=== PATIENT | female | born 1975 | race Caucasian/White ===

== ENCOUNTER → 2020-03-13 08:14 | Outpatient (CLI) | payer BC, SELFPAY ==
--- NOTE | ~2020-03-13 | MR_ITS ---
EXAMINATION: MR foot RT wo con DATE: 03/13/2020 09:02 INDICATION: Right foot pain TECHNIQUE: Magnetic resonance imaging (MRI) of the right fore/mid foot was performed without intraven ous contrast. Sequences included sagittal T1-weighted FSE, sagittal fluid sensitive FSE STIR, coronal PD-weighted FS FSE, coronal T1-weighted FSE, axial PD-weighted FS FSE, and axial PD-weighted FSE. COMPARISON: None FINDINGS: Bone alignment is normal. Low signal intensity bone island at the proximal diaphysis of the first met atarsal. Otherwise normal marrow signal throughout with no fracture, stress reaction or pathologic ma rrow replacing process. Mild osteoarthritis at the first metatarsophalangeal joint. No cortical erosi ons to suggest inflammatory arthritis. No joint effusions, bursitis, tenosynovitis or other abnormal fluid collections. Flexor and extensor tendons are normal. The Lisfranc ligament complex as well as t he collateral ligament complex at the metatarsophalangeal and interphalangeal joints. No abnormal mas ses identified. Specifically no Cespedes's neuroma. IMPRESSION: 1. Mild osteoarthritis at the first metatarsophalangeal joint. Reviewed, dictated and finalized at location A. STANT PRODUCER
== END ==
PROVIDERS: PCP Physician Assistant
DX: M19.071 Primary osteoarthritis, right ankle and foot (principal)
CPT/HCPCS: 73718

== ENCOUNTER 2020-03-22 11:05 | Outpatient (CLI) | payer BC, SELFPAY ==
--- NOTE | ~2020-03-22 | MM_ITS ---
EXAMINATION: MM screening jailene BI w jose HISTORY: Screening mammogram TECHNIQUE: Craniocaudal and mediolateral oblique 3-D tomosynthesis images were obtained and synthetic 2-D images were generated. CAD analysis was submitted and interpreted. COMPARISON: 03/20/2019, 03/14/2018, 02/24/2017 bilateral digital screening mammogram examinations BREAST PARENCHYMAL COMPOSITION: There are scattered areas of fibroglandular density. FINDINGS: There is no evidence of suspicious mass, calcification, or architectural distortion to sugg est malignancy in either breast. There has been no suspicious interval change. IMPRESSION: 1. No mammographic evidence of malignancy. 2. Recommend routine screening mammography in one year. BI-RADS Category 1: Negative Reviewed, dictated and finalized at location B. 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
== END 2020-03-22 11:06 | disposition home or self-care (01) ==
LOC: ANHIMG 11:08
PROVIDERS: PCP Physician Assistant; Visit Provider Obstetrics & Gynecology
DX: Z12.31 Encounter for screening mammogram for malignant neoplasm of breast (principal)
CPT/HCPCS: 77063; 77067

== ENCOUNTER 2020-04-22 13:19 | Emergency (ER) | payer BC, SELFPAY ==
--- NOTE | ~2020-04-22 | XR_ITS ---
EXAMINATION: XR chest 1V portable 04/22/2020 14:00 INDICATION: Chest pressure. Hypertension. PROCEDURE: AP portable chest COMPARISON: 12/15/2017 FINDINGS: The lungs are clear. The cardiomediastinal silhouette is within normal limits. There are no pleural effusions. There is no pneumothorax suspected. IMPRESSION: 1: NO ACUTE CARDIOPULMONARY DISEASE. Reviewed, dictated and finalized at location A. HANDLER
[2020-04-22 13:27] VITALS: BP 146/103; PULSE 85; RESP 18; TEMP 36.8; O2SAT 100
--- NOTE | 2020-04-22 14:15 | ED.URI ---
HPI - URI/Sore Throat General Chief Complaint: Upper Respiratory Infection Stated Complaint: sob, exp to covid Time Seen by Provider: 04/22/20 13:23 Source: patient Mode of arrival: ambulatory Limitations: no limitations History of Present Illness HPI Narrative: Patient is 45 years old white female complaining of general body aches, dry cough and chest tightness for the last 3 to 4 days. Patient's had similar symptoms started 5 days ago, tested positive for Covid today. Patient denies any fever, headache, nausea, vomiting. Complaining also of intermittent diarrhea. MD elicited complaint: cough Related Data Allergies Allergy/AdvReac Type Severity Reaction Status Date / Time No Known Allergies Allergy Uncoded 02/19/19 09:50 Review of Systems Review of Systems: Narrative: CONSTITUTIONAL: Denies fever, chills, or sweats. EYES: Denies visual changes, redness, or discharge. ENT: Denies rhinorrhea, congestion, sore throat, or otalgia. CARDIOVASCULAR: Denies chest pain, palpitations, or edema. RESPIRATORY: Cough GASTROINTESTINAL: Denies abdominal pain, nausea, vomiting, or diarrhea. GENITOURINARY: Denies dysuria or hematuria. SKIN: Denies rash or itching. MUSCULOSKELETAL: Denies back pain, joint pain, or myalgia. NEUROLOGIC: Denies headache, numbness, or weakness. PSYCHIATRIC: Denies anxiety or depression. PMFSH Family History Family History Father Hypertension Family history of emphysema Patient's father is Mother Family history of diabetes mellitus in first degree relative Family history of malignant neoplasm of breast in first degree relative Diabetes mellitus Social History Social History Smoking status: Never smoker Alcohol intake: current Exam Narrative: Exam Narrative: General appearance: Well-developed, well-nourished Skin: Normal color Head: Normocephalic, nontraumatic ENT: Oropharynx normal, ears normal, nose normal Neck: Supple, nontender Chest and respiratory: Airway patent, no respiratory distress, no accessory muscle use Heart: Regular rate/rhythm Neurologic: Alert and oriented ?3, ENTRY LEVEL ASSISTANT MANAGER is normal as tested, no gross motor deficit Course Course Emergency Course: Stable Vital Signs Vital signs: Vital Signs Temperature 36.8 C 04/22/20 13:27 Pulse Rate 85 04/22/20 13:27 Respiratory Rate 18 04/22/20 13:27 Blood Pressure 146/103 H 04/22/20 13:27 Pulse Oximetry 100 04/22/20 13:27 Temperature 36.8 C 04/22/20 13:27 Pulse Rate 85 04/22/20 13:27 Respiratory Rate 18 04/22/20 13:27 Blood Pressure 146/103 H 04/22/20 13:27 Pulse Oximetry 100 04/22/20 13:27 MDM - URI/Sore Throat MDM Narrative Medical decision making narrative: Covid infection is my concern. Patient looks okay, does not have fever or trouble breathing, oxygen saturation at 99 to 100% on room air, patient denying any chest pain Covid test plus chest x-ray ordered. Further plan to follow Differential Diagnosis Differential diagnosis: Likely upper respiratory infection and viral infection Lab Data Labs: Lab Results 04/22/20 Range/Units 13:39 SARS-CoV-2 RNA (RT-PCR) Pending Critical Care Time Critical Care Time Critical Care Time: No Discharge Plan Discharge Clinical Impression: Viral infection, Close exposure to COVID-19 virus Patient Disposition: Home, Self-Care Condition: Stable Instructions: How To Wash Your Hands (ED), Viral Syndrome (ED), Droplet Precautions (ED), COVID-19 (Coronavirus Disease 2019) (ED), Face Coverings (Masks) and COVID-19 (ED) Add
[2020-04-22 14:38] VITALS: BP 128/72; PULSE 80; RESP 18; O2SAT 100
[2020-04-23 01:42] LABS: SARS-CoV-2 RNA PCR Positive
== END 2020-04-22 14:41 | disposition home or self-care (01) ==
PROVIDERS: Emergency Provider Emergency Medicine; PCP Physician Assistant
DX: U07.1 COVID-19 (principal)
CPT/HCPCS: 71045; 87635; 99283; C9803; U0003

== ENCOUNTER 2020-05-14 06:49 | Outpatient (CLI) | payer BC, SELFPAY ==
[2020-05-14 07:39] LABS: Basophils Percent Auto 0.3 % (0.2-1.2); Eosinophils Absolute Auto 0.1 K/mm3 (0-0.3); Eosinophils Percent Auto 1.1 % (0-4.4); Hemoglobin 13.5 g/dL (12.0-15.0); Immature Granulocyte Absolute 0.02 K/mm3 (0.00-0.031); Immature Granulocyte Percent A 0.3 % (0-0.5); Lymphocytes Percent Auto 19.9 % (18.3-44.2); Mean Corpuscular HGB Conc 33.8 g/dl (32-36); Mean Corpuscular Hemoglobin 31.1 pg (26-34); Mean Corpuscular Volume 92.2 fl (80-100); Mean Platelet Volume 8.7 fl (7.4-10.4); Monocytes Absolute Auto 0.7 K/mm3 (0.1-0.6); Monocytes Percent Auto 10.1 % (2.6-8.5); Neutrophils Absolute Auto 4.5 K/mm3 (1.3-6.7); Neutrophils Percent Auto 68.3 % (45.5-73.1); Platelet Count Result 280 k/mm3 (150-375); Red Blood Count 4.34 M/mm3 (4.2-5.4); Red Cell Distribution Width 12.7 % (11.5-14.5); White Blood Count 6.5 K/mm3 (4.5-10.0)
[2020-05-14 07:54] LABS: Add Urine Microscopic? YES; Appearance Urine Clear (Clear); Bacteria Urine Trace /hpf; Bilirubin Urine Negative (Negative); Blood Urine Negative (Negative); Color Urine Yellow (Yellow); Glucose Urine UA Negative (Negative); Ketones Urine Trace mg/dL (Negative); Leukocyte Esterase Ur 1+ LEU/UL (Negative); Mucus Urine Rare /lpf; Nitrate Urine Negative (Negative); Protein Urine 1+ mg/dL (Negative); Specific Grav Ur 1.027 (1.001-1.035); Squamous Epithelial Cell Urine Many /hpf (Few); Urobilinogen Urine Negative mg/dL (<2.0); WBC Urine 16-20 /hpf
[2020-05-14 07:55] LABS: Alanine Aminotransferase 44 U/L (4-35); Albumin Level 3.9 g/dL (3.5-5.1); Alkaline Phosphatase 61 U/L (38-126); Anion Gap 7 mmol/L (8-16); Aspartate Amino Transferase 83 U/L (14-36); Bilirubin,Total 1.3 mg/dL (0.2-1.3); Blood Urea Nitrogen 18 mg/dL (7-17); Calcium 8.8 mg/dL (8.4-10.2); Carbon Dioxide 24 mmol/L (22-30); Chloride 105 mmol/L (98-107); Cholesterol 162 mg/dL (0-200); Estimated Glomerular Filt Rate 54; Glucose 92 mg/dL (65-105); HDL Direct 52 mg/dL; Potassium 4.2 mmol/L (3.4-5.0); Sodium 136 mmol/L (137-145); Triglycerides 131 mg/dL (<150)
[2020-05-14 08:05] LABS: LDL Cholesterol Direct 78 mg/dL
[2020-05-14 08:12] LABS: D Dimer 0.59 ug/mL (<0.48)
[2020-05-14 08:17] LABS: Hemoglobin A1C 4.7 % (<5.7)
[2020-05-14 09:14] LABS: Free T4 Free Thyroxine 1.08 ng/mL (0.78-2.19)
== END 2020-05-14 06:50 | disposition home or self-care (01) ==
LOC: ANHLAB 06:51
PROVIDERS: PCP Physician Assistant; Visit Provider Physician Assistant
DX: Z00.01 Encounter for general adult medical examination with abnormal findings (principal); Z13.1 Encounter for screening for diabetes mellitus
CPT/HCPCS: 36415; 80053; 80061; 81001; 83036; 84439; 84443; 85025; 85380; 87086

== ENCOUNTER 2020-05-19 11:15 | Outpatient (CLI) | payer BC, SELFPAY ==
--- NOTE | ~2020-05-19 | CT_ITS ---
EXAMINATION: CTA chest PE protocol EXAM DATE: 05/19/2020 11:34 INDICATION: COVID pneumonia. Elevated d-dimer. Chest pain and cough and shortness of breath. TECHNIQUE: Spiral CTA of the chest (pulmonary arteries) was performed with 100 cc Omnipaque 350 intr avenous contrast injection. Images were acquired during the pulmonary arterial phase. Coronal maxi mum intensity projection 3D-reconstructions were created by the technologist on dedicated workstation . Axial, coronal and sagittal reformatted images were reviewed. The dose-length product (DLP) for t his examination was 433.47 mGy-cm. The exposure was tailored according to patient size (auto mA exp osure control), and iterative reconstruction (ASIR) was used as additional dose reduction technique. There is no prior study for comparison. FINDINGS: Pulmonary arteries are well opacified and without intraluminal filling defects. No thora cic aortic dissection. Dependent groundglass opacity most likely atelectasis given distribution. Th ere are no pleural or pericardial effusions. Tracheobronchial tree is patent. There is no mediast inal, hilar or axillary lymphadenopathy. There is no pneumothorax. Heart normal in size. No kimberlyn dence of coronary arterial calcification. Upper abdomen is unremarkable. The bones are unremarkabl e. IMPRESSION: 1. Dependent groundglass opacity, likely atelectasis. 2. No pulmonary emboli. Reviewed, dictated and finalized at location B. AR WORKER
== END 2020-05-19 11:16 | disposition home or self-care (01) ==
PROVIDERS: PCP Physician Assistant; Visit Provider Physician Assistant
DX: R79.1 Abnormal coagulation profile (principal); R91.8 Other nonspecific abnormal finding of lung field
CPT/HCPCS: 71275; Q9967

== ENCOUNTER → 2021-03-24 07:37 | Outpatient (CLI) | payer BC, SELFPAY ==
--- NOTE | ~2021-03-24 | MM_ITS ---
EXAMINATION: MM screening jailene BI w jose HISTORY: Screening mammogram TECHNIQUE: Craniocaudal and mediolateral oblique 3-D tomosynthesis images were obtained and synthetic 2-D images were generated. CAD analysis was submitted and interpreted. COMPARISON: 03/22/2020, 03/20/2019, 03/14/2018 bilateral screening mammogram examinations BREAST PARENCHYMAL COMPOSITION: There are scattered areas of fibroglandular density. FINDINGS: There is no evidence of suspicious mass, calcification, or architectural distortion to sugg est malignancy in either breast. There has been no suspicious interval change. IMPRESSION: 1. No mammographic evidence of malignancy. 2. Recommend routine screening mammography in one year. BI-RADS Category 1: Negative Reviewed, dictated and finalized at location A. ECTOR BICYCLE
== END ==
PROVIDERS: PCP Physician Assistant; Visit Provider Obstetrics & Gynecology
DX: Z12.31 Encounter for screening mammogram for malignant neoplasm of breast (principal)
CPT/HCPCS: 77063; 77067

== ENCOUNTER → 2022-03-26 07:24 | Outpatient (CLI) | payer BC, SELFPAY ==
--- NOTE | ~2022-03-26 | MM_ITS ---
EXAMINATION: MM screening jailene BI w jose HISTORY: Screening TECHNIQUE: Craniocaudal and mediolateral oblique 3-D tomosynthesis images were obtained and synthetic 2-D images were generated. CAD analysis was submitted and interpreted. COMPARISON: Comparison to multiple prior studies sequentially, with oldest reviewed study dated 09/2015. BREAST PARENCHYMAL COMPOSITION: There are scattered areas of fibroglandular density. FINDINGS: There is no evidence of suspicious mass, calcification, or architectural distortion to sugg est malignancy in either breast. There has been no suspicious interval change. IMPRESSION: 1. No mammographic evidence of malignancy. 2. Recommend routine screening mammography in one year. BI-RADS Category 1: Negative Reviewed, dictated and finalized at location A. OPAEDIC TECHNOLOGIST
== END ==
PROVIDERS: PCP Physician Assistant; Visit Provider Obstetrics & Gynecology
DX: Z12.31 Encounter for screening mammogram for malignant neoplasm of breast (principal)
CPT/HCPCS: 77063; 77067

== ENCOUNTER 2022-07-13 09:44 | Outpatient (CLI) | payer BC, SELFPAY ==
--- NOTE | ~2022-07-13 | US_ITS ---
US venous doppler LE RT DATE: 07/13/2022 10:18 INDICATION: Right calf pain TECHNIQUE: Real-time and color flow imaging and Doppler analysis of the veins of the right lower extr emity COMPARISON: 05/24/2018 Right lower extremity venous duplex examination FINDINGS: The right greater saphenous vein is patent. There is spontaneous and phasic flow and normal augmentation and color flow signal and normal compression of the deep veins of the right lower extre mity. IMPRESSION: No evidence of deep venous thrombosis of right lower extremity Reviewed, dictated and finalized at Location A. Reviewed, dictated and finalized at location L. HEADER
== END 2022-07-13 09:45 | disposition home or self-care (01) ==
LOC: ANHIMG 09:49
PROVIDERS: PCP Physician Assistant; Visit Provider Physician Assistant
DX: M79.661 Pain in right lower leg (principal)
CPT/HCPCS: 93971

== ENCOUNTER → 2023-04-27 11:46 | Outpatient (CLI) | payer BC, SELFPAY ==
--- NOTE | ~2023-04-27 | MM_ITS ---
EXAMINATION: MM screening jailene BI w jose HISTORY: Screening mammogram TECHNIQUE: Craniocaudal and mediolateral oblique 3-D tomosynthesis images were obtained and synthetic 2-D images were generated. CAD analysis was submitted and interpreted. COMPARISON: 03/26/2022, 03/24/2021, 03/22/2020 bilateral screening mammogram examinations BREAST PARENCHYMAL COMPOSITION: There are scattered areas of fibroglandular density. FINDINGS: There is no evidence of suspicious mass, calcification, or architectural distortion to sugg est malignancy in either breast. There has been no suspicious interval change. IMPRESSION: 1. No mammographic evidence of malignancy. 2. Recommend routine screening mammography in one year. BI-RADS Category 1: Negative Reviewed, dictated and finalized at location A. CLEANER
== END ==
PROVIDERS: PCP Obstetrics & Gynecology; Visit Provider Obstetrics & Gynecology
DX: Z12.31 Encounter for screening mammogram for malignant neoplasm of breast (principal)
CPT/HCPCS: 77063; 77067

== ENCOUNTER 2024-02-08 13:23 | Outpatient (CLI) | payer BC, SELFPAY ==
--- NOTE | ~2024-02-08 | US_ITS ---
EXAMINATION: US renal BI DATE: 02/08/2024 13:42 INDICATION: Serum creatinine outside of reference range TECHNIQUE: Multiple ultrasound grayscale images of the kidneys were obtained. COMPARISON: None. FINDINGS: The right kidney measures 13.0 x 4.3 x 5.3 cm. The left kidney measures 10.5 x 4.7 x 5.5 cm. The kidn eys demonstrate normal echogenicity. Possible mild left hydronephrosis. There is no right hydronephro sis. No stones identified. The bladder is normal. IMPRESSION: 1. Possible mild left hydronephrosis. Otherwise normal kidneys. Reviewed, dictated and finalized at location A.
== END 2024-02-08 13:24 | disposition home or self-care (01) ==
LOC: MICIMG 13:24
PROVIDERS: PCP Physician Assistant; Visit Provider Physician Assistant
DX: R79.89 Other specified abnormal findings of blood chemistry (principal)
CPT/HCPCS: 76775

== ENCOUNTER 2024-03-20 12:49 | Outpatient (CLI) | payer BC, SELFPAY ==
--- NOTE | ~2024-03-20 | CT_ITS ---
CLINICAL INDICATION: Elevated creatinine COMPARISON: None. TECHNIQUE: Multiple contiguous axial images of the abdomen and pelvis were performed both prior to an d following the administration of with 100 mL Omnipaque-350 intravenous contrast The dose-length product (DLP) was 1922.62 mGy-cm. Automated exposure control and iterative reconstruction technique were employed. FINDINGS/OBSERVATIONS: Visualized lower thorax: The bilateral lung bases are clear. The heart is of normal size, without pericardial effusion. No Liver: The liver enhances homogeneously and is increased in size measuring 19 cm in longitudinal dimension. Gallbladder and biliary system: The gallbladder is only minimally distended, and otherwise unremarkable. Pancreas: The pancreas enhances homogeneously without ductal dilatation. Spleen: The spleen enhances homogeneously and is not enlarged measuring 8 cm in longitudinal dimension. Kidneys: The bilateral kidneys enhance and excrete contrast symmetrically without hydronephrosis or renal calc moon. Adrenal glands: Unremarkable. Gastrointestinal tract: Trace fecal stasis, and otherwise unremarkable. Appendix: Surgically absent Vasculature: Unremarkable. No aneurysmal dilatation or significant stenosis. Lymph nodes: No pathologically enlarged or morphologically suspicious lymph nodes within the retroperitoneum or at the root of the mesentery. Pelvic structures: The bladder is distended, and otherwise unremarkable. The uterus is anteverted and anteflexed. Intrauterine device in good position Body wall and musculoskeletal: No significant anterior abdominal wall hernia. No significant degenerative disease within the lower thoracic or lumbosacral spine. IMPRESSION: No hydronephrosis or obstructing renal calculi. The bilateral kidneys enhance and excrete contrast symmetrically. Hepatomegaly. Reviewed, dictated and finalized at location A. [employer]
[2024-03-20 13:11] LABS: Estimated Glomerular Filt Rate 48
== END 2024-03-20 12:50 | disposition home or self-care (01) ==
LOC: MICIMG 12:50
PROVIDERS: PCP Physician Assistant; Visit Provider Physician Assistant
DX: N13.30 Unspecified hydronephrosis (principal); R16.1 Splenomegaly, not elsewhere classified
CPT/HCPCS: 74178; Q9967

== ENCOUNTER 2024-11-06 08:14 | Outpatient (CLI) | payer BC, SELFPAY ==
--- OUTSIDE RECORDS SUMMARY | 2024-11-06 08:34 | XMS_ITS | Data Portability ---
Author Organization [facility] [employer], Main Office Address [address] [place] [address] Assessment No assessment recorded. Plan of Treatment Reminders Order Date Submit Date Provider Last Modified By Organization Details Last Modified Time Details Appointments None recorded. Lab TSH + free T4, serum 2022 023 [facility], [address], [address], [place], [address], 3 19:58:35 CMP, serum or plasma 2022 023 [facility], [address], [address], [place], [address], 3 19:58:38 CBC w/ auto diff 2022 023 [facility], [address], [place], [address], 3 19:58:39 lipid panel, serum 2022 023 [facility], [address], [place], [address], 3 19:58:37 HbA1c (hemoglobin A1c), blood 2022 023 [facility], [address], [place], [address], 3 19:58:39 insulin, serum 2022 023 [facility], [address], [place], [address], 3 19:58:40 Referral None recorded. Procedures None recorded. Surgeries septoplasty (SURG) 2022 022 M[facility] [id number] Not available 3 09:19:35 Imaging US, duplex, venous, lower extremity, unilateral 2022 023 [facility] (Imaging), [address], [place], [address], 3 17:50:33 Medication Orders Nurtec ODT 75 mg disintegrat ing tablet 2022 023 [facility]/Pharmacy #[id number], [address] [place], [address], 3 13:13:43 Mounjaro 2.5 mg/0.5 mL subcutaneou s pen injector 2022 023 [email or web address] [facility], [address], [place], [address], 3 12:31:55 Soma 350 mg tablet 2022 023 [email or web address] 4 [facility]/Pharmacy #[id number], [address] [place], [address], 3 12:29:41 Patient TargetsNo targets recorded. Patient InstructionsNo instructions recorded. Reason for Referral None Reported. Results Created Date Observation Date Name Description Value Unit Range Abnormal Flag Note LastModifiedBy Organization Detail LastModifiedTime 10/27/19 22 10/27/2021 VITAM IN B12/F OLATE , SERUM PANEL vitamin B12 941 pg/mL 200-11 00 normal Not Available [email or web address] [facility] [address] , [place], [address], 10/27/2021 03:14:01 10/27/19 22 10/27/2021 VITAM IN B12/F OLATE , SERUM PANEL folate, serum 15.7 NG/mL normal Refer ence Range Low: <3.4 Borde rline : 3.4-5 .4 Hilda l: >5.4 Not Available [address], [address], 10/27/2021 03:14:01 10/27/19 22 10/27/2021 TSH+F REE T4 TSH 1.49 mIU/L normal Refer ence Range > or = 20 Years 0.40- 4.50 Pregn brina Range s First trime ster 0.26- 2.66 Secon d trime ster 0.55- 2.73 Third trime ster 0.43- 2.91 Not Available [address], [address], 10/27/2021 03:14:00 10/27/19 22 10/27/2021 TSH+F REE T4 T4, free 1.1 NG/dL 0.8-1. 8 normal Not Available [address], [address], 10/27/2021 03:14:00 10/27/19 22 10/27/2021 IRON, TIBC AND JAMAL TIN PANEL iron, total 118 mcg/d L 40-190 normal Not Available [address], [address], 10/27/2021 03:13:59 10/27/19 22 10/27/2021 IRON, TIBC AND JAMAL TIN PANEL iron binding capacity 320 mcg/d L_(ca lc) 250-45 0 normal Not Available [address], [address], 10/27/2021 03:13:59 10/27/19 22 10/27/2021 IRON, TIBC AND JAMAL TIN PANEL % saturation 37 %_(ca lc) 16-45 normal Not Available [address], [address], 10/27/2021 03:13:59 10/27/19 22 10/27/2021 IRON, TIBC AND JAMAL TIN PANEL ferritin 24 NG/mL 16-232 normal Not Available [address], [address], 10/27/2021 03:13:59 09/25/19 23 09/25/2022 TSH+F REE T4 TSH 3.27 mIU/L normal Refer ence Range > or = 20 Years 0.40- 4.50 Pregn brina Range s First trime ster 0.26- 2.66 Secon d trime ster 0.55- 2.73 Third trime ster 0.43- 2.91 Not Available [address], [address], 09/25/2022 19:58:35 09/25/19 23 09/25/2022 TSH+F REE T4 T4, free 1.2 NG/dL 0.8-1. 8 normal Not Available [address], [address], 09/25/2022 19:58:35 09/25/19 23 09/25/2022 LIPID PANEL WITH RATIO S cholesterol, total 172 mg/dL <200 normal Not Available [address], [address], 09/25/2022 19:58:37 09/25/19 23 09/25/2022 LIPID PANEL WITH RATIO S HDL cholesterol 50 mg/dL > or = 50 normal Not Available [address], [address], 09/25/2022 19:58:37 09/25/19 23 09/25/2022 LIPID PANEL WITH RATIO S triglyceride s 165 mg/dL <150 high Not Available [address], [address], 09/25/2022 19:58:37 09/25/19 23 09/25/2022 LIPID PANEL WITH RATIO S LDL-choleste rol 96 mg/dL _(mira c) normal Refer ence range : <100 Eros able range <100 mg/dL for prima ry preve ntion ; <70 mg/dL for patie nts with CHD or diabe tic patie nts with > or = 2 CHD risk facto rs. LDL-C is now calcu lated using the Ana n-Hop kins chiu eleuterio n, which is a valid ated novel pamo yamileth nguyente r accur acy than the Fried shelbie equat ion in the estim ation of LDL-C . Ana gusman SS et al. KENJI. 2013; 310(1 9): 2061- 2068 (http ://ed ucati on.Hello Agent homerLatinCoin. com/f aq/FA Q164) Not Available [employer] [facility] [address] [place], [address], 09/25/2022 19:58:37 09/25/1909/25/2022 LIPID PANEL WITH RATIO S chol/HDLC ratio 3.4 (calc ) <5.0 normal Not Available [facility] [address] [place], [address], 09/25/2022 19:58:37 09/25/1909/25/2022 LIPID PANEL WITH RATIO S LDL/HDL ratio 1.9 (calc ) Below avera ge Risk: <2.34 [place] ge Risk: 2.35- 4.12 Moder ate Risk: 4.13- 5.56 High Risk: >5.57 Not Available [facility] [address] [place], [address], 09/25/2022 19:58:37 09/25/1909/25/2022 LIPID PANEL WITH RATIO S non HDL cholesterol 122 mg/dL _(mira c) <130 normal For patie nts with diabe stewart plus 1 major ASCVD risk facto r, treat ing to a non-H DL-C goal of <100 mg/dL (LDL- C of <70 mg/dL ) is consi маринаd a mai avalos optio n. Not Available [facility] [address] [place], [address], 09/25/2022 19:58:37 09/25/19 23 09/25/2022 COMPR EHENS EDILBERTO METAB OLIC PANEL glucose 94 mg/dL 65-99 normal Fasti ng refer ence inter itzel Not Available [facility] [address] [place], [address], 09/25/2022 19:58:38 09/25/19 23 09/25/2022 COMPR EHENS EDILBERTO METAB OLIC PANEL urea nitrogen (BUN) 14 mg/dL 7-25 normal Not Available [address] [address] [place], [address], 09/25/2022 19:58:38 09/25/19 23 09/25/2022 COMPR EHENS EDILBERTO METAB OLIC PANEL creatinine 1.28 mg/dL 0.50-0 .99 high Not Available [address] [address] [place], [address], 09/25/2022 19:58:38 09/25/19 23 09/25/2022 COMPR EHENS EDILBERTO METAB OLIC PANEL eGFR 53 mL/mi n/1.7 3m2 > or = 60 low The eGFR is based on the CKD-E PI 2020 equat ion. To calcu late the new eGFR from a previ ous Creat inine or Cysta tin C resul t, go to https ://calixto w.jane peterson.o star/xiang alvarez s/ kdoqi /gfr% 5Fcal culat or Not Available [facility] [address] [address] [place], [address], 09/25/2022 19:58:38 09/25/19 23 09/25/2022 COMPR EHENS EDILBERTO METAB OLIC PANEL BUN/creatini ne ratio 11 (calc ) 6-22 normal Not Available [address] [address] [place], [address], 09/25/2022 19:58:38 09/25/19 23 09/25/2022 COMPR EHENS EDILBERTO METAB OLIC PANEL sodium 139 mmol/ L 135-14 6 normal Not Available [address], [address], 09/25/2022 19:58:38 09/25/19 23 09/25/2022 COMPR EHENS EDILBERTO METAB OLIC PANEL potassium 4.1 mmol/ L 3.5-5. 3 normal Not Available [address], [address], 09/25/2022 19:58:38 09/25/19 23 09/25/2022 COMPR EHENS EDILBERTO METAB OLIC PANEL chloride 106 mmol/ L 98-110 normal Not Available [address], [address], 09/25/2022 19:58:38 09/25/19 23 09/25/2022 COMPR EHENS EDILBERTO METAB OLIC PANEL carbon dioxide 26 mmol/ L 20-32 normal Not Available [address], [address], 09/25/2022 19:58:38 09/25/19 23 09/25/2022 COMPR EHENS EDILBERTO METAB OLIC PANEL calcium 8.9 mg/dL 8.6-10 .2 normal Not Available [address], [address], 09/25/2022 19:58:38 09/25/19 23 09/25/2022 COMPR EHENS EDILBERTO METAB OLIC PANEL protein, total 6.3 g/dL 6.1-8. 1 normal Not Available [address], [address], 09/25/2022 19:58:38 09/25/19 23 09/25/2022 COMPR EHENS EDILBERTO METAB OLIC PANEL albumin 4.0 g/dL 3.6-5. 1 normal Not Available [address] [address] [place], [address], 09/25/2022 19:58:38 09/25/19 23 09/25/2022 COMPR EHENS EDILBERTO METAB OLIC PANEL globulin 2.3 g/dL_ (calc ) 1.9-3. 7 normal Not Available [address], [address], 09/25/2022 19:58:38 09/25/19 23 09/25/2022 COMPR EHENS EDILBERTO METAB OLIC PANEL albumin/glob ulin ratio 1.7 (calc ) 1.0-2. 5 normal Not Available [address], [address], 09/25/2022 19:58:38 09/25/19 23 09/25/2022 COMPR EHENS EDILBERTO METAB OLIC PANEL bilirubin, total 1.2 mg/dL 0.2-1. 2 normal Not Available [address] [address] [place], [address], 09/25/2022 19:58:38 09/25/19 23 09/25/2022 COMPR EHENS EDILBERTO METAB OLIC PANEL alkaline phosphatase 58 U/L 31-125 normal Not Available [address] [address] [place], [address], 09/25/2022 19:58:38 09/25/19 23 09/25/2022 COMPR EHENS EDILBERTO METAB OLIC PANEL AST 14 U/L 10-35 normal Not Available [address], [address], 09/25/2022 19:58:38 09/25/19 23 09/25/2022 COMPR EHENS EDILBERTO METAB OLIC PANEL ALT 14 U/L 6-29 normal Not Available [address], [address], 09/25/2022 19:58:38 09/25/19 23 09/25/2022 HEMOG LOBIN A1C hemoglobin A1C 5.0 %_of_ total _HGB <5.7 normal For the purpo se of catrachito cardenas for the prese nce of diabe stewart: <5.7% Consi stent with the absen ce of diabe stewart 5.7-6 .4% Consi stent with incre ased risk for diabe stewart (pred iabet es) > or =6.5% Consi stent with diabe stewart This assay resul t is consi stent with a decre ased risk of diabe stewart. Curre ntly, no conse nsus exist s brain granda use of hemog lobin A1c for diagn osis of diabe stewart in child mono. Accor ding to Ameri can Diabe stewart Assoc iatio n (ADA) guide lines , hemog lobin A1c <7.0% repre sents optim al contr ol in non-p regna nt diabe tic patie nts. Diffe rent metri cs may apply to speci fic patie nt popul ation s. Stand ards of Medic al Care in Diabe stewart(A DA). Not Available [facility] [address] [address] [place], [address], 09/25/2022 19:58:39 09/25/19 23 09/25/2022 CBC (INCL UDES DIFF/ PLT) white blood cell count 6.4 thous and/u L 3.8-10 .8 normal Not Available [facility] [address] [address] [place], [address], 09/25/2022 19:58:39 09/25/19 23 09/25/2022 CBC (INCL UDES DIFF/ PLT) red blood cell count 4.67 shan on/uL 3.80-5 .10 normal Not Available [facility] [address] [address] [place], [address], 09/25/2022 19:58:39 09/25/19 23 09/25/2022 CBC (INCL UDES DIFF/ PLT) hemoglobin 14.6 g/dL 11.7-1 5.5 normal Not Available [address], [address], 09/25/2022 19:58:39 09/25/19 23 09/25/2022 CBC (INCL UDES DIFF/ PLT) hematocrit 43.4 % 35.0-4 5.0 normal Not Available [address], [address], 09/25/2022 19:58:39 09/25/19 23 09/25/2022 CBC (INCL UDES DIFF/ PLT) MCV 92.9 fL 80.0-1 00.0 normal Not Available [address], [address], 09/25/2022 19:58:39 09/25/19 23 09/25/2022 CBC (INCL UDES DIFF/ PLT) MCH 31.3 pg 27.0-3 3.0 normal Not Available [address], [address], 09/25/2022 19:58:39 09/25/19 23 09/25/2022 CBC (INCL UDES DIFF/ PLT) MCHC 33.6 g/dL 32.0-3 6.0 normal Not Available [address], [address], 09/25/2022 19:58:39 09/25/19 23 09/25/2022 CBC (INCL UDES DIFF/ PLT) RDW 13.0 % 11.0-1 5.0 normal Not Available [address], [address], 09/25/2022 19:58:39 09/25/19 23 09/25/2022 CBC (INCL UDES DIFF/ PLT) platelet count 295 thous and/u L 140-40 0 normal Not Available [address], [address], 09/25/2022 19:58:39 09/25/19 23 09/25/2022 CBC (INCL UDES DIFF/ PLT) MPV 9.4 fL 7.5-12 .5 normal Not Available [address], [address], 09/25/2022 19:58:39 09/25/19 23 09/25/2022 CBC (INCL UDES DIFF/ PLT) absolute neutrophils 3584 cells /uL 1500-7 800 normal Not Available [address], [address], 09/25/2022 19:58:39 09/25/19 23 09/25/2022 CBC (INCL UDES DIFF/ PLT) absolute lymphocytes 2150 cells /uL 850-39 00 normal Not Available [address], [address], 09/25/2022 19:58:39 09/25/19 23 09/25/2022 CBC (INCL UDES DIFF/ PLT) absolute monocytes 512 cells /uL 200-95 0 normal Not Available [address], [address], 09/25/2022 19:58:39 09/25/19 23 09/25/2022 CBC (INCL UDES DIFF/ PLT) absolute eosinophils 122 cells /uL 15-500 normal Not Available [address], [address], 09/25/2022 19:58:39 09/25/19 23 09/25/2022 CBC (INCL UDES DIFF/ PLT) absolute basophils 32 cells /uL 0-200 normal Not Available [address], [address], 09/25/2022 19:58:39 09/25/19 23 09/25/2022 CBC (INCL UDES DIFF/ PLT) neutrophils 56 % normal Not Available [address], [place], [address], 09/25/2022 19:58:39 09/25/19 23 09/25/2022 CBC (INCL UDES DIFF/ PLT) lymphocytes 33.6 % normal Not Available [facility] [address], [address], 09/25/2022 19:58:39 09/25/19 23 09/25/2022 CBC (INCL UDES DIFF/ PLT) monocytes 8.0 % normal Not Available [facility] [address], [address], 09/25/2022 19:58:39 09/25/19 23 09/25/2022 CBC (INCL UDES DIFF/ PLT) eosinophils 1.9 % normal Not Available [facility] [address], [address], 09/25/2022 19:58:39 09/25/19 23 09/25/2022 CBC (INCL UDES DIFF/ PLT) basophils 0.5 % normal Not Available [facility] [address], [address], 09/25/2022 19:58:39 09/25/19 23 09/25/2022 INSUL IN insulin 14.1 uIU/m L normal Refer ence Range < or = 18.4 Risk: Optim al < or = 18.4 Moder ate NA High >18.4 Adult cardi ovasc ular event risk categ ory cut point s (opti mal, moder ate, high) are based on Insul in Refer ence Inter itzel studi es perfo [facility]med at [facility] in 2021. Not Available [facility] [address], [address], 09/25/2022 19:58:40 03/31/20 22 03/26/2022 MAMMO , scree theresa, digit al, bilat eral No observ ation record ed. [id number] [facility] [address], [place], [address], 07/07/2022 09:19:37 07/14/1907/13/2022 US, itz x, reilly s, lower extre mity, unila teral No observ ation record ed. [facility] (Imaging) [address], [place], [address], 07/13/2022 17:50:33 Result Notes None recorded. 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 Active 2022 Not Available [facility] 3 09:16:54 Hypertroph y of nasal turbinates 33191329 Active 2021 Not Available [facility] 3 09:16:54 Dysmenorrh ea 293912559 Active Not Available [facility] 3 09:16:54 Mechanical complicati on of intrauteri ne contracept edilberto device 585011253 Active Not Available [facility] 3 09:16:55 Breasts asymmetric al 234125020 Active Not Available [facility] 3 09:16:55 Pain in pelvis 31139614 Active Not Available [facility] 3 09:16:55 Vaginitis 53859191 Active Not Available [facility] 3 09:16:55 Hypertensi ve disorder 38522292 Active Not Available [facility] 3 09:16:55 Anxiety 03043554 Active 2021 Not Available [facility] 3 09:16:55 Subclinica l hypothyroi dism 64151923 Active 2021 Not Available [facility] 3 09:16:55 Essential hypertensi on 37308320 Active Not Available [facility] 3 09:16:55 Snoring 10988337 Active 2021 Not Available [facility] 3 09:16:55 Cyst of ovary 56637736 Active Not Available [facility] 3 09:16:55 Irregular periods 81326742 Active Not Available [facility] 3 09:16:55 Weight gain 2794066 Active 2021 Not Available [facility] 3 09:16:55 Pain of right calf 1028607804589 103 Active 2022 [facility] [address], [place], [address] , [employer] 3 09:46:01 Muscle tension pain 998170460 Active 2022 [facility] [address], [place], [address] , [employer] 3 10:37:33 Migraine 08562782 Active 2022 [facility] [address], [address], [place], [address] , [employer] [facility] 3 13:13:13 Insulin resistance 383386962 Active 2022 [facility] [address], [place], [address] , [employer] [facility] 3 10:32:12 Congestion of nasal sinus 14612478 Active 2022 [facility] [address], [place], [address] , [employer] [facility] 3 16:00:02 Notes:04/2020-POS COVID Problem Notes None recorded. Procedures Surgical History Date Name Laterality Status Provider Name and Address Organization Details Recorded Time 11/24/19 SEPTOPLASTY (SURG) completed Not Available [facility] 07/07/2022 09:19:35 03/24/20 21 Most Recent Mammogram completed Not Available [facility] 07/07/2022 09:14:20 10/28/19 21 Date of Last Pap Smear completed Not Available [facility] 07/07/2022 09:14:19 10/08/19 20 Orthopedic Surgery completed Not Available [facility] 07/07/2022 09:14:20 02/20/20 19 Date of Last Colonoscopy completed Not Available [facility] 07/07/2022 09:14:19 02/20/20 19 Colonoscopy completed Not Available [facility] 07/08/19 23 09:14:20 04/05/20 18 nasal septoplasty completed Not Available [facility] 07/07/2022 09:14:20 04/20/20 17 PRESCHOOL PROGRAM DIRECTOR Procedure completed Not Available [facility] 2022 09:14:20 04/24/20 12 PRESCHOOL PROGRAM DIRECTOR Procedure completed Not Available [facility] 2022 09:14:20 03/31/20 10 PRESCHOOL PROGRAM DIRECTOR Surgery completed Not Available [facility] 07/08/19 09:14:20 other completed Not Available [facility] 05/2022 09:14:20 Appendectomy completed Not Available [facility] 07/07/2022 09:14:20 PRESCHOOL PROGRAM DIRECTOR Surgery completed Not Available [facility] 07/07/2022 09:14:20 Imaging Results None recorded. Procedure Notes None recorded. Medical Equipment None Reported. Allergies No known drug allergies Medications Name Sig Start Date Stop Date Status Note LastModified by Organization Details LastModified Time losartan 50 mg tablet TAKE 1 TABLET DAILY 11/29 completed Not Available Not Available Not Available amoxicillin 500 mg capsule active Not Available Not Available Not Available Mirena 21 mcg/24 hr (up to 8 years) 52 mg intrauterin e device Take 1 device by intrauter ine route. active Not Available Not Available No t Available methocarbam ol 500 mg tablet TAKE 2 TABLETS BY MOUTH TWICE A DAY active Not Available Not Available No t Available buspirone 5 mg tablet TAKE 1 TABLET BY MOUTH TWICE A DAY active Not Available Not Available No t Available azithromyci n 250 mg tablet 10/22 completed Not Available Not Available Not Available fluconazole 150 mg tablet TAKE 1 TABLET EVERY DAY BY ORAL ROUTE FOR 1 DAY. active Not Available Not Available No t Available valacyclovi r 1 gram tablet TAKE 2 TABLETS EVERY 12 HOURS BY ORAL ROUTE NEEDED FOR 1 DAY. active Not Available Not Available No t Available sumatriptan 100 mg tablet take 1 tab po at onset of migraine. max 1 tablet in 24 hours. active Not Available Not Available No t Available hydrocodone 5 mg-acetamin ophen 325 mg tablet 10/27 completed Not Available Not Available Not Available meloxicam 15 mg tablet TAKE 1 TABLET BY MOUTH EVERY DAY 10/17 completed Not Available Not Available Not Available ondansetron HCl 4 mg tablet 10/17 completed Not Available Not Available Not Available Medrol (Abdiaziz) 4 mg tablets in a dose pack take as directed active Not Available Not Available No t Available prednisone 20 mg tablet TAKE 2 TABLETS BY MOUTH EVERY DAY FOR 5 DAYS active Not Available Not Available No t Available propranolol ER 60 mg capsule,24 hr,extended release Take 1 capsule every day by oral route for 30 days. 10/22 completed Not Available Not Available Not Available sumatriptan 50 mg tablet 10/17 completed Not Available Not Available Not Available penicillin V potassium 500 mg tablet TAKE 1 TABLET BY MOUTH 4 TIMES A DAY UNTIL FINISHED 09/15 completed Not Available Not Available Not Available topiramate 25 mg tablet TAKE 1 TABLET BY MOUTH EVERY DAY IN THE MORNING AND EVENING 10/17 completed Not Available Not Available Not Available phentermine 37.5 mg tablet TAKE 1 TABLET BY MOUTH EVERY DAY active Not Available Not Available No t Available acetaminoph en 300 mg-codeine 30 mg tablet active Not Available Not Available Not Available acyclovir 400 mg tablet active Not Available Not Available Not Available tramadol 50 mg tablet Take 1 tablet every 6 hours by oral route as needed. active Not Available Not Available No t Available triamcinolo ne acetonide 0.1 % topical cream 10/17 completed Not Available Not Available Not Available zolmitripta n 5 mg tablet 10/17 completed Not Available Not Available Not Available ketorolac 10 mg tablet 10/27 completed Not Available Not Available Not Available nortriptyli ne 25 mg capsule TAKE 2 CAPSULES BY MOUTH NIGHTLY. active Not Available Not Available No t Available cefadroxil 500 mg capsule TAKE 1 CAPSULE BY MOUTH TWICE A DAY 10/17 completed Not Available Not Available Not Available oxycodone-a cetaminophe n 5 mg-325 mg tablet TAKE 1 TABLET BY MOUTH EVERY 4 TO 6 HOURS NEEDED FOR PAIN 09/15 completed Not Available Not Available Not Available amoxicillin 875 mg tablet Take 1 tablet every 12 hours by oral route. active Not Available Not Available No t Available aspirin 325 mg tablet,duy yed release TAKE 1 TABLET BY MOUTH TWICE A DAY. STARTING ON 10/26/1910/27 completed Not Available Not Available Not Available gabapentin 800 mg tablet TAKE 1 TABLET BY MOUTH 3 TIMES A DAY 09/15 completed Not Available Not Available Not Available sulfacetami de sodium 10 % eye drops active Not Available Not Available Not Available baclofen 10 mg tablet PLEASE SEE ATTACHED FOR DETAILED DIRECTION S active Not Available Not Available No t Available Soma 350 mg tablet Take 1 tablet twice a day by oral route as needed. 09/16 completed Not Available Not Available Not Available benzonatate 100 mg capsule 10/22 completed Not Available Not Available Not Available levothyroxi ne 50 mcg tablet TAKE 1 TABLET EVERY DAY BY ORAL ROUTE IN THE MORNING. 07/13 completed Not Available Not Available Not Available hydrocodone 7.5 mg-acetamin ophen 325 mg tablet TAKE 1 TABLET BY MOUTH EVERY 4 HOURS NEEDED 07/13 completed Not Available Not Available Not Available cephalexin 500 mg capsule TAKE 1 CAPSULE BY ORAL ROUTE EVERY 6 HOURS FOR 7 DAYS 10/17 completed Not Available Not Available Not Available oseltamivir 75 mg capsule Take 1 capsule every day by oral route for 10 days. 07/12 completed Not Available Not Available Not Available lisinopril 10 mg tablet 09/13 completed Not Available Not Available Not Available docusate sodium 100 mg capsule TAKE ONE CAPSULE BY MOUTH EVERY 12 HOURS NEEDED 10/17 completed Not Available Not Available Not Available gabapentin 300 mg capsule PLEASE SEE ATTACHED FOR DETAILED DIRECTION S 09/15 completed Not Available Not Available Not Available montelukast 10 mg tablet TAKE 1 TABLET BY MOUTH EVERY DAY IN THE EVENING active Not Available Not Available No t Available [place] Thyroid 30 mg tablet TAKE 1 TABLET BY MOUTH EVERY MORNING active Not Available Not Available No t Available gabapentin 100 mg capsule TAKE 1 CAPSULE BY MOUTH THREE TIMES A DAY active Not Available Not Available No t Available ergocalcife rol (vitamin D2) 1,250 mcg (50,000 unit) capsule TAKE 1 CAPSULE PO MONTHLY NOW active Not Available Not Available No t Available budesonide DR - ER 3 mg capsule,del ayed,extend ed release 10/22 completed Not Available Not Available Not Available albuterol sulfate HFA 90 mcg/actuati on aerosol inhaler TAKE 2 PUFFS BY MOUTH EVERY 4 TO 6 HOURS NEEDED active Not Available Not Available No t Available ketoconazol e 2 % topical cream APPLY TO FOOT/HAND TWICE A DAY active Not Available Not Available No t Available cefdinir 300 mg capsule Take 1 capsule every 12 hours by oral route. active Not Available Not Available No t Available losartan 100 mg tablet TAKE 1 TABLET BY MOUTH EVERY DAY active Not Available Not Available No t Available amoxicillin 875 mg-potassiu m clavulanate 125 mg tablet 09/23 completed Not Available Not Available Not Available Relpax 40 mg tablet Take by oral route. 01/19 completed Not Available Not Available Not Available Senna Plus 8.6 mg-50 mg tablet 10/27 completed Not Available Not Available Not Available topiramate 50 mg tablet 10/17 completed Not Available Not Available Not Available duloxetine 20 mg capsule,del ayed release TAKE 1 CAPSULE BY MOUTH TWICE A DAY active Not Available Not Available No t Available duloxetine 30 mg capsule,del ayed release TAKE 1 CAPSULE BY MOUTH TWICE A DAY active Not Available Not Available No t Available pregabalin 50 mg capsule TAKE 1 CAPSULE BY MOUTH TWICE A DAY 09/15 completed Not Available Not Available Not Available chlorhexidi ne gluconate 0.12 % mouthwash active Not Available Not Available No t Available Symbicort 80 mcg-4.5 mcg/actuati on HFA aerosol inhaler Inhale 2 puffs twice a day by inhalatio n route. active Not Available Not Available No t Available nebivolol 5 mg tablet Take 1 tablet every day by oral route. active Not Available Not Available No t Available Novofine 32 32 gauge x 1/4 needle use daily as directed active Not Available Not Available No t Available Zyrtec 10 mg capsule Take 1 capsule every day by oral route. 2017 active Not Available Not Available Not Avai lable butalbital- acetaminoph en-caffeine 50 mg-300 mg-40 mg capsule 09/23 completed Not Available Not Available Not Available Suprep Bowel Prep Kit 17.5 gram-3.13 gram-1.6 gram oral solution 10/22 completed Not Available Not Available Not Available Xarelto 15 mg tablet TAKE 1 TABLET BY MOUTH TWICE A DAY 10/17 completed Not Available Not Available Not Available Xarelto 20 mg tablet TAKE 1 TABLET BY MOUTH EVERY DAY 10/17 completed Not Available Not Available Not Available adapalene 0.1 %-benzoyl peroxide 2.5 % topical gel with pump APPLY A THIN LAYER TO AFFECTED AREA ON FACE AND/OR UPPER TRUNK AFTER WASHING ONCE DAILY NEEDED active Not Available Not Available No t Available Saxenda 3 mg/0.5 mL (18 mg/3 mL) subcutaneou s pen injector active Not Available Not Available Not Available Odactra 12 SQ-HDM sublingual tablet PLACE ONE TABLET UNDER THE TONGUE DAILY YEAR ROUND 07/13 completed Not Available Not Available Not Available [facility] ODT 75 mg disintegrat ing tablet TAKE 1 TABLET EVERY DAY BY ORAL ROUTE NEEDED. active Not Available Not Available No t Available Ozempic 1 mg/dose (4 mg/3 mL) subcutaneou s pen injector INJECT 1 MG SUBCUTANE OUSLY WEEKLY DIRECTED 01/27 completed Not Available Not Available Not Available Wegovy 0.5 mg/0.5 mL subcutaneou s pen injector Inject 0.5 mg every week by subcutane ous route as directed. 12/04 completed Not Available Not Available Not Available Ozempic 2 mg/dose (8 mg/3 mL) subcutaneou s pen injector INJECT 2 MG EVERY WEEK BY SUBCUTANE OUS ROUTE DIRECTED. active Not Available Not Available No t Available Mounjaro 2.5 mg/0.5 mL subcutaneou s pen injector Inject 2.5 mg every week by subcutane ous route as directed. 01/27 completed Not Available Not Available Not Available Ozempic 0.25 mg or 0.5 mg (2 mg/3 mL) subcutaneou s pen injector PLEASE SEE ATTACHED FOR DETAILED DIRECTION S 01/27 completed Not Available Not Available Not Available Zepbound 2.5 mg/0.5 mL subcutaneou s pen injector Inject 2.5 mg every week by subcutane ous route as directed. 12/20/ 2023 active Not Available Not Available Not Avai lable Vitals Date Recorded Body height Body temperature Body mass index (BMI) Body weight Respiratory rate Oxygen saturation Oxygen saturation in Arterial blood by Pulse oximetry Heart rate Systolic blood pressure Diastolic blood pressure Provider Name and Address Organization Details Last Updated DateTime 3 177.8 cm 97.3 [degF] 34.5 kg/m2 704814. 96 g 16 /min 97 % 97 % 96 /min 122 mm[Hg] 82 mm[Hg] DARIA Mari [facility] 3 09:17:15 Date Recorded Systolic blood pressure Diastolic blood pressure Provider Name and Address Organization Details Last Updated DateTime 09/16/2022 140 mm[Hg] 80 mm[Hg] HIWOT Lucas [address] [employer], [address], [address], [place] 09/16/2022 13:15:11 Date Recorded Body height Body temperature Body mass index (BMI) Body weight Respiratory rate Oxygen saturation Oxygen saturation in Arterial blood by Pulse oximetry Heart rate Systolic blood pressure Diastolic blood pressure Provider Name and Address Organization Details Last Updated DateTime 3 177.8 cm 97.8 [degF] 34.9 kg/m2 499949. 95 g 16 /min 99 % 99 % 68 /min 138 mm[Hg] 80 mm[Hg] DARIA Mari [facility] 3 12:30:41 Date Recorded Body height Body temperature Provider N mj and Address Organization Details Last Updated DateTime 10/29/2021 177.8 cm 98.1 [degF] Not Available [employer] 07/07/2022 09:16:18 Date Recorded Body height Systolic blood pressure Diastolic blood pressure Provider Name and Address Organization Details Last Updated DateTime 12/21/2022 177.8 cm 148 mm[Hg] 102 mm[Hg] Nickie Briggs RN [employer] 12/21/2022 10:45:02 Date Recorded Body mass index (BMI) Provider Name and Address Organization Details Last Updated DateTime 03/22/2023 33 kg/m2 HIWOT Lucas [address], [facility] [address], [place], [address], [facility] [employer] 04/03/2023 14:39:00 Date Recorded Body height Body weight Body temperature Heart rate Oxygen saturation Oxygen saturation in Arterial blood by Pulse oximetry Systolic blood pressure Diastolic blood pressure Provider Name and Address Organization Details Last Updated DateTime 3 177.8 cm 718752. 25 g 97.3 [degF] 94 /min 97 % 97 % 126 mm[Hg] 86 mm[Hg] Nickie Briggs RN [facility] [employer] 3 12:04:52 Social History Question Answer Notes LastModified by Organizat ion Details LastModified Time Tobacco Smoking Status Never Smoker YOSELIN Massey, [place] [employer] [facility] [employer] 12/21/2022 10:25:48 What Is Your Level Of Caffeine Consumption? Moderate [id number] Information not available 07/07/2022 How Much Tobacco Do You Chew? None [id number] Information not available 07/07/2022 In The 14 Days Before Symptom Onset, Have You Had Close Contact With A Laboratory-confirm ed COVID-19 While That Case Was Ill? No Information n ot available 12/21/2022 In The 14 Days Before Symptom Onset, Have You Had Close Contact With A Person Who Is Under Investigation For COVID-19 While That Person Was Ill? No Information not available 12/21/2022 What Type Of Diet Are You Following? REGULAR [id number] Information not available 07/07/2022 Which Illicit Or Recreational Drugs Have You Used? None Information not available 12/21/2022 Have There Been Any Changes To Your Family Or Social Situation? No Information no t available 12/21/2022 Do You Use Insect Repellent Routinely? No Information not available 12/21/2022 What Is Your Relationship Status? [id number] Information not available 07/07/2022 Do You Use Your Seat Belt Or Car Seat Routinely? Yes Information not available 12/21/2022 Do You Have Smoke And Carbon Monoxide Detectors In Your Home? Yes Information not available 12/21/2022 How Much Tobacco Do You Smoke? No [id number] Information not available 07/07/2022 Do You Use Sunscreen Routinely? Yes Information not available 12/21/2022 Have You Recently Traveled Abroad? No Information not available 12/21/2022 Do You Have Any Dietary Restrictions? No Information not available 12/21/2022 Sex: Unknown Functional Status Question Answer Note LastModified by Organizat ion Details LastModified Time Do you use any illicit or recreational drugs? No Information not available 12/21/2022 Do you or have you ever used any other forms of tobacco or nicotine? No Information not available 12/21/2022 What is your level of alcohol consumption? Occasional [id number] Information not available 07/07/2022 Do you or have you ever used smokeless tobacco? Never used smokeless tobacco [id number] Information not available 07/07/2022 Are you currently employed? 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 Never used electronic cigarettes Information not available 12/21/2022 What is your exercise level? Moderate [id number] Information not available 07/07/2022 Mental Status None recorded. Family History Relationship Description Onset Age of this Age Resolved Age Notes LastModified by Organization Details LastModified Time Mother Diabetes mellitus [id number] Not available 07/07/2022 09:14:22 Mother Malignant tumor of breast x 2 [id number] Not available 07/07/2022 09:14:22 Mother Hypertensive disorder [id number] Not available 07/07/2022 09:14:22 Paternal Uncle Malignant neoplasm of lung [id number] Not available 07/07/2022 09:14:22 Father Hypertensive disorder [id number] Not available 07/07/2022 09:14:22 Father Problem drinker MIGRATION.006 [id number] Not available 07/07/2022 09:14:22 Father Pulmonary emphysema [id number].161 [id number] Not available 07/07/2022 09:14:22 Medical History Condition Response ANXIETY DISORDER Y BLOOD CLOTS Y DIZZINESS Y HISTORY WITH COMPLICATIONS WITH ANESTHES IA ? Y HYPOTHYROIDISM Y OTHER # 1 Y BOWEL PROBLEMS Y DEPRESSION (INCLUDING POST ) Y HYPERTENSION Y Gynecological History Statement/Question Response Abnormal Pap Y Date of Last Colonoscopy 02/19/2019 Date of LMP 10/22/2020 Sexually Active? Y Date of Last Pap 09/12/2016 Date of Last Pap Smear 10/27/2020 Current Control Method IUD Age at Menarche 16 Most Recent Mammogram 03/24/2021 Obstetrics History GPAL:G 6 P 2 0 4 2 Type Value Full Term 2 Spontaneous 4 Living 2 Total 6 Immunizations Vaccine Type Date Status Note Provider Nam e and Address Organization Details Recorded Time COVID-19, mRNA, LNP-S, PF, 30 mcg/0.3 mL dose 09/03/2020 completed Not Available [facility] 3 09:19:30 COVID-19, mRNA, LNP-S, PF, 30 mcg/0.3 mL dose 08/12/2020 completed Not Available [facility] 3 09:19:30 Past Encounters Encounter ID Performer Location Encounter Start Date Encounter Closed Date Diagnosis/Indication Diagnosis SNOMED-CT Code Diagnosis ICD10 Code Diagnosis Note [id number] [facility] ic_[facility] _ATHENA_M IGRATION_ DEFAULT_1 _1 , 10/27/2020 00:00:00 10/27/2020 17:24:33 [id number] HIWOT Lucas [facility] Internal Med [place] [address] [place] [address] 11/20/2020 00:00:00 12/05/2020 17:47:23 [id number] Markell Pratt MD [facility] Internal Med [place] [address] [place] [address] 09/15/2021 00:00:00 10/06/2021 18:25:32 [id number] Markell Pratt MD [facility] Internal Med [place] [address] [place] [address] 10/27/2021 00:00:00 11/04/2021 13:51:55 [id number] Khoa Ly MD [facility] ENT [place] [address] [place] [address] 10/29/2021 00:00:00 10/29/2021 14:24:04 [id number] HIWOT Lucas [facility] Internal Med [place] [address] [place] [address] 07/13/2022 09:08:37 07/13/2022 09:55:31 Pain of right calf 4732668134 301585 M79.661 onset over 2 years ago after right ankle surgery that she had nerve block in her calf area:STAT RLE venous doppler check;Upda te negative for DVT. Muscle tension pain 2790 60623 M79.10 Trial of soma muscle relaxer or the Right lower calf muscular pain. [id number] HIWOT Lucas [facility] Internal Med [place] [address] [place] [address] 09/16/2022 12:25:19 09/16/2022 13:24:31 Subclinical hypothyroidism 26987052 E02 on supplement . due for TFTs Anxiety 32026917 F41.9 stable on buspar 5mg bid Body mass index 30+ - obesity 146226217 Z68.34 pt would like to get raji for weight loss . aware this may not be approved Benign ess ential hypertension 1225318 I10 stable on losartan 50mg daily Cholesterol screening 27 0219549 Z13.220 fasting lipids due Diabetes m ellitus screening 341685844 Z13.1 diabetes screening due Long-term drug therapy 465776138 Z79.899 all labs due Migraine 82053987 G43.90 9 [facility] one tab PRN 24 hours Adult heal th examination 749630097 Z00.01 well exam completed [id number] HIWOT Lucas [facility] Internal Med [place] [address] [facility] [place] [address] 12/21/2022 10:24:57 12/21/2022 10:47:32 [id number] HIWOT Lucas [facility] Internal Med [place] [address] [facility] [place] [address] 03/22/2023 12:00:19 03/22/2023 12:53:16 Benign essential hypertension 9159245 I10 stable on losartan 50mg daily [facility] hypothyroidism 35833476 E02 pt has been on armour thyroid from specialist provider. Anxiety 81836626 F41.9 stable on buspar 5mg bid Body mass index 30+ - obesity 947053426 Z68.34 pt is losing weight Long-term drug therapy 741058638 Z79.899 labs are UTD Health Concerns Section Related Observation LastModified by Organization Detai ls LastModified Time None Recorded Concern Status LastModified by Organization Details LastModified Time None Recorded Advance Directives Directive None Recorded Payers Insurance Date Sequence Insurance Name Policy Number Policy [place] Covered Member ID [place] Member ID Guarantor Name 04/04/2023 1 [place] [id number] Yanira Langston [id number] Yanira Langston Notes Date Note Type Note Provider Name and Address Organization Details Recorded Time 07/14/19 23 text/htm l Generic HPI TemplateReported bypatient.Location:R lower leg Quality:tightness Severity:pain rated 10/10 at worse and constant 3/10 Duration:constant Onset/Timing:since 2019 but has gotten worse in the past 3 months Context:old injury from surgery Aggravating factors:walking Alleviating factors:nothing she has done yet. Associated Symptoms:feeling of a ball in bottom of footNotes:When she had surgery on her R ankle in 2019 she got a nerve block that she never really healed from In old system there is an order for repeat thyroid labs. She did not get them done. HIWOT Lucas [address] [facility], [facility] [address], [place], [address], [facility] [employer] 08/01/2022 17:53:20 09/17/19 23 text/htm l Anxiety/DepressionReported bypatient.Quality:symptoms worse in the evening;symptoms worse during the day Severity:denies suicidal ideations; able to maintain relationships;interference with sleep;interference with work Duration:symptoms lasting over 2 weeks Onset/Timing:still present Context:major life stressors;trouble at work(stressful job) Modifying Factors:rx Associated Symptoms:denies homicidal ideations; no significant weight gain; no significant weight loss; no visual/auditory hallucinations; no delusions; no shortness of breathHypertensionReported bypatient.Duration:has noted for years Onset/Timing:better Alleviating Factors:medication Associated Symptoms:no shortness of breath; no fatigue; no palpitations; no decline in exercise capacity; no snoring Wellness HIWOT Lucas [address] [address], [place], [address], [employer] [facility] [employer] [facility] 10/06/2022 22:30:19 03/22/20 23 text/htm l Anxiety/DepressionReported bypatient.Quality:doesnt matter time of day Severity:denies suicidal ideations; able to maintain relationships;interference with sleep;interference with work Duration:symptoms lasting over 2 weeks Onset/Timing:still present Context:major life stressors;trouble at work(stressful job) Modifying Factors:rx Associated Symptoms:denies homicidal ideations; no significant weight gain; no significant weight loss; no visual/auditory hallucinations; no delusions; no shortness of breathHypertensionReported bypatient.Duration:has noted for years Onset/Timing:better Alleviating Factors:medication Associated Symptoms:no shortness of breath; no fatigue; no palpitations; no decline in exercise capacity; no snoring HIWOT Lucas [address] [address], [place], [address], [employer] 04/03/2023 14:41:02 OBGyn Episode No OBEpisode recorded.
--- OUTSIDE RECORDS SUMMARY | 2024-11-06 08:34 | XMS_ITS | Data Portability ---
Author Organization [facility] NOHEMIMonica Jeffers Address [address] [place] [address] Care Team Providers Care Staffing Mgr Name Role Phone JED BETTS Primary Care Provider Unavailab le Assessment No assessment recorded. Plan of Treatment Reminders Order Date Submit Date Provider Last Modified By Organization Details Last Modified Time Details Appointments ANY 15 2024 08:00A M HIWOT Lucas Not available Not available Not available Lab vitami n D, 25-hyd cass, total, serum 2024 025 [facility], [address], [place], [address], 08/02/2024 14:57:45 CMP, serum or plasma 2024 025 AMANDA [facility], [address], [place], [address], 07/30/2024 12:41:02 CBC w/ auto diff 2024 025 [facility], [address], [place], [address], 08/02/2024 14:58:03 vitami n B12 + folate , serum or blood 2024 025 [facility], [address], [place], [address], 08/02/2024 14:57:54 TSH + free T4, serum 2024 025 oseas [facility], [address], [place], [address], 08/02/2024 14:56:46 influe nza virus A + B + SARS-C oV-2 (COVID 19) Ag panel, rapid IA, upper respir atory specim en 2024 025 [email or web address] In-Office Order, Internal Use Only DO Not Attach Compendium DO Not Attach Compendium, Do Not Delete/merge, [id number] 06/12/2024 17:42:13 lipid panel, serum 2023 024 AMANDA [facility], [address], [place], [address], 02/01/2024 08:30:35 CMP, serum or plasma 2023 024 AMANDA [facility], [address], [place], [address], 02/01/2024 08:30:36 CBC w/ auto diff 2023 024 AMANDA [facility], [address], [place], [address], 02/01/2024 08:30:38 vitami n B12 + folate , serum or blood 2023 024 AMANDA [facility], [address], [place], [address], 02/01/2024 08:30:36 TSH + free T4, serum 2023 024 AMANDA [facility], [address], [place], [address], 02/01/2024 08:30:35 vitami n D, 25-hyd cass, total, serum 2023 024 AMANDA [facility], [address], [place], [address], 02/01/2024 08:30:39 HbA1c (hemog lobin A1c), blood 2023 024 CHUGIAK [facility], [address], [place], [address], 02/01/2024 08:30:37 insuli n, serum 2023 024 CHUGIAK [facility], [address], [place], [address], 02/01/2024 08:30:38 Referral None record ed. Procedures None record ed. Surgeries None record ed. Imaging None record ed. Medication Orders Zepbou nd 15 mg/0.5 mL subcut aneous pen inject or 2024 025 [facility]-[id number] [address] [place] [address] [facility], [address] [facility] , [place], [place], [id number], 10/25/2024 12:49:33 amoxic illin 875 mg-pot assium clavul anate 125 mg tablet 2024 025 [id number], [address] [place], [address], 07/25/2024 09:07:31 bimal ukast 10 mg tablet 2023 024 [facility], [address] [place], [address], 01/25/2024 10:36:24 Nurtec ODT 75 mg disint egrati ng tablet 2023 024 [facility], [address] [place], [address], 01/25/2024 10:36:23 Patient TargetsNo targets recorded. Patient Instructions Encounter Date Encounter Id Patient Instructions Last Modified By Organization Details Last Modified Time 07/25/2024 [id number] A healthy lifestyle: care instructions [email or web address] Not available 07/25/2024 09:30:54 Reason for Referral None Reported. Results Created Date Observation Date Name Description Value Unit Range Abnormal Flag Note LastModifiedBy Organization Detail LastModifiedTime 01/31/2002/01/2024 LIPID PANEL W/ CHOL/ HDL RATIO cholesterol, total 167 mg/dL 100-19 9 Not Available [facility] ([facility]) [address] [facility], [place], [address], 02/01/2024 08:30:35 01/31/20 24 02/01/2024 LIPID PANEL W/ CHOL/ HDL RATIO triglyceride s 111 mg/dL 0-149 Not Available [facility] ([facility]) [address] [place], [address], 02/01/2024 08:30:35 01/31/2002/01/2024 LIPID PANEL W/ CHOL/ HDL RATIO HDL cholesterol 50 mg/dL >39 Not Available [facility]) [address] [place], [address], 02/01/2024 08:30:35 01/31/20 24 02/01/2024 LIPID PANEL W/ CHOL/ HDL RATIO VLDL cholesterol mira 20 mg/dL 5-40 Not Available [facility] ([facility]) [address] [place], [address], 02/01/2024 08:30:35 01/31/20 24 02/01/2024 LIPID PANEL W/ CHOL/ HDL RATIO LDL chol calc ([facility]) 97 mg/dL 0-99 Not Available [facility] ([facility]) [address] [place], [address], 02/01/2024 08:30:35 01/31/20 24 02/01/2024 LIPID PANEL W/ CHOL/ HDL RATIO T. chol/HDL ratio 3.3 ratio 0.0-4. 4 T. Chol/ HDL Ratio Men Women 1/2 Avg.R isk 3.4 3.3 Avg.R isk 5.0 4.4 2X Avg.R isk 9.6 7.1 3X Avg.R isk 23.4 11.0 Not Available [facility] ([facility]) [address] [place], [address], 02/01/2024 08:30:35 01/31/20 24 02/01/2024 TSH+F REE T4 TSH 2.400 uIU/m L 0.450- 4.500 Not Available [facility] ([facility]) [address] [place], [address], 02/01/2024 08:30:35 01/31/20 24 02/01/2024 TSH+F REE T4 T4,free(dire ct) 1.49 NG/dL 0.82-1 .77 Not Available [facility] ([facility]) [address] [place], [address], 02/01/2024 08:30:35 01/31/20 24 02/01/2024 COMP. METAB OLIC PANEL (14) glucose 93 mg/dL 70-99 Not Available [facility] ([facility]) [address] [place], [address], 02/01/2024 08:30:36 01/31/20 24 02/01/2024 COMP. METAB OLIC PANEL (14) BUN 16 mg/dL 6-24 Not Available [facility] ([facility]) [address] [place], [address], 02/01/2024 08:30:36 01/31/20 24 02/01/2024 COMP. METAB OLIC PANEL (14) creatinine 1.27 mg/dL 0.57-1 .00 above high normal Not Available [facility] ([facility]) [address] [place], [address], 02/01/2024 08:30:36 01/31/20 24 02/01/2024 COMP. METAB OLIC PANEL (14) eGFR 53 mL/mi n/1.7 3 >59 below low normal Not Available [facility] ([facility]) [address] [facility], [place], [address], 02/01/2024 08:30:36 01/31/20 24 02/01/2024 COMP. METAB OLIC PANEL (14) BUN/creatini ne ratio 13 9-23 Not Available [facility] ([facility]) [address] [facility] [place], [address], 02/01/2024 08:30:36 01/31/20 24 02/01/2024 COMP. METAB OLIC PANEL (14) sodium 139 mmol/ L 134-14 4 Not Available [facility] ([facility]) [address] [facility], [place], [address], 02/01/2024 08:30:36 01/31/20 24 02/01/2024 COMP. METAB OLIC PANEL (14) potassium 4.6 mmol/ L 3.5-5. 2 Not Available [facility] ([facility]) [address] [facility] [place], [address], 02/01/2024 08:30:36 01/31/20 24 02/01/2024 COMP. METAB OLIC PANEL (14) chloride 104 mmol/ L 96-106 Not Available [facility] ([facility]) [address] [facility] [place], [address], 02/01/2024 08:30:36 01/31/20 24 02/01/2024 COMP. METAB OLIC PANEL (14) carbon dioxide, total 21 mmol/ L 20-29 Not Available [facility] ([facility]) [address] [facility] [place], [address], 02/01/2024 08:30:36 01/31/20 24 02/01/2024 COMP. METAB OLIC PANEL (14) calcium 9.4 mg/dL 8.7-10 .2 Not Available [facility] ([facility]) [address] [place], [address], 02/01/2024 08:30:36 01/31/20 24 02/01/2024 COMP. METAB OLIC PANEL (14) protein, total 6.6 g/dL 6.0-8. 5 Not Available [facility] ([facility]) [address] [place], [address], 02/01/2024 08:30:36 01/31/20 24 02/01/2024 COMP. METAB OLIC PANEL (14) albumin 4.4 g/dL 3.9-4. 9 Not Available [facility] ([facility]) [address] [place], [address], 02/01/2024 08:30:36 01/31/20 24 02/01/2024 COMP. METAB OLIC PANEL (14) globulin, total 2.2 g/dL 1.5-4. 5 Not Available [facility] ([facility]) [address] [place], [address], 02/01/2024 08:30:36 01/31/20 24 02/01/2024 COMP. METAB OLIC PANEL (14) bilirubin, total 1.0 mg/dL 0.0-1. 2 Not Available [facility] ([facility]) [address] [place], [address], 02/01/2024 08:30:36 01/31/20 24 02/01/2024 COMP. METAB OLIC PANEL (14) alkaline phosphatase 69 IU/L 44-121 Not Available [facility]) [address] [place], [address], 02/01/2024 08:30:36 01/31/20 24 02/01/2024 COMP. METAB OLIC PANEL (14) AST (SGOT) 18 IU/L 0-40 Not Available [facility] ([facility]) [address] [place], [address], 02/01/2024 08:30:36 01/31/20 24 02/01/2024 COMP. METAB OLIC PANEL (14) ALT (SGPT) 20 IU/L 0-32 Not Available [facility] ([facility]) [address] [facility], [place], [address], 02/01/2024 08:30:36 01/31/2002/01/2024 VITAM IN B12 AND FOLAT E vitamin B12 865 pg/mL 232-12 45 Not Available [facility] ([facility]) [address] [facility], [place], [address], 02/01/2024 08:30:36 01/31/2002/01/2024 VITAM IN B12 AND FOLAT E folate (folic acid), serum 19.2 NG/mL >3.0 A serum folat e gutierrez ntrat ion of less than 3.1 ng/mL is consi dered to repre sent clini mira defic iency . Not Available [facility] ([facility]) [address] [facility], [place], [address], 02/01/2024 08:30:36 01/31/2001/31/2024 HEMOG LOBIN A1C hemoglobin A1C 5.2 % 4.8-5. 6 Predi abete s: 5.7 - 6.4 Diabe stewart: >6.4 Glyce basia contr ol for adult s with diabe stewart: <7.0 Not Available [facility] ([facility]) [address] [facility], [place], [address], 02/01/2024 08:30:37 01/31/2002/01/2024 INSUL IN insulin 10.2 uIU/m L 2.6-24 .9 Not Available [facility] ([facility]) [address] [facility], [place], [address], 02/01/2024 08:30:38 01/31/2001/31/2024 CBC WITH DIFFE RENTI AL/PL ATELE T WBC 5.9 x10e3 /uL 3.4-10 .8 Not Available [facility] ([facility]) [address] [facility], [place], [address], 02/01/2024 08:30:38 01/31/20 24 01/31/2024 CBC WITH DIFFE RENTI AL/PL ATELE T RBC 4.68 x10e6 /uL 3.77-5 .28 Not Available [facility] ([facility]) [address] [facility], [place], [address], 02/01/2024 08:30:38 01/31/2001/31/2024 CBC WITH DIFFE RENTI AL/PL ATELE T hemoglobin 14.7 g/dL 11.1-1 5.9 Not Available [facility] ([facility]) [address] [facility], [place], [address], 02/01/2024 08:30:38 01/31/2001/31/2024 CBC WITH DIFFE RENTI AL/PL ATELE T hematocrit 44.5 % 34.0-4 6.6 Not Available [facility] ([facility]) [address] [facility], [place], [address], 02/01/2024 08:30:38 01/31/2001/31/2024 CBC WITH DIFFE RENTI AL/PL ATELE T MCV 95 fL 79-97 Not Available [facility] ([facility]) [address] [place], [address], 02/01/2024 08:30:38 01/31/2001/31/2024 CBC WITH DIFFE RENTI AL/PL ATELE T MCH 31.4 pg 26.6-3 3.0 Not Available [facility] ([facility]) [address] [place], [address], 02/01/2024 08:30:38 01/31/2001/31/2024 CBC WITH DIFFE RENTI AL/PL ATELE T MCHC 33.0 g/dL 31.5-3 5.7 Not Available [facility] ([facility]) [address] [facility], [place], [address], 02/01/2024 08:30:38 01/31/20 24 01/31/2024 CBC WITH DIFFE RENTI AL/PL ATELE T RDW 12.6 % 11.7-1 5.4 Not Available [facility] ([facility]) [address] [facility], [place], [address], 02/01/2024 08:30:38 01/31/2001/31/2024 CBC WITH DIFFE RENTI AL/PL ATELE T platelets 347 x10e3 /uL 150-45 0 Not Available [facility] ([facility]) [address] [facility], [place], [address], 02/01/2024 08:30:38 01/31/20 24 01/31/2024 CBC WITH DIFFE RENTI AL/PL ATELE T neutrophils 60 % notest ab. Not Available [facility] ([facility]) [address] [facility], [place], [address], 02/01/2024 08:30:38 01/31/20 24 01/31/2024 CBC WITH DIFFE RENTI AL/PL ATELE T lymphs 28 % notest ab. Not Available [facility] ([facility]) [address] [place], [address], 02/01/2024 08:30:38 01/31/20 24 01/31/2024 CBC WITH DIFFE RENTI AL/PL ATELE T monocytes 9 % notest ab. Not Available [facility] ([facility]) [address] [facility], [place], [address], 02/01/2024 08:30:38 01/31/20 24 01/31/2024 CBC WITH DIFFE RENTI AL/PL ATELE T eos 2 % notest ab. Not Available [facility] ([facility]) [address] [facility], [place], [address], 02/01/2024 08:30:38 01/31/20 24 01/31/2024 CBC WITH DIFFE RENTI AL/PL ATELE T basos 1 % notest ab. Not Available [facility] ([facility]) [address] [facility], [place], [address], 02/01/2024 08:30:38 01/31/20 24 01/31/2024 CBC WITH DIFFE RENTI AL/PL ATELE T neutrophils (absolute) 3.5 x10e3 /uL 1.4-7. 0 Not Available [facility] ([facility]) [address] [facility], [place], [address], 02/01/2024 08:30:38 01/31/20 24 01/31/2024 CBC WITH DIFFE RENTI AL/PL ATELE T lymphs (absolute) 1.7 x10e3 /uL 0.7-3. 1 Not Available [facility] ([facility]) [address] [facility], [place], [address], 02/01/2024 08:30:38 01/31/20 24 01/31/2024 CBC WITH DIFFE RENTI AL/PL ATELE T monocytes(ab solute) 0.5 x10e3 /uL 0.1-0. 9 Not Available [facility] ([facility]) [address] [place], [address], 02/01/2024 08:30:38 01/31/20 24 01/31/2024 CBC WITH DIFFE RENTI AL/PL ATELE T eos (absolute) 0.1 x10e3 /uL 0.0-0. 4 Not Available [facility] ([facility]) [address] [facility], [place], [address], 02/01/2024 08:30:38 01/31/20 24 01/31/2024 CBC WITH DIFFE RENTI AL/PL ATELE T baso (absolute) 0.1 x10e3 /uL 0.0-0. 2 Not Available [facility] ([facility]) [address] [facility], [place], [address], 02/01/2024 08:30:38 01/31/20 24 01/31/2024 CBC WITH DIFFE RENTI AL/PL ATELE T immature granulocytes 0 % notest ab. Not Available [facility] ([facility]) [address] [facility], [place], [address], 02/01/2024 08:30:38 01/31/20 24 01/31/2024 CBC WITH DIFFE RENTI AL/PL ATELE T immature grans (abs) 0.0 x10e3 /uL 0.0-0. 1 Not Available [facility] ([facility]) [address] [facility], [place], [address], 02/01/2024 08:30:38 01/31/20 24 02/01/2024 VITAM IN D, 25-HY DROXY vitamin D, 25-hydroxy 65.4 NG/mL 30.0-1 00.0 Vitam in D defic iency has been defin ed by the Insti tute of Medic ine and an Endoc rine Socie ty pract ice guide line as a level of serum 25-OH vitam in D less than 20 ng/mL (1,2) . The Endoc rine Socie ty went on to furth er defin e vitam in D insuf ficie ncy as a level betwe en 21 and 29 ng/mL (2). 1. IOM (Inst itute of Medic ine). 2010. Dieta ry refer ence yazmin es for calci um and D. Svitlana velasquez [place]: The [facility]io nal [facility] Press . 2. Victor M olson MF, Jolynn alvarado [place], Scot off-F errar i [place], et al. Evalu ation , treat ment, and preve ntion of vitam in D defic iency : an Endoc rine Socie ty clini mira pract ice guide line. JCEM. 2010; 96(7) :1911 -30. Not Available [facility] ([facility]) [address] [facility], [place], [address], 02/01/2024 08:30:39 05/30/19 25 05/30/2024 pap, IG + HR HPV HPV negati ve Not Available Not Available 17:17:53 06/12/19 25 06/12/2024 influ eyal virus A + B + SARS- CoV-2 (COVI D19) Ag panel , rapid IA, upper respi rator y speci men Flu A negati ve Not Available In-Office Order Internal Use Only DO Not Attach Compendium DO Not Attach Compendium, Do Not Delete/merge, [id number] 06/12/2024 17:42:02 06/12/19 25 06/12/2024 influ eyal virus A + B + SARS- CoV-2 (COVI D19) Ag panel , rapid IA, upper respi rator y speci men Flu B negati ve Not Available In-Office Order Internal Use Only DO Not Attach Compendium DO Not Attach Compendium, Do Not Delete/merge, [id number] 06/12/2024 17:42:02 06/12/19 25 06/12/2024 influ eyal virus A + B + SARS- CoV-2 (COVI D19) Ag panel , rapid IA, upper respi rator y speci men Rapid SARS CoV 2 Ag, QL IA, respiratory specimen negati ve Not Available In-Office Order Internal Use Only DO Not Attach Compendium DO Not Attach Compendium, Do Not Delete/merge, [id number] 06/12/2024 17:42:02 03/05/20 24 02/08/2024 US, kidne y No observ ation record ed. AMANDA [facility] [address], [place], [address], 03/08/2024 10:08:16 03/20/20 24 03/20/2024 CT, urogr am No observ ation record ed. AMANDA [facility] [address], [place], [address], 03/23/2024 10:10:54 05/21/19 25 05/21/2024 MAMMO , scree theresa, digit al, bilat eral No observ ation record ed. [email or web address] [facility] [address] [place], [address], 05/21/2024 18:03:18 07/04/19 25 05/21/2024 MAMMO , scree theresa, digit al, bilat eral No observ ation record ed. AMANDA [facility] [address] [place], [address], 07/05/2024 09:54:33 Result Notes None recorded. Problems Name Problem SNOMED Code Status Onset Date Resolution Date Notes Provider Name and Address Organization Details Recorded Time Long-term drug therapy Active 2023 HIWOT Lucas Attn: Maggie jones,[address] [place], [address], [place] [facility] 4 23:05:05 Body mass index 30+ - obesity 440573530 Active 2023 HIWOT Lucas Attn: Maggie jones,[address] [place], [address], [place] [facility] 4 23:05:06 Seasonal allergic rhinitis 679229150 Active 2023 HIWOT Lucas Attn: Maggie jones,[address] [place], [address], [place] [facility] 4 23:05:14 Migraine 69747324 Active 2023 HIWOT Lucas Attn: Maggie g,[address] [place], [address], [place] [facility] 4 23:05:15 Vitamin D deficiency 28143105 Active 2023 HIWOT Lucas Attn: Maggie jones,[address] [place], [address], [place] [facility] 23:05:25 Anxiety 15833169 Active 2023 HIWOT Lucas Attn: Maggie jones,[address] [facility], [place], [address], [facility] 4 23:05:27 Benign essential hypertension 2658818 Active 2023 HIWOT Lucas Attn: Maggie jones,[address] [facility], [place], [address], [facility] 4 23:05:39 Problem Notes None recorded. Procedures Surgical History Date Name Laterality Status Provider Name and Address Organization Details Recorded Time Appendectomy completed Anabel Meek [facility] 01/25/2024 11:58:17 Eye Surgery completed Anabel Meek [facility] 01/25/2024 11:58:57 Imaging Results None recorded. Procedure Notes None recorded. Medical Equipment None Reported. Allergies No known drug allergies Medications Name Sig Start Date Stop Date Status Note LastModified by Organization Details LastModified Time Prescriptio n - New active Not Available Not Available Not Available losartan 50 mg tablet TAKE 1 TABLET DAILY 01/24 completed Not Available Not Available Not Available carisoprodo l 350 mg tablet TAKE 1 TABLET BY MOUTH TWICE A DAY 01/24 completed Not Available Not Available Not Available glycopyrrol ate 1 mg tablet TAKE 1 TABLET BY MOUTH TWICE A DAY active Not Available Not Available No t Available amoxicillin 500 mg capsule TAKE 1 CAPSULE 3 TIMES A DAY active Not Available Not Available No t Available methocarbam ol 500 mg tablet TAKE 2 TABLETS BY MOUTH TWICE A DAY 07/25 completed Not Available Not Available Not Available buspirone 5 mg tablet TAKE 1 TABLET BY MOUTH TWICE A DAY 01/24 completed Not Available Not Available Not Available tizanidine 4 mg tablet TAKE 1 TABLET EVERY 8 HOURSAS NEEDED FOR MUSCLE SPASMS active Not Available Not Available No t Available valacyclovi r 1 gram tablet TAKE 2 TABLETS BY MOUTH EVERY 12 HOURS NEEDED FOR 1 DAY active Not Available Not Available No t Available meloxicam 15 mg tablet TAKE 1 TABLET BY MOUTH DAILY WITH BREAKFAST 01/24 completed Not Available Not Available Not Available prednisone 20 mg tablet TAKE 2 TABLETS BY MOUTH EVERY DAY FOR 5 DAYS 01/24 completed Not Available Not Available Not Available amoxicillin 500 mg tablet TAKE 1 TABLET BY MOUTH THREE TIMES A DAY 01/24 completed Not Available Not Available Not Available nortriptyli ne 25 mg capsule TAKE 2 CAPSULES BY MOUTH NIGHTLY. active Not Available Not Available No t Available baclofen 10 mg tablet PLEASE SEE ATTACHED FOR DETAILED DIRECTION S 01/24 completed Not Available Not Available Not Available buspirone 10 mg tablet TAKE 1 TABLET BY MOUTH EVERY DAY active Not Available Not Available No t Available progesteron e micronized 200 mg capsule Take 1 capsule by oral route for 90 days. active Not Available Not Available No t Available montelukast 10 mg tablet TAKE 1 TABLET BY MOUTH EVERY DAY active Not Available Not Available No t Available mupirocin 2 % topical ointment APPLY TO CORNERS OF MOUTH TWICE A DAY active Not Available Not Available No t Available ergocalcife rol (vitamin D2) 1,250 mcg (50,000 unit) capsule Take 1 capsule every week by oral route. 2024 active Not Available Not Available Not Avai lable ketoconazol e 2 % topical cream APPLY TO FOOT TWICE A DAY active Not Available Not Available No t Available losartan 100 mg tablet TAKE 1 TABLET BY MOUTH EVERY DAY 2024 active Not Available Not Available Not Avai lable progesteron e micronized 100 mg capsule TAKE 1-2 CAPSULES BY MOUTH 30 MINUTES BEFORE BED active Not Available Not Available No t Available amoxicillin 875 mg-holley m clavulanate 125 mg tablet TAKE 1 TABLET BY MOUTH EVERY 12 HOURS 07/25 completed Not Available Not Available Not Available duloxetine 20 mg capsule,del ayed release TAKE 1 CAPSULE BY MOUTH TWICE A DAY 01/24 completed Not Available Not Available Not Available duloxetine 30 mg capsule,del ayed release TAKE 1 CAPSULE BY MOUTH TWICE A DAY 01/24 completed Not Available Not Available Not Available testosteron e 50 mg/5 gram (1 %) transdermal gel APPLY CONTENTS OF 1 PACKET TO SKIN OF SHOULDER/ UPPER ARM/ABDOM EN ONCE DAILY IN THE MORNING active Not Available Not Available No t Available nebivolol 5 mg tablet TAKE 1 TABLET BY MOUTH EVERY DAY 2024 active Not Available Not Available Not Avai lable adapalene 0.1 %-benzoyl peroxide 2.5 % topical gel with pump APPLY A THIN LAYER TO AFFECTED AREA ON FACE AND/OR UPPER TRUNK AFTER WASHING ONCE DAILY NEEDED active Not Available Not Available No t Available [facility] mg disintegrat ing tablet Take by oral route for 30 days. active Not Available Not Available No t Available Ozempic 1 mg/dose (4 mg/3 mL) subcutaneou s pen injector Inject by subcutane ous route for 28 days. active Not Available Not Available No t Available Ozempic 2 mg/dose (8 mg/3 mL) subcutaneou s pen injector INJECT 2 MG EVERY WEEK BY SUBCUTANE OUS ROUTE DIRECTED. 07/14 completed Not Available Not Available Not Available Mounjaro 7.5 mg/0.5 mL subcutaneou s pen injector Inject 7.5 mg every week by subcutane ous route. 01/24 completed Not Available Not Available Not Available Mounjaro 5 mg/0.5 mL subcutaneou s pen injector INJECT 5 MG SUBCUTANE OUSLY WEEKLY 01/24 completed Not Available Not Available Not Available Mounjaro 2.5 mg/0.5 mL subcutaneou s pen injector INJECT 2.5 MG SUBCUTANE OUSLY WEEKLY 01/24 completed Not Available Not Available Not Available Ozempic 0.25 mg or 0.5 mg (2 mg/3 mL) subcutaneou s pen injector PLEASE SEE ATTACHED FOR DETAILED DIRECTION S 07/14 completed Not Available Not Available Not Available Zepbound 10 mg/0.5 mL subcutaneou s pen injector 06/22 completed Not Available Not Available Not Available Zepbound 2.5 mg/0.5 mL subcutaneou s pen injector Inject 2.5 mg every week by subcutane ous route as directed. 07/14 completed Not Available Not Available Not Available Zepbound 15 mg/0.5 mL subcutaneou s pen injector Inject 15 mg under the skin once weekly active Not Available Not Available No t Available Zepbound 12.5 mg/0.5 mL subcutaneou s pen injector Inject 12.5 mg every week by subcutane ous route. 10/04 completed Not Available Not Available Not Available Vitals Date Recorded Systolic blood pressure Diastolic blood pressure Provider Name and Address Organization Details Last Updated DateTime 07/25/2024 100 mm[Hg] 70 mm[Hg] HIWOT Lucas Attn: Accounting[address] [place], [address], [facility] 07/25/2024 09:32:08 Date Recorded Body height Body mass index (BMI) Body weight Respiratory rate Oxygen saturation Oxygen saturation in Arterial blood by Pulse oximetry Heart rate Systolic blood pressure Diastolic blood pressure Provider Name and Address Organization Details Last Updated DateTime 5 177.8 cm 31.1 kg/m2 28547.5 4 g 18 /min 97 % 97 % 89 /min 108 mm[Hg] 82 mm[Hg] Sacha Salas MA [facility] 5 09:12:44 Date Recorded Systolic blood pressure Diastolic blood pressure Provider Name and Address Organization Details Last Updated DateTime 01/25/2024 110 mm[Hg] 80 mm[Hg] HIWOT Lucas Attn: Accounting[address] [place], [address], [facility] 01/25/2024 10:31:52 Date Recorded Body height Body mass index (BMI) Body weight Respiratory rate Oxygen saturation Oxygen saturation in Arterial blood by Pulse oximetry Heart rate Systolic blood pressure Diastolic blood pressure Provider Name and Address Organization Details Last Updated DateTime 4 177.8 cm 32.9 kg/m2 444819. 94 g 18 /min 99 % 99 % 89 /min 138 mm[Hg] 82 mm[Hg] Anabel Meek MA [facility] 4 10:10:38 Social History Question Answer Notes LastModified by Organizat ion Details LastModified Time Tobacco Smoking Status Never Smoker Anabel Meek MA null, [facility] 01/25/2024 13:00:00 Do You Have An Advance Directive? No Information n ot available 07/25/2024 Are You Blind Or Do You Have Difficulty Seeing? No Information n ot available 07/25/2024 What Is Your Level Of Caffeine Consumption? Moderate Information not available 07/25/2024 In The 14 Days Before Symptom Onset, Have You Had Close Contact With A Laboratory-confirm ed COVID-19 While That Case Was Ill? No Information n ot available 07/25/2024 In The 14 Days Before Symptom Onset, Have You Had Close Contact With A Person Who Is Under Investigation For COVID-19 While That Person Was Ill? No Information not available 07/25/2024 Have You Been To An Area Known To Be High Risk For COVID-19? No Information not available 07/25/2024 Are You Deaf Or Do You Have Serious Difficulty Hearing? No Information not available 07/25/2024 What Type Of Diet Are You Following? REGULAR Information n ot available 07/25/2024 Are There Any Guns Present In Your Home? No Information not available 07/25/2024 What Was The Date Of Your Most Recent Tobacco Screening? 07/25/2024 Information not available 07/25/2024 Do You Use Your Seat Belt Or Car Seat Routinely? Yes Information not available 07/25/2024 Do You Have Smoke And Carbon Monoxide Detectors In Your Home? Yes Information not available 07/25/2024 Do You Use Sunscreen Routinely? Yes Information not available 07/25/2024 Has Tobacco Cessation Counseling Been Provided? No Information not available 07/25/2024 Sex: Female Functional Status Question Answer Note LastModified by Organizat ion Details LastModified Time Do you use any illicit or recreational drugs? No Information not available 07/25/2024 Do you or have you ever used any other forms of tobacco or nicotine? No Information not available 07/25/2024 What is your level of alcohol consumption? Occasional 1 month, 2 drinks, social occassions only crevisma Information not available 01/25/2024 Are you currently employed? Yes Information not available 07/25/2024 Are you able to care for yourself? Yes Information not available 07/25/2024 What is your exercise level? Occasional Information not available 07/25/2024 Mental Status None recorded. Family History Relationship Description Onset Age of this Age Resolved Age Notes LastModified by Organization Details LastModified Time Father Alcoholism crevisma Not availab le 01/25/2024 12:50:06 Father Hypertensive disorder crevisma Not available 2023 12:52:20 Father Pulmonary emphysema crevisma Not available 2023 12:56:07 Father Malignant neoplasm of prostate crevisma Not available 2023 12:56:25 Mother Family history of breast cancer crevisma Not available 2023 12:50:43 Mother Diabetes mellitus crevisma Not available 2023 12:51:07 Mother Disorder of thyroid gland crevisma Not available 2023 12:51:23 Mother Hypertensive disorder crevisma Not available 2023 12:52:05 Mother Kidney disease crevisma Not available 2023 12:52:52 Mother Osteoporosis crevisma Not avail able 01/25/2024 12:53:19 Medical History Condition Response Have you had a mammogram in the last yea r? Y Have you had a colonoscopy in the last 1 0 years? Y Gynecological History Statement/Question Response Menses Monthly N Current Control Method IUD Obstetrics History GPAL:G 2 P 2 0 4 2 Type Value Full Term 2 Induced 0 Spontaneous 3 Premature 0 Living 2 Ectopics 1 Total 2 Immunizations Vaccine Type Date Status Note Provider Nam e and Address Organization Details Recorded Time COVID-19, mRNA, LNP-S, PF, 30 mcg/0.3 mL dose 08/12/2020 completed YOSELIN [place], [place] - [facility] 02/17/2024 17:09:35 COVID-19, mRNA, LNP-S, PF, 30 mcg/0.3 mL dose 09/03/2020 completed YOSELIN [place], [place] - [facility] 02/17/2024 17:09:35 Influenza, split virus, quadrivalent, PF 03/12/2021 YOSELIN [place], [place] - [facility] 02/17/2024 17:09:35 Past Encounters Encounter ID Performer Location Encounter Start Date Encounter Closed Date Diagnosis/Indication Diagnosis SNOMED-CT Code Diagnosis ICD10 Code Diagnosis Note [id number] Markell Pratt MD [facility] [place] [address] [place] [place] [address] 01/25/2024 09:59:48 01/25/2024 10:54:30 Long-term drug therapy 451949878 Z79.899 cmp, cbc and b12, folate and thyroid labs are due Benign ess ential hypertension 1031268 I10 Stable on losartan 100 mg daily and nebivolol 5 mg daily Anxiety 58593318 F41.9 Stable on BuSpar 10 mg twice daily Vitamin D deficiency 347 19298 E55.9 Check vitamin-D lab per patient request Body mass index 30+ - obesity 262996226 Z68.32 Screening insulin level ordered. BMI is 32.9 Migraine 70343098 G43.90 9 Refill Nurtec ODT 75 mg as directed for migraine breakthrou gh Seasonal a llergic rhinitis 642280867 J30.2 Refill Singulair 10 mg daily Cholesterol screening 27 7688202 Z13.220 Fasting lipid panel ordered Diabetes m ellitus screening 441885746 Z13.1 Annual diabetes screening ordered Adult [facility] th examination 640565613 Z00.01 Annual wellness exam complete [id number] Markell Pratt MD [facility] [place] [address] [place] [address] 06/12/2024 17:00:15 06/12/2024 17:51:40 Acute sinusitis 21264997 J01.90 Nasal congestion 8982388 0 R09.81 [id number] Markell Pratt MD [facility] [place] [address] [place] [address] 07/25/2024 08:59:35 07/25/2024 10:09:29 Body mass index 30+ - obesity 273408143 Z68.31 Increased his Zepbound 15 mg weekly dosing Obesity 420125638 E66.9 Continue healthy diet modificati ons and exercise Benign ess ential hypertension 5884738 I10 Stable on losartan 100 mg daily and decrease to 2.5mg daily. Anxiety 33605571 F41.9 Stable on BuSpar 10 mg twice daily Vitamin D deficiency 347 51356 E55.9 Check vitamin-D lab per patient request Migraine 53363489 G43.90 9 Refill Nurtec ODT 75 mg as directed for migraine breakthrou gh Seasonal a llergic rhinitis 372052029 J30.2 PRN Singulair 10 mg daily Long-term drug therapy 610181647 Z79.899 cmp, cbc and b12, folate and thyroid labs are due Serum crea tinine above reference range 430827121 R79.89 Creatinine had gone up to 1.27. This may be related to underlying hypertensi on, renal artery ultrasound was completed and normal and CT urogram was also completed. We will repeat a metabolic panel and see if the creatinine has stabilized or if it increase we will look at getting her to Nephrology . Health Concerns Section Related Observation LastModified by Organization Detai ls LastModified Time None Recorded Concern Status LastModified by Organization Details LastModified Time None Recorded Advance Directives Directive N: Payers Insurance Date Sequence Insurance Name Policy Number Policy [place] Covered Member ID [place] Member ID Guarantor Name 08/03/2024 1 [facility] (O) [id number] 2 Yanira Langston [id number] Yanira Langston Notes Date Note Type Note Provider Name and Address Organization Details Recorded Time 01/25/2024 text/html Anxiety/Depressi onR eported bypatient.Notes:Corina lang is taking BuSpar 10 mg twice daily for management of anxiety. She does report feeling stable.HeadacheRepo rted bypatient.Notes:Corina lang takes Nurtec as needed for migraine breakthrough and takes nortriptyline 50 mg q.h.s..Hypertension Reported bypatient.Notes:Corina lang is taking losartan 100 mg daily and nebivolol 5 mg daily for blood pressure management. HIWOT Lucas Attn: [address]ing[address] [place], [address], [place] [facility] 02/05/2024 23:06:25 07/25/2024 text/html Anxiety/Depressi onR eported bypatient.Notes:Corina lang is taking BuSpar 10 mg twice daily for management of anxiety. She does report feeling stable.HeadacheRepo rted bypatient.Notes:Corina lang takes Nurtec as needed for migraine breakthrough and takes nortriptyline 50 mg q.h.s..Hypertension Reported bypatient.Notes:Corina lang is taking losartan 100 mg daily and nebivolol 5 mg daily for blood pressure management. Patient has had a mildly elevated creatinine in the past that has been increasing. We have completed a renal ultrasound which was stable. HIWOT Lucas Attn: Accounting[address] [place], [address], [facility] 08/02/2024 17:24:22 OBGyn Episode No OBEpisode recorded.
--- OUTSIDE RECORDS SUMMARY | 2024-11-06 08:34 | XMS_ITS | Clinical Summary ---
Author Organization [facility] Address [facility] [place] [address] Care Team Providers Care Scrape Gatherer Name Role Phone Sandra Milton Primary Care Provider [phone] Allergies No known active allergies Medications gabapentin 600 MG tablet Take 600 mg by mouth 3 (three) times daily. Active losartan 50 MG tablet Take 50 mg by mouth daily. Active montelukast 10 MG tablet Take 10 mg by mouth nightly at bedtime. Active cetirizine 10 MG tablet Take 10 mg by mouth daily. Active ODACTRA 12 SQ-HDM SL Tab Place 12 mg under the tongue nightly at bedtime. Active Family History Medical History Relation Comments Emphysema Father Hypertension Father Cancer Mother Diabetes Mother Heart Disease Mother Hypertension Mother Relation Status Comments Father Mother Social History Tobacco Use Types Packs/Day Years Used Date Smoking Tobacco: Never Assessed Comments Unknown Sex and Gender Information Value Date Recorded Sex Assigned at Not on file Legal Sex Female 9:11 PM CDT Gender Identity Not on file Sexual Orientation Not on file Last Filed Vital Signs Vital Sign Reading Time Taken Comments Blood Pressure 137/96 10/10/2020 10:14 PM CDT Pulse 92 10/10/2020 9:00 PM CDT Temperature 36.6 C (97.9 F) 10/10/2020 7:50 PM CDT oral Respiratory Rate 18 10/10/2020 9:00 PM CDT Oxygen Saturation 97% 10/10/2020 10:14 PM CDT Inhaled Oxygen Concentration - - Weight 102.1 kg (225 lb) 10/10/2020 7:50 PM CDT Height 177.8 cm (5' 10) 10/10/2020 7:50 PM CDT Body Mass Index 32.28 10/10/2020 7:50 PM CDT Plan of Treatment Health Maintenance Due Date Last Done Comments Cervical Cancer Screening Pa p Smear (Age 30 to 64) Every 3 Years 1977 Colorectal Cancer Screening Colonoscopy (10 Years) 1977 Annual Physical 02/14/1980 Hepatitis C 1995 DTaP, Tdap and Td Vaccines ( 1 - Tdap) 02/14/1996 Hepatitis B Vaccines (1 of 3 - 19+ 3-dose series) 02/14/1996 Cervical Cancer Screening Pa p with HPV Testing (Age 30 to 64) Every 5 Years 2007 Cervical Cancer Screening wi th HPV 2007 Mammogram Screening 2017 COVID-19 Vaccine (2023-2 5 season) 2024 09/03/2020, 08/12/2020 Meningococcal B Vaccine Aged Out No l onger eligible based on patient's age to complete this topic Meningococcal Vaccine Aged Out No kev finn eligible based on patient's age to complete this topic Pneumococcal Vaccine: Pediatrics (0 to 5 Years) and At-Risk Patients (6 to 49 Years) Aged Out No longer eligible b ased on patient's age to complete this topic RSV Immunizations Under 20 Months Aged Out No longer eligible b ased on patient's age to complete this topic Insurance [facility] Care Teams Scrape Gatherer Relationship Specialty Start Date End Date Sandra Milton PA PCP - General PHYSICIAN CERTIFIED OPHTHALMIC SURGICAL ASSISTANT 10/10/20
--- OUTSIDE RECORDS SUMMARY | 2024-11-06 08:34 | XMS_ITS | Clinical Summary ---
Author Organization [facility] Address [address] [place] [address] Care Team Providers Care Emergency Services Director Name Role Phone Unavailable Primary Care Provider Unavailabl e Source Comments [facility],non-owned Affiliates and Associated Physician Practices is amultiple site organization consisting of ambulatory clinics and hospital sitesin [place], [place], [place] and [place]. This disclosure is being madepursuant to the Care Everywhere program and may not contain all information available regarding this patient. Last updated 18.[facility] Placed Allergies No known active allergies Family History Medical History Relation Name Comments Cancer - Breast Mother Relation Name Status Comments Mother Social History Tobacco Use Types Packs/Day Years Used Date Smoking Tobacco: Never Alcohol Use Standard Drinks/Week Comments Yes 0 (1 standard drink = 0.6 oz pur e alcohol) social Comments Unknown Sex and Gender Information Value Date Recorded Sex Assigned at Not on file Legal Sex Female 12:39 PM [employer] Gender Identity Not on file Sexual Orientation Not on file Last Filed Vital Signs Vital Sign Reading Time Taken Comments Blood Pressure 120/82 03/01/2011 12:21 PM CDT Pulse - - Temperature - - Respiratory Rate - - Oxygen Saturation - - Inhaled Oxygen Concentration - - Weight 92.1 kg (203 lb) 03/01/2011 12:21 PM CDT Height 175.3 cm (5' 9) 03/01/2011 12:21 PM CDT Body Mass Index 29.98 03/01/2011 12:21 PM CDT Plan of Treatment Health Maintenance Due Date Last Done Comments COLOGUARD (AGES 45-75) - COL ON CA SCREENING 1977 COLON MONITORING 1977 COLONOSCOPY - COLON CA SCREENING 1977 CT COLONOGRAPHY - COLON CA SCREENING 1977 Colorectal Cancer Screening 1977 FIT - COLON CA SCREENING 1977 FLEX SIG - COLON CA SCREENING 1977 LIPID TESTING 1977 MAMMOGRAM 1977 HIV SCREENING 02/14/1992 HEPATITIS C SCREENING 02/09/1995 DTAP/TDAP/TD VACCINES (1 - Tdap) 02/14/1996 HEPATITIS B VACCINE (1 of 3 - 19+ 3-dose series) 02/14/1996 COVID-19 VACCINE (1 - 2023-2 5 season) 2024 DEPRESSION SCREENING 05/09/2024 INFLUENZA VACCINE (Season Ended) 2025 ZOSTER VACCINE (1 of 2) 2027 HIB VACCINE Aged Out No longer eligi ble based on patient's age to complete this topic HPV VACCINE Aged Out No longer eligi ble based on patient's age to complete this topic MENINGOCOCCAL (Group B) VACC INE SHARED DECISION-MAKING Aged Out No longer eligibl e based on patient's age to complete this topic MENINGOCOCCAL GROUPS A/C/Y/W VACCINE Aged Out No longer eligible b ased on patient's age to complete this topic PNEUMOCOCCAL VACCINE Aged Out No long er eligible based on patient's age to complete this topic Insurance [facility] [employer]
--- OUTSIDE RECORDS SUMMARY | 2024-11-06 08:34 | XMS_ITS | Clinical Summary ---
Author Organization [facility] Address [address] Attn: Epic Prelude ADT [place] [address] Care Team Providers Care Auto Parts Manager Name Role Phone Unavailable Primary Care Provider Unavailabl e Medications tirzepatide, weight loss, (Zepbound) 10 mg/0.5 mL Pen Injector Inject 10 mg (0.5 mL) under the skin every 7 days. 2 mL 1 04/03/2024 7:08 PM DENTAL HYGIENIST MOBILE COORDINATOR 4 Active tirzepatide, weight loss, (Zepbound) 12.5 mg/0.5 mL Pen Injector Inject 0.5 mL by subcutaneous injection every 7 days. 2 mL 1 06/23/2024 3:07 PM DENTAL HYGIENIST MOBILE COORDINATOR 5 Active tirzepatide, weight loss, (Zepbound) 15 mg/0.5 mL Pen Injector Inject 15 mg under the skin once weekly 2 mL 4 10/24/2024 6:20 PM CDT 5 Active ergocalciferol (VITAMIN D2) 50,000 unit capsule Take 1 Capsule (50,000 Units) by mouth every 7 days. 12 Capsule 10/05/2024 6:14 PM CDT 5 Active Encounters Date Type Department Care Team Description 10/09/2024 External Device Data ST[facility] ABSTRACTION Provider, Abstract from Last 3 Months Social History Tobacco Use Types Packs/Day Years Used Date Smoking Tobacco: Never Assessed Comments Unknown Sex and Gender Information Value Date Recorded Sex Assigned at Not on file Legal Sex Female 11:35 PM CDT Gender Identity Not on file Sexual Orientation Not on file Plan of Treatment Health Maintenance Due Date Last Done Comments DTAP/TDAP/TD VACCINES (1 - Tdap) 02/14/1996 HEPATITIS B VACCINES (1 of 3 - 19+ 3-dose series) 12/1995 HPV/Cotest (21-29) 1998 CERVICAL CANCER SCREENING 2007 HPV/Cotest (30-65) 2007 PAP SMEAR 2007 BREAST CANCER SCREENING 2017 COLORECTAL SCREENING 2022 Colorectal Cancer Screening 2022 FIT-DNA Q 3 years 2022 FIT/FOBT Q 1 year 2022 Flex Sig/CT Colonography Q 5 years 2022 INFLUENZA VACCINE (#1) 2023 Insurance RX [facility] [employer]
[2024-11-06 10:12] LABS: Rheumatoid Factor. < 12.0 IU/ML (<12)
[2024-11-07 07:04] LABS: DNA (ds) Antibody. <1 IU/mL; SS-A <1.0 NEG AI (<1.0 NEG); SS-B <1.0 NEG AI (<1.0 NEG)
[2024-11-08 13:33] LABS: Anti Nuclear Antibody Titer 1:80 titer
[2024-11-08 15:08] LABS: Anti Glomerular Basement Memb <1.0 AI
== END 2024-11-06 08:15 | disposition home or self-care (01) ==
LOC: ANHLAB 08:31
PROVIDERS: PCP Physician Assistant; Visit Provider Internal Medicine Nephrology
DX: R76.0 Raised antibody titer (principal)
CPT/HCPCS: 36415; 82595; 83520; 85652; 86036; 86038; 86225; 86235; 86430

== ENCOUNTER 2024-11-12 15:55 | Outpatient (CLI) | payer BC, SELFPAY ==
--- NOTE | ~2024-11-12 | US_ITS ---
EXAM: RENAL ULTRASOUND HISTORY: R94.4 - Abnormal results of kidney function studies COMPARISON: 02/08/2024. Reference is also made to a CT examination of the abdomen and pelvis dated 03/20/2024 FINDINGS: RIGHT KIDNEY: 11.9 x 4.2 x 5.7 cm. A 5 mm focus of increased density is identified within the interpolar region of the right kidney, an interval change. The remainder of the parenchyma of the right kidney is otherwise unremarkable in echogenicity. No hydronephrosis or additional renal calculi. LEFT KIDNEY: 11.6 x 6.5 x 5.9 cm No hydronephrosis or renal calculi. The parenchyma of the left kidney is unremarkable in echogenicity. BLADDER: Distended. Despite prolonged interrogation, neither ureteral jet was visualized. IMPRESSION: No hydronephrosis or obstructing renal calculi. Nonobstructing 5 mm calculus within the interpolar region of the right kidney, an interval change fro m prior. Reviewed, dictated and finalized at location A. IMPRESSION: No hydronephrosis or obstructing renal calculi. Nonobstructing 5 mm calculus within the interpolar region of the right kidney, an interval change from prior.
== END 2024-11-12 15:56 | disposition home or self-care (01) ==
LOC: MICIMG 15:56
PROVIDERS: PCP Physician Assistant; Visit Provider Internal Medicine Nephrology
DX: R94.4 Abnormal results of kidney function studies (principal); N20.0 Calculus of kidney
CPT/HCPCS: 76775

== ENCOUNTER 2024-11-13 07:21 | Outpatient (CLI) | payer BC, SELFPAY ==
--- OUTSIDE RECORDS SUMMARY | 2024-11-13 07:43 | XMS_ITS | Clinical Summary ---
Author Organization [facility] Address [address] [facility] Attn: Epic Prelude ADT JONATHONADENIKE [place]HA[place] [address] Care Team Providers Care Solar Electric Installer Name Role Phone Unavailable Primary Care Provider Unavailabl e Medications tirzepatide, weight loss, (Zepbound) 10 mg/0.5 mL Pen Injector Inject 10 mg (0.5 mL) under the skin every 7 days. 2 mL 1 04/03/2024 7:08 PM METER READERS SUPERVISOR 4 Active tirzepatide, weight loss, (Zepbound) 12.5 mg/0.5 mL Pen Injector Inject 0.5 mL by subcutaneous injection every 7 days. 2 mL 1 06/23/2024 3:07 PM METER READERS SUPERVISOR 5 Active tirzepatide, weight loss, (Zepbound) 15 [...] Q 5 years 2022 INFLUENZA VACCINE (#1) 2024 Insurance RX [facility] [employer]
--- OUTSIDE RECORDS SUMMARY | 2024-11-13 07:43 | XMS_ITS | Data Portability ---
Author Organization [facility], Main Office Address [address] [place] [address] Assessment No assessment recorded. Plan of Treatment Reminders Order Date Submit Date Provider Last Modified By Organization Details Last Modified Time Details Appointments None recorded. Lab TSH + free T4, serum 2022 023 [employer] [facility], [address], [address], [place], [address], 3 19:58:35 CMP, serum or plasma 2022 023 [employer] [facility], [address], [address], [place], [address], 3 19:58:38 CBC w/ auto diff 2022 023 [employer] [facility], [address], [place], [address], 3 19:58:39 lipid panel, serum 2022 023 [employer] [facility], [address], [place], [address], 3 19:58:37 HbA1c (hemoglobin A1c), blood 2022 023 [employer] [facility], [address], [place], [address], 3 19:58:39 insulin, serum 2022 023 [employer] [facility], [address], [place], [address], 3 19:58:40 Referral None recorded. Procedures None recorded. Surgeries septoplasty (SURG) 2022 022 [email or web address] [id number] Not available 3 09:19:35 Imaging US, duplex, venous, lower extremity, unilateral [address] [facility] (Imaging), [address], [place], [address], 3 17:50:33 Medication Orders Nurtec ODT 75 mg disintegrat ing tablet 2022 023 [facility]/Pharmacy #[id number], [address] [place], [address], 3 13:13:43 Mounjaro 2.5 mg/0.5 mL subcutaneou s pen injector [email or web address] [facility], [address] [address], [place], [address], 3 12:31:55 Soma 350 mg tablet 2022 023 [email or web address] 4 [facility]/Pharmacy #[id number], [address] [place], [address], 3 12:29:41 Patient TargetsNo targets recorded. Patient InstructionsNo instructions recorded. Reason for Referral None Reported. Results Created Date Observation Date Name Description Value Unit Range Abnormal Flag Note LastModifiedBy Organization Detail LastModifiedTime 10/27/19 22 10/27/2021 VITAM IN B12/F OLATE , SERUM PANEL vitamin B12 941 pg/mL 200-11 00 normal Not Available [facility] [address] , [place], [address], 10/27/2021 03:14:01 10/27/19 22 10/27/2021 VITAM IN B12/F OLATE , SERUM PANEL folate, serum 15.7 NG/mL normal Refer ence Range Low: <3.4 Borde rline : 3.4-5 .4 Hilda l: >5.4 Not Available [address], [address], 10/27/2021 03:14:01 10/27/19 22 10/27/2021 TSH+F REE T4 TSH 1.49 mIU/L normal Refer ence Range > or = 20 Years 0.40- 4.50 Pregn brina Range s First trime ster 0.26- 2.66 Secon d trime ster 0.55- 2.73 Third trime ster 0.43- 2.91 Not Available [address], [address], 10/27/2021 03:14:00 10/27/19 22 10/27/2021 TSH+F REE T4 T4, free 1.1 NG/dL 0.8-1. 8 normal Not Available [address], [address], 10/27/2021 03:14:00 10/27/19 22 10/27/2021 IRON, TIBC AND JAMAL TIN PANEL iron, total 118 mcg/d L 40-190 normal Not Available [address], [address], 10/27/2021 03:13:59 10/27/19 22 10/27/2021 IRON, TIBC AND JAMAL TIN PANEL iron binding capacity 320 mcg/d L_(ca lc) 250-45 0 normal Not Available [address], [address], 10/27/2021 03:13:59 10/27/19 22 10/27/2021 IRON, TIBC AND JAMAL TIN PANEL % saturation 37 %_(ca lc) 16-45 normal Not Available [address], [address], 10/27/2021 03:13:59 10/27/19 22 10/27/2021 IRON, TIBC AND JAMAL TIN PANEL ferritin 24 NG/mL 16-232 normal Not Available [address], [address], 10/27/2021 03:13:59 09/25/19 23 09/25/2022 TSH+F REE T4 TSH 3.27 mIU/L normal Refer ence Range > or = 20 Years 0.40- 4.50 Pregn brina Range s First trime ster 0.26- 2.66 Secon d trime ster 0.55- 2.73 Third trime ster 0.43- 2.91 Not Available [address], [address], 09/25/2022 19:58:35 09/25/19 23 09/25/2022 TSH+F REE T4 T4, free 1.2 NG/dL 0.8-1. 8 normal Not Available [address], [address], 09/25/2022 19:58:35 09/25/19 23 09/25/2022 LIPID PANEL WITH RATIO S cholesterol, total 172 mg/dL <200 normal Not Available [address], [address], 09/25/2022 19:58:37 09/25/19 23 09/25/2022 LIPID PANEL WITH RATIO S HDL cholesterol 50 mg/dL > or = 50 normal Not Available [address], [address], 09/25/2022 19:58:37 09/25/19 23 09/25/2022 LIPID PANEL WITH RATIO S triglyceride s 165 mg/dL <150 high Not Available [address], [address], 09/25/2022 19:58:37 09/25/19 23 09/25/2022 LIPID PANEL [...] 310(1 9): 2061- 2068 (http ://ed ucati on.Wire [employer]. com/f aq/FA Q164) Not Available [facility] [address] [place], [address], 09/25/2022 19:58:37 09/25/1909/25/2022 LIPID PANEL WITH RATIO S chol/HDLC ratio 3.4 (calc ) <5.0 normal Not Available [facility] [address] [place], [address], 09/25/2022 19:58:37 09/25/1909/25/2022 LIPID PANEL WITH RATIO S LDL/HDL ratio 1.9 (calc ) Below avera ge Risk: <2.34 [place] ge Risk: 2.35- 4.12 Moder ate Risk: 4.13- 5.56 High Risk: >5.57 Not Available [facility] [address] [place], [address], 09/25/2022 19:58:37 09/25/1909/25/2022 LIPID PANEL WITH RATIO S non HDL cholesterol 122 mg/dL _(mira c) <130 normal For patie nts with diabe stewart plus 1 major ASCVD risk facto r, treat ing to a non-H DL-C goal of <100 mg/dL (LDL- C of <70 mg/dL ) is consi маринаd a mai avalos optio n. Not Available [facility] [address] [place], [address], 09/25/2022 19:58:37 09/25/19 23 09/25/2022 COMPR EHENS EDILBERTO METAB OLIC PANEL glucose 94 mg/dL 65-99 normal Fasti ng refer ence inter itzel Not Available [facility] [address] [place], [address], 09/25/2022 19:58:38 09/25/19 23 09/25/2022 COMPR EHENS EDILBERTO METAB OLIC PANEL urea nitrogen (BUN) 14 mg/dL 7-25 normal Not Available [place] [address] [place], [address], 09/25/2022 19:58:38 09/25/19 23 09/25/2022 COMPR EHENS EDILBERTO METAB OLIC PANEL creatinine 1.28 mg/dL 0.50-0 .99 high Not Available [address] [place] [address] [place], [address], 09/25/2022 19:58:38 09/25/19 23 09/25/2022 COMPR EHENS [...] kdoqi /gfr% 5Fcal culat or Not Available [facility] [place] [address] [address] [place], [address], 09/25/2022 19:58:38 09/25/19 23 09/25/2022 COMPR EHENS EDILBERTO METAB OLIC PANEL BUN/creatini ne ratio 11 (calc ) 6-22 normal Not Available [address] [place] [address] [place], [address], 09/25/2022 19:58:38 09/25/19 23 09/25/2022 COMPR EHENS EDILBERTO METAB OLIC PANEL sodium 139 mmol/ L 135-14 6 normal Not Available [address], [address], 09/25/2022 19:58:38 09/25/19 23 09/25/2022 COMPR EHENS EDILBERTO METAB OLIC PANEL potassium 4.1 mmol/ L 3.5-5. 3 normal Not Available [address], [address], 09/25/2022 19:58:38 09/25/19 23 09/25/2022 COMPR EHENS EDILBERTO METAB OLIC PANEL chloride 106 mmol/ L 98-110 normal Not Available [address], [address], 09/25/2022 19:58:38 09/25/19 23 09/25/2022 COMPR EHENS EDILBERTO METAB OLIC PANEL carbon dioxide 26 mmol/ L 20-32 normal Not Available [address], [address], 09/25/2022 19:58:38 09/25/19 23 09/25/2022 COMPR EHENS EDILBERTO METAB OLIC PANEL calcium 8.9 mg/dL 8.6-10 .2 normal Not Available [address], [address], 09/25/2022 19:58:38 09/25/19 23 09/25/2022 COMPR EHENS EDILBERTO METAB OLIC PANEL protein, total 6.3 g/dL 6.1-8. 1 normal Not Available [address], [address], 09/25/2022 19:58:38 09/25/19 23 09/25/2022 COMPR EHENS EDILBERTO METAB OLIC PANEL albumin 4.0 g/dL 3.6-5. 1 normal Not Available [address] [place] [address] [place], [address], 09/25/2022 19:58:38 09/25/19 23 09/25/2022 COMPR EHENS EDILBERTO METAB OLIC PANEL globulin 2.3 g/dL_ (calc ) 1.9-3. 7 normal Not Available [address], [address], 09/25/2022 19:58:38 09/25/19 23 09/25/2022 COMPR EHENS EDILBERTO METAB OLIC PANEL albumin/glob ulin ratio 1.7 (calc ) 1.0-2. 5 normal Not Available [address], [address], 09/25/2022 19:58:38 09/25/19 23 09/25/2022 COMPR EHENS EDILBERTO METAB OLIC PANEL bilirubin, total 1.2 mg/dL 0.2-1. 2 normal Not Available [address] [place] [address] [place], [address], 09/25/2022 19:58:38 09/25/19 23 09/25/2022 COMPR EHENS EDILBERTO METAB OLIC PANEL alkaline phosphatase 58 U/L 31-125 normal Not Available [place] [address] [place], [address], 09/25/2022 19:58:38 09/25/19 23 09/25/2022 COMPR EHENS EDILBERTO METAB OLIC PANEL AST 14 U/L 10-35 normal Not Available [address], [address], 09/25/2022 19:58:38 09/25/19 23 09/25/2022 COMPR EHENS EDILBERTO METAB OLIC PANEL ALT 14 U/L 6-29 normal Not Available [address], [address], 09/25/2022 19:58:38 09/25/19 23 09/25/2022 HEMOG LOBIN [...] Care in Diabe stewart(A DA). Not Available [facility] [place] [address] [place], [address], 09/25/2022 19:58:39 09/25/19 23 09/25/2022 CBC (INCL UDES DIFF/ PLT) white blood cell count 6.4 thous and/u L 3.8-10 .8 normal Not Available [facility] [place] [address] [place], [address], 09/25/2022 19:58:39 09/25/19 23 09/25/2022 CBC (INCL UDES DIFF/ PLT) red blood cell count 4.67 shan on/uL 3.80-5 .10 normal Not Available [facility] [place] [address] [place], [address], 09/25/2022 19:58:39 09/25/19 23 09/25/2022 CBC (INCL UDES DIFF/ PLT) hemoglobin 14.6 g/dL 11.7-1 5.5 normal Not Available [address], [address], 09/25/2022 19:58:39 09/25/19 23 09/25/2022 CBC (INCL UDES DIFF/ PLT) hematocrit 43.4 % 35.0-4 5.0 normal Not Available [address], [address], 09/25/2022 19:58:39 09/25/19 23 09/25/2022 CBC (INCL UDES DIFF/ PLT) MCV 92.9 fL 80.0-1 00.0 normal Not Available [address], [address], 09/25/2022 19:58:39 09/25/19 23 09/25/2022 CBC (INCL UDES DIFF/ PLT) MCH 31.3 pg 27.0-3 3.0 normal Not Available [address], [address], 09/25/2022 19:58:39 09/25/19 23 09/25/2022 CBC (INCL UDES DIFF/ PLT) MCHC 33.6 g/dL 32.0-3 6.0 normal Not Available [address], [address], 09/25/2022 19:58:39 09/25/19 23 09/25/2022 CBC (INCL UDES DIFF/ PLT) RDW 13.0 % 11.0-1 5.0 normal Not Available [address], [address], 09/25/2022 19:58:39 09/25/19 23 09/25/2022 CBC (INCL UDES DIFF/ PLT) platelet count 295 thous and/u L 140-40 0 normal Not Available [address], [address], 09/25/2022 19:58:39 09/25/19 23 09/25/2022 CBC (INCL UDES DIFF/ PLT) MPV 9.4 fL 7.5-12 .5 normal Not Available [address], [address], 09/25/2022 19:58:39 09/25/19 23 09/25/2022 CBC (INCL UDES DIFF/ PLT) absolute neutrophils 3584 cells /uL 1500-7 800 normal Not Available [address], [address], 09/25/2022 19:58:39 09/25/19 23 09/25/2022 CBC (INCL UDES DIFF/ PLT) absolute lymphocytes 2150 cells /uL 850-39 00 normal Not Available [address], [address], 09/25/2022 19:58:39 09/25/19 23 09/25/2022 CBC (INCL UDES DIFF/ PLT) absolute monocytes 512 cells /uL 200-95 0 normal Not Available [address], [address], 09/25/2022 19:58:39 09/25/19 23 09/25/2022 CBC (INCL UDES DIFF/ PLT) absolute eosinophils 122 cells /uL 15-500 normal Not Available [address], [address], 09/25/2022 19:58:39 09/25/19 23 09/25/2022 CBC (INCL UDES DIFF/ PLT) absolute basophils 32 cells /uL 0-200 normal Not Available [address], [address], 09/25/2022 19:58:39 09/25/19 23 09/25/2022 CBC (INCL UDES DIFF/ PLT) neutrophils 56 % normal Not Available [address], [place], [address], 09/25/2022 19:58:39 09/25/19 23 09/25/2022 CBC (INCL UDES DIFF/ PLT) lymphocytes 33.6 % normal Not Available [facility] [address], [address], 09/25/2022 19:58:39 09/25/19 23 09/25/2022 CBC (INCL UDES DIFF/ PLT) monocytes 8.0 % normal Not Available [facility] [address], [address], 09/25/2022 19:58:39 09/25/19 23 09/25/2022 CBC (INCL UDES DIFF/ PLT) eosinophils 1.9 % normal Not Available [facility] [address], [address], 09/25/2022 19:58:39 09/25/19 23 09/25/2022 CBC (INCL UDES DIFF/ PLT) basophils 0.5 % normal Not Available [facility] [address], [address], 09/25/2022 19:58:39 09/25/19 23 09/25/2022 INSUL IN [...] Diagn ostic s in 2021. Not Available [facility] [address], [address], 09/25/2022 19:58:40 03/31/20 22 03/26/2022 MAMMO , scree theresa, digit al, bilat eral No observ ation record ed. [id number] [facility] [address], [place], [address], 07/07/2022 09:19:37 07/14/1907/13/2022 US, itz x, reilly s, lower extre mity, unila teral No observ ation record ed. [facility] (Imaging) [address], [place], [address], 07/13/2022 17:50:33 Result Notes None recorded. Problems Name Problem SNOMED Code Status Onset Date Resolution Date Notes Provider Name and Address Organization Details Recorded Time Acne 76482143 Active 2021 Not Available [facility] 3 09:16:54 Benign essential hypertensi on 0123845 Active 2018 Not Available [facility] 3 09:16:54 Deviated nasal septum 164877314 Active 2021 Not Available [facility] 3 09:16:54 Herpes labialis 0750333 Active 2022 Not Available [facility] 3 09:16:54 Hypertroph y of nasal turbinates 26848364 Active 2021 Not Available [facility] 3 09:16:54 Dysmenorrh ea 870590897 Active Not Available [facility] 3 09:16:54 Mechanical complicati on of intrauteri ne contracept edilberto device 720062334 Active Not Available [facility] 3 09:16:55 Breasts asymmetric al 083393884 Active Not Available [facility] 3 09:16:55 Pain in pelvis 05725891 Active Not Available [facility] 3 09:16:55 Vaginitis 80452615 Active Not Available [facility] 3 09:16:55 Hypertensi ve disorder 72020101 Active Not Available [facility] 3 09:16:55 Anxiety 33841072 Active 2021 Not Available [facility] 3 09:16:55 Subclinica l hypothyroi dism 85045044 Active 2021 Not Available [facility] 3 09:16:55 Essential hypertensi on 04654356 Active Not Available [facility] 3 09:16:55 Snoring 86692405 Active 2021 Not Available [facility] 3 09:16:55 Cyst of ovary 38911824 Active Not Available [facility] 3 09:16:55 Irregular periods 33268156 Active Not Available [facility] 3 09:16:55 Weight gain 5777406 Active 2021 Not Available [facility] 3 09:16:55 Pain of right calf 1332784153738 103 Active 2022 [facility] [address], [place], [address] , [employer] 3 09:46:01 Muscle tension pain 306313552 Active 2022 [facility] [address], [address], [place], [address] , [employer] 3 10:37:33 Migraine 19121149 Active 2022 [facility] [address], [address], [place], [address] , [employer] [facility] 3 13:13:13 Insulin resistance 869116341 Active 2022 [facility] [address], [place], [address] , [employer] [facility] 3 10:32:12 Congestion of nasal sinus 83839170 Active 2022 [facility] [address], [place], [address] , [employer] [facility] 3 16:00:02 Notes:04/2020-POS COVID Problem Notes None recorded. Procedures Surgical History Date Name Laterality Status Provider Name and Address Organization Details Recorded Time 11/24/19 SEPTOPLASTY (SURG) completed Not Available [facility] 07/07/2022 09:19:35 03/24/20 21 Most Recent Mammogram completed Not Available [facility] 07/07/2022 09:14:20 10/28/19 21 Date of Last Pap Smear completed Not Available [facility] 07/07/2022 09:14:19 10/08/19 20 Orthopedic Surgery completed Not Available [facility] 07/07/2022 09:14:20 02/20/20 19 Date of Last Colonoscopy completed Not Available [facility] 07/07/2022 09:14:19 02/20/20 19 Colonoscopy completed Not Available [facility] 07/08/19 23 09:14:20 04/05/20 18 nasal septoplasty completed Not Available [facility] 07/07/2022 09:14:20 04/20/20 17 [employer] Procedure completed Not Available [facility] 2022 09:14:20 04/24/20 12 [employer] Procedure completed Not Available [facility] 2022 09:14:20 03/31/20 10 [employer] Surgery completed Not Available [facility] 07/08/19 09:14:20 other completed Not Available [facility] 05/2022 09:14:20 Appendectomy completed Not Available [facility] 07/07/2022 09:14:20 [employer] Surgery completed Not Available [facility] 07/07/2022 09:14:20 Imaging Results None recorded. Procedure [...] Not Available Not Available No t Available [place] Thyroid 30 mg tablet TAKE 1 TABLET [...] completed Not Available Not Available Not Available [facility] ODT 75 mg disintegrat ing tablet [...] blood by Pulse oximetry Heart rate Systolic And Diastolic Provider Name and Address Organization Details Last Updated DateTime 3 177.8 cm 97.3 [degF] 34.5 kg/m2 877689. 96 g 16 /min 97 % 97 % 96 /min 122/82 mm[Hg] DARIA Mari MA [employer] [facility] 3 09:17:15 Date Recorded Systolic And Diastolic Provider Name and Address Organization Details Last Updated DateTime 09/16/2022 140/80 mm[Hg] [facility] [address], [place], [address], MA [employer] [facility] 09/16/2022 13:15:11 Date Recorded Body height Body temperature Body mass index (BMI) Body weight Respiratory rate Oxygen saturation Oxygen saturation in Arterial blood by Pulse oximetry Heart rate Systolic And Diastolic Provider Name and Address Organization Details Last Updated DateTime 3 177.8 cm 97.8 [degF] 34.9 kg/m2 437026. 95 g 16 /min 99 % 99 % 68 /min 138/80 mm[Hg] DARIA Mari MA [employer] [facility] 3 12:30:41 Date Recorded Body height Body temperature Provider N mj and Address Organization Details Last Updated DateTime 10/29/2021 177.8 cm 98.1 [degF] Not Available [facility] 07/07/2022 09:16:18 Date Recorded Body height Systolic And Diastolic Provider Name and Address Organization Details Last Updated DateTime 12/21/2022 177.8 cm 148/102 mm[Hg] Nickie Briggs RN MA [employer] [facility] 12/21/2022 10:45:02 Date Recorded Body mass index (BMI) Provider Name and Address Organization Details Last Updated DateTime 03/22/2023 33 kg/m2 [facility] [address], [address], [place], [address], [employer] 04/03/2023 14:39:00 Date Recorded Body height Body weight Body temperature Heart rate Oxygen saturation Oxygen saturation in Arterial blood by Pulse oximetry Systolic And Diastolic Provider Name and Address Organization Details Last Updated DateTime 3 177.8 cm 515027. 25 g 97.3 [degF] 94 /min 97 % 97 % 126/86 mm[Hg] Nickie Briggs RN [facility] 3 12:04:52 Social History Question Answer Notes LastModified by Organizat ion Details LastModified Time Tobacco Smoking Status Never Smoker YOSELIN Massey, [facility] 12/21/2022 10:25:48 What Is Your Level Of Caffeine Consumption? Moderate [id number] Information not available 07/07/2022 How Much Tobacco Do You Chew? None [id number] Information not available 07/07/2022 In The 14 [...] Type Of Diet Are You Following? REGULAR [id number] Information not available 07/07/2022 Which Illicit Or Recreational Drugs Have You Used? None Information not available 12/21/2022 Have There Been Any Changes To Your Family Or Social Situation? No Information no t available 12/21/2022 Do You Use Insect Repellent Routinely? No Information not available 12/21/2022 What Is Your Relationship Status? [id number] Information not available 07/07/2022 Do You Use Your Seat Belt Or Car Seat Routinely? Yes Information not available 12/21/2022 Do You Have Smoke And Carbon Monoxide Detectors In Your Home? Yes Information not available 12/21/2022 How Much Tobacco Do You Smoke? No [id number] Information not available 07/07/2022 Do You Use [...] is your level of alcohol consumption? Occasional [id number] Information not available 07/07/2022 Do you or have you ever used smokeless tobacco? Never used smokeless tobacco [id number] Information not available 07/07/2022 Are you currently employed? 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 Never used electronic cigarettes Information not available 12/21/2022 What is your exercise level? Moderate [id number] Information not available 07/07/2022 Mental Status None recorded. Family History Relationship Description Onset Age of this Age Resolved Age Notes LastModified by Organization Details LastModified Time Mother Diabetes mellitus [id number] Not available 07/07/2022 09:14:22 Mother Malignant tumor of breast x 2 [id number] Not available 07/07/2022 09:14:22 Mother Hypertensive disorder [id number] Not available 07/07/2022 09:14:22 Paternal Uncle Malignant neoplasm of lung [id number] Not available 07/07/2022 09:14:22 Father Hypertensive disorder [id number] Not available 07/07/2022 09:14:22 Father Problem drinker [id number] Not available 07/07/2022 09:14:22 Father Pulmonary emphysema [id number] Not available 07/07/2022 09:14:22 Medical History Condition Response OTHER # 1 Y BLOOD CLOTS Y HYPOTHYROIDISM Y DEPRESSION (INCLUDING POST ) Y BOWEL PROBLEMS Y DIZZINESS Y HYPERTENSION Y ANXIETY DISORDER Y HISTORY WITH COMPLICATIONS WITH ANESTHES IA ? Y Gynecological History Statement/Question Response Abnormal Pap [...] mcg/0.3 mL dose 09/03/2020 completed Not Available [facility] 3 09:19:30 COVID-19, mRNA, LNP-S, PF, 30 mcg/0.3 mL dose 08/12/2020 completed Not Available [facility] 3 09:19:30 Past Encounters Encounter ID Performer Location Encounter Start Date Encounter Closed Date Diagnosis/Indication Diagnosis SNOMED-CT Code Diagnosis ICD10 Code Diagnosis Note [id number] [facility] ic_[facility] _ATHENA_M IGRATION_ DEFAULT_1 _1 , 10/27/2020 00:00:00 10/27/2020 17:24:33 [id number] [facility] [place] [address] [place] [address] 11/20/2020 00:00:00 12/05/2020 17:47:23 [id number] Markell Pratt MD [facility] [place] [address] [place] [address] 09/15/2021 00:00:00 10/06/2021 18:25:32 [id number] Markell Pratt MD [facility] Internal [facility] [place] [address] [place] [address] 10/27/2021 00:00:00 11/04/2021 13:51:55 [id number] Khoa Ly MD [facility] ENT [place] [address] [place] [address] 10/29/2021 00:00:00 10/29/2021 14:24:04 [id number] HIWOT Lucas [facility] [place] [address] [place] [address] 07/13/2022 09:08:37 07/13/2022 09:55:31 Pain of right calf 6415602475 209661 M79.661 onset over 2 years ago after right ankle surgery that she had nerve block in her calf area:STAT RLE venous doppler check;Upda te negative for DVT. Muscle tension pain 2790 30746 M79.10 Trial of soma muscle relaxer or the Right lower calf muscular pain. [id number] HIWOT [facility] [place] [address] [place] [id number] 09/16/2022 12:25:19 09/16/2022 13:24:31 Subclinical hypothyroidism 81788596 E02 on supplement . due for TFTs Anxiety 67042354 F41.9 stable on buspar 5mg bid Body mass index 30+ - obesity 904815862 Z68.34 pt would like to get raji for weight loss . aware this may not be approved Benign ess ential hypertension 6640537 I10 stable on losartan 50mg daily Cholesterol screening 27 3739764 Z13.220 fasting lipids due Diabetes m ellitus screening 608662444 Z13.1 diabetes screening due Long-term drug therapy 423028839 Z79.899 all labs due Migraine 22883581 G43.90 9 start nurtec ODT one tab PRN 24 hours Adult heal th examination 811543014 Z00.01 well exam completed [id number] [facility] [place] [facility] [place] [address] [place] [address] 12/21/2022 10:24:57 12/21/2022 10:47:32 [id number] HIWOT [place] [facility] [place] [address] [place] [address] 03/22/2023 12:00:19 03/22/2023 12:53:16 Benign essential hypertension 3434742 I10 stable on losartan 50mg daily Subclinica l hypothyroidism 51896997 E02 pt has been on armour thyroid from specialist provider. Anxiety 00137150 F41.9 stable on buspar 5mg bid Body mass index 30+ - obesity 559594153 Z68.34 pt is losing weight Long-term drug therapy 804633154 Z79.899 labs are UTD Health Concerns Section Related Observation LastModified by Organization Detai ls LastModified Time None Recorded Concern Status LastModified by Organization Details LastModified Time None Recorded Advance Directives Directive None Recorded Payers Insurance Date Sequence Insurance Name Policy Number Policy [place] Covered Member ID [place] Member ID Guarantor Name 04/04/2023 1 [place] [id number] 2 Yanira Kimudich [id number] Yanira Langston Notes Date Note Type [...] not get them done. HI[facility] [address] [facility] [address], [facility] [address], [place], [address], [facility] [employer] 08/01/2022 17:53:20 09/17/19 23 text/htm l Anxiety/DepressionReported [...] exercise capacity; no snoring Wellness [facility] [place] [address] [address], [place], [address], [employer] [facility] [employer] [facility] 10/06/2022 22:30:19 03/22/20 23 text/htm l Anxiety/DepressionReported [...] exercise capacity; no snoring [facility] [place] [address] [address], [place], [address], [email or web address] 04/03/2023 14:41:02 OBGyn Episode No OBEpisode recorded.
--- OUTSIDE RECORDS SUMMARY | 2024-11-13 07:43 | XMS_ITS | Clinical Summary ---
Author Organization [facility] Address [address] [place] [address] Care Team Providers Care Cream Tester Name Role Phone Unavailable Primary Care Provider Unavailabl e Source Comments [facility],non-owned Affiliates and Associated Physician Practices is amultiple site organization consisting of ambulatory clinics and hospital sitesin [place], [place], [place] and [place]. This disclosure is being madepursuant to the Care Everywhere program and may not contain all information available regarding this patient. 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
--- OUTSIDE RECORDS SUMMARY | 2024-11-13 07:43 | XMS_ITS | Clinical Summary ---
Author Organization [facility] Address [address] [address] [facility] [place] [address] Care Team Providers Care Senior Graphic Designer Name Role Phone Sandra Milton Primary Care Provider [phone] Allergies No known active allergies Medications gabapentin [...] patient's age to complete this topic Insurance [facility] Care Teams Senior Graphic Designer Relationship Specialty Start Date End Date Sandra Milton PA PCP - General PHYSICIAN LEAD MINER 10/10/20
--- OUTSIDE RECORDS SUMMARY | 2024-11-13 07:43 | XMS_ITS | Data Portability ---
Author Organization [facility] NOHEMIMonica Jeffers Address [address] [place] [address] Care Team Providers Care Review Specialist Name Role Phone JED BETTS Primary Care Provider Unavailab le Assessment No assessment recorded. Plan of Treatment Reminders Order Date Submit Date Provider Last Modified By Organization Details Last Modified Time Details Appointments ANY 15 2024 08:00A M HIWOT Lucas Not available Not available Not available Lab vitami n D, 25-hyd cass, total, serum 2024 025 [email or web address], [address], [place], [address], 08/02/2024 14:57:45 CMP, serum or plasma 2024 025 AMANDA [facility], [address], [place], [address], 07/30/2024 12:41:02 CBC w/ auto diff 2024 025 [email or web address], [address], [place], [address], 08/02/2024 14:58:03 vitami n B12 + folate , serum or blood 2024 025 [email or web address], [address], [place], [address], 08/02/2024 14:57:54 TSH + free T4, serum 2024 025 o[facility]as [facility], [address], [place], [address], 08/02/2024 14:56:46 influe nza virus A + B + SARS-C oV-2 (COVID 19) Ag panel, rapid IA, upper respir atory specim en 2024 025 [email or web address] In-Office Order, Internal Use Only DO Not Attach Compendium DO Not Attach Compendium, Do Not Delete/merge, [id number] 06/12/2024 17:42:13 lipid panel, serum 2023 024 AMANDA [facility], [address], [place], [address], 02/01/2024 08:30:35 CMP, serum or plasma 2023 024 AMANDA [facility], [address], [place], [address], 02/01/2024 08:30:36 CBC w/ auto diff 2023 024 AMANDA [facility], [address], [place], [address], 02/01/2024 08:30:38 vitami n B12 + folate , serum or blood 2023 024 AMANDA [facility], [address], [place], [address], 02/01/2024 08:30:36 TSH + free T4, serum 2023 024 AMANDA [facility], [address], [place], [address], 02/01/2024 08:30:35 vitami n D, 25-hyd cass, total, serum 2023 024 AMANDA [facility], [address], [place], [address], 02/01/2024 08:30:39 HbA1c (hemog lobin A1c), blood 2023 024 [facility], [address], [place], [address], 02/01/2024 08:30:37 insuli n, serum 2023 024 [facility], [address], [place], [address], 02/01/2024 08:30:38 Referral None record ed. Procedures None record ed. Surgeries None record ed. Imaging None record ed. Medication Orders Zepbou nd 15 mg/0.5 mL subcut aneous pen inject or 2024 025 [facility][id number] [address] [place] [address] [facility] [address] [facility] , [place], [place], [address], 10/25/2024 12:49:33 amoxic illin 875 mg-pot assium clavul anate 125 mg tablet 2024 025 [id number] [address] [place], [address], 07/25/2024 09:07:31 bimal ukast 10 mg tablet 2023 024 [id number] [address] [place], [address], 01/25/2024 10:36:24 Nurtec ODT 75 mg disint egrati ng tablet 2023 024 [id number] [address] [place], [address], 01/25/2024 10:36:23 Patient TargetsNo targets recorded. Patient Instructions Encounter Date Encounter Id Patient Instructions Last Modified By Organization Details Last Modified Time 07/25/2024 [id number] A healthy lifestyle: care instructions [email or web address] Not available 07/25/2024 09:30:54 Reason for Referral None Reported. Results Created Date Observation Date Name Description Value Unit Range Abnormal Flag Note LastModifiedBy Organization Detail LastModifiedTime 01/31/2002/01/2024 LIPID PANEL W/ CHOL/ HDL RATIO cholesterol, total 167 mg/dL 100-19 9 Not Available [facility] ([facility]) [address] [facility], [place], [address], 02/01/2024 08:30:35 01/31/20 24 02/01/2024 LIPID PANEL W/ CHOL/ HDL RATIO triglyceride s 111 mg/dL 0-149 Not Available [facility]) [address] [place], [address], 02/01/2024 08:30:35 01/31/2002/01/2024 LIPID PANEL W/ CHOL/ HDL RATIO HDL cholesterol 50 mg/dL >39 Not Available [facility]) [address] [place], [address], 02/01/2024 08:30:35 01/31/20 24 02/01/2024 LIPID PANEL W/ CHOL/ HDL RATIO VLDL cholesterol mira 20 mg/dL 5-40 Not Available [facility]) [address] [place], [address], 02/01/2024 08:30:35 01/31/20 24 02/01/2024 LIPID PANEL W/ CHOL/ HDL RATIO LDL chol calc ([email or web address] 97 mg/dL 0-99 Not Available [facility]) [address] [place], [address], 02/01/2024 08:30:35 01/31/20 24 02/01/2024 LIPID PANEL W/ CHOL/ HDL RATIO T. chol/HDL ratio 3.3 ratio 0.0-4. 4 T. Chol/ HDL Ratio Men Women 1/2 Avg.R isk 3.4 3.3 Avg.R isk 5.0 4.4 2X Avg.R isk 9.6 7.1 3X Avg.R isk 23.4 11.0 Not Available [facility] ([facility]) [address] [place], [address], 02/01/2024 08:30:35 01/31/20 24 02/01/2024 TSH+F REE T4 TSH 2.400 uIU/m L 0.450- 4.500 Not Available [facility] ([facility]) [address] [place], [address], 02/01/2024 08:30:35 01/31/20 24 02/01/2024 TSH+F REE T4 T4,free(dire ct) 1.49 NG/dL 0.82-1 .77 Not Available [facility] ([facility]) [address] [place], [address], 02/01/2024 08:30:35 01/31/20 24 02/01/2024 COMP. METAB OLIC PANEL (14) glucose 93 mg/dL 70-99 Not Available [facility] ([facility]) [address] [place], [address], 02/01/2024 08:30:36 01/31/20 24 02/01/2024 COMP. METAB OLIC PANEL (14) BUN 16 mg/dL 6-24 Not Available [facility] ([facility]) [address] [place], [address], 02/01/2024 08:30:36 01/31/20 24 02/01/2024 COMP. METAB OLIC PANEL (14) creatinine 1.27 mg/dL 0.57-1 .00 above high normal Not Available [facility] ([facility]) [address] [place], [address], 02/01/2024 08:30:36 01/31/20 24 02/01/2024 COMP. METAB OLIC PANEL (14) eGFR 53 mL/mi n/1.7 3 >59 below low normal Not Available [facility] ([facility]) [address] [facility], [place], [address], 02/01/2024 08:30:36 01/31/20 24 02/01/2024 COMP. METAB OLIC PANEL (14) BUN/creatini ne ratio 13 9-23 Not Available [facility]) [address] [facility] [place], [address], 02/01/2024 08:30:36 01/31/20 24 02/01/2024 COMP. METAB OLIC PANEL (14) sodium 139 mmol/ L 134-14 4 Not Available [facility] ([facility]) [address] [facility], [place], [address], 02/01/2024 08:30:36 01/31/20 24 02/01/2024 COMP. METAB OLIC PANEL (14) potassium 4.6 mmol/ L 3.5-5. 2 Not Available [facility] ([facility]) [address] [facility] [place], [address], 02/01/2024 08:30:36 01/31/20 24 02/01/2024 COMP. METAB OLIC PANEL (14) chloride 104 mmol/ L 96-106 Not Available [facility] ([facility]) [address] [facility] [place], [address], 02/01/2024 08:30:36 01/31/20 24 02/01/2024 COMP. METAB OLIC PANEL (14) carbon dioxide, total 21 mmol/ L 20-29 Not Available [facility] ([facility]) [address] [facility] [place], [address], 02/01/2024 08:30:36 01/31/20 24 02/01/2024 COMP. METAB OLIC PANEL (14) calcium 9.4 mg/dL 8.7-10 .2 Not Available [facility] ([facility]) [address] [place], [address], 02/01/2024 08:30:36 01/31/20 24 02/01/2024 COMP. METAB OLIC PANEL (14) protein, total 6.6 g/dL 6.0-8. 5 Not Available [facility] ([facility]) [address] [place], [address], 02/01/2024 08:30:36 01/31/20 24 02/01/2024 COMP. METAB OLIC PANEL (14) albumin 4.4 g/dL 3.9-4. 9 Not Available [facility] ([facility]) [address] [place], [address], 02/01/2024 08:30:36 01/31/20 24 02/01/2024 COMP. METAB OLIC PANEL (14) globulin, total 2.2 g/dL 1.5-4. 5 Not Available [facility] ([facility]) [address] [place], [address], 02/01/2024 08:30:36 01/31/20 24 02/01/2024 COMP. METAB OLIC PANEL (14) bilirubin, total 1.0 mg/dL 0.0-1. 2 Not Available [facility] ([facility]) [address] [place], [address], 02/01/2024 08:30:36 01/31/20 24 02/01/2024 COMP. METAB OLIC PANEL (14) alkaline phosphatase 69 IU/L 44-121 Not Available [facility] [address] [place], [address], 02/01/2024 08:30:36 01/31/20 24 02/01/2024 COMP. METAB OLIC PANEL (14) AST (SGOT) 18 IU/L 0-40 Not Available [facility] ([facility]) [address] [place], [address], 02/01/2024 08:30:36 01/31/20 24 02/01/2024 COMP. METAB OLIC PANEL (14) ALT (SGPT) 20 IU/L 0-32 Not Available [facility] ([facility]) [address] [facility], [place], [address], 02/01/2024 08:30:36 01/31/2002/01/2024 VITAM IN B12 AND FOLAT E vitamin B12 865 pg/mL 232-12 45 Not Available [facility] ([facility]) [address] [facility], [place], [address], 02/01/2024 08:30:36 01/31/2002/01/2024 VITAM IN B12 AND FOLAT E folate (folic acid), serum 19.2 NG/mL >3.0 A serum folat e gutierrez ntrat ion of less than 3.1 ng/mL is consi dered to repre sent clini mira defic iency . Not Available [facility] ([facility]) [address] [facility], [place], [address], 02/01/2024 08:30:36 01/31/2001/31/2024 HEMOG LOBIN A1C hemoglobin A1C 5.2 % 4.8-5. 6 Predi abete s: 5.7 - 6.4 Diabe stewart: >6.4 Glyce basia contr ol for adult s with diabe stewart: <7.0 Not Available [facility] ([facility]) [address] [facility], [place], [address], 02/01/2024 08:30:37 01/31/2002/01/2024 INSUL IN insulin 10.2 uIU/m L 2.6-24 .9 Not Available [facility] ([facility]) [address] [facility], [place], [address], 02/01/2024 08:30:38 01/31/2001/31/2024 CBC WITH DIFFE RENTI AL/PL ATELE T WBC 5.9 x10e3 /uL 3.4-10 .8 Not Available [facility] ([facility]) [address] [facility], [place], [address], 02/01/2024 08:30:38 01/31/20 24 01/31/2024 CBC WITH DIFFE RENTI AL/PL ATELE T RBC 4.68 x10e6 /uL 3.77-5 .28 Not Available [facility] ([facility]) [address] [facility], [place], [address], 02/01/2024 08:30:38 01/31/2001/31/2024 CBC WITH DIFFE RENTI AL/PL ATELE T hemoglobin 14.7 g/dL 11.1-1 5.9 Not Available [facility] ([facility]) [address] [facility], [place], [address], 02/01/2024 08:30:38 01/31/2001/31/2024 CBC WITH DIFFE RENTI AL/PL ATELE T hematocrit 44.5 % 34.0-4 6.6 Not Available [facility] ([facility]) [address] [facility], [place], [address], 02/01/2024 08:30:38 01/31/2001/31/2024 CBC WITH DIFFE RENTI AL/PL ATELE T MCV 95 fL 79-97 Not Available [facility] ([facility]) [address] [place], [address], 02/01/2024 08:30:38 01/31/2001/31/2024 CBC WITH DIFFE RENTI AL/PL ATELE T MCH 31.4 pg 26.6-3 3.0 Not Available [facility] ([facility]) [address] [place], [address], 02/01/2024 08:30:38 01/31/2001/31/2024 CBC WITH DIFFE RENTI AL/PL ATELE T MCHC 33.0 g/dL 31.5-3 5.7 Not Available [facility] ([facility]) [address] [facility], [place], [address], 02/01/2024 08:30:38 01/31/20 24 01/31/2024 CBC WITH DIFFE RENTI AL/PL ATELE T RDW 12.6 % 11.7-1 5.4 Not Available [facility] ([facility]) [address] [facility], [place], [address], 02/01/2024 08:30:38 01/31/2001/31/2024 CBC WITH DIFFE RENTI AL/PL ATELE T platelets 347 x10e3 /uL 150-45 0 Not Available [facility] ([facility]) [address] [facility], [place], [address], 02/01/2024 08:30:38 01/31/20 24 01/31/2024 CBC WITH DIFFE RENTI AL/PL ATELE T neutrophils 60 % notest ab. Not Available [facility] ([facility]) [address] [facility], [place], [address], 02/01/2024 08:30:38 01/31/20 24 01/31/2024 CBC WITH DIFFE RENTI AL/PL ATELE T lymphs 28 % notest ab. Not Available [facility] ([facility]) [address] [place], [address], 02/01/2024 08:30:38 01/31/20 24 01/31/2024 CBC WITH DIFFE RENTI AL/PL ATELE T monocytes 9 % notest ab. Not Available [facility] ([facility]) [address] [facility], [place], [address], 02/01/2024 08:30:38 01/31/20 24 01/31/2024 CBC WITH DIFFE RENTI AL/PL ATELE T eos 2 % notest ab. Not Available [facility] ([facility]) [address] [facility], [place], [address], 02/01/2024 08:30:38 01/31/20 24 01/31/2024 CBC WITH DIFFE RENTI AL/PL ATELE T basos 1 % notest ab. Not Available [facility] ([facility]) [address] [facility], [place], [address], 02/01/2024 08:30:38 01/31/20 24 01/31/2024 CBC WITH DIFFE RENTI AL/PL ATELE T neutrophils (absolute) 3.5 x10e3 /uL 1.4-7. 0 Not Available [facility] ([facility]) [address] [facility], [place], [address], 02/01/2024 08:30:38 01/31/20 24 01/31/2024 CBC WITH DIFFE RENTI AL/PL ATELE T lymphs (absolute) 1.7 x10e3 /uL 0.7-3. 1 Not Available [facility] ([facility]) [address] [facility], [place], [address], 02/01/2024 08:30:38 01/31/20 24 01/31/2024 CBC WITH DIFFE RENTI AL/PL ATELE T monocytes(ab solute) 0.5 x10e3 /uL 0.1-0. 9 Not Available [facility] ([facility]) [address] [place], [address], 02/01/2024 08:30:38 01/31/20 24 01/31/2024 CBC WITH DIFFE RENTI AL/PL ATELE T eos (absolute) 0.1 x10e3 /uL 0.0-0. 4 Not Available [facility] ([facility]) [address] [facility], [place], [address], 02/01/2024 08:30:38 01/31/20 24 01/31/2024 CBC WITH DIFFE RENTI AL/PL ATELE T baso (absolute) 0.1 x10e3 /uL 0.0-0. 2 Not Available [facility] ([facility]) [address] [facility], [place], [address], 02/01/2024 08:30:38 01/31/20 24 01/31/2024 CBC WITH DIFFE RENTI AL/PL ATELE T immature granulocytes 0 % notest ab. Not Available [facility] ([facility]) [address] [facility], [place], [address], 02/01/2024 08:30:38 01/31/20 24 01/31/2024 CBC WITH DIFFE RENTI AL/PL ATELE T immature grans (abs) 0.0 x10e3 /uL 0.0-0. 1 Not Available [facility] ([facility]) [address] [facility], [place], [address], 02/01/2024 08:30:38 01/31/20 24 02/01/2024 VITAM IN [...] Svitlana velasquez [place]: [facility] [employer] . 2. Victor M olson MF, Jolynn alvarado [place], Scot off-F errar i MORSE, et al. Evalu ation , treat ment, and preve ntion of vitam in D defic iency : an Endoc rine Socie ty clini mira pract ice guide line. JCEM. 2010; 96(7) :1911 -30. Not Available [facility] ([facility]) [address] [facility], [place], [address], 02/01/2024 08:30:39 05/30/19 25 05/30/2024 pap, IG [...] DO Not Attach Compendium, Do Not Delete/merge, [id number] 06/12/2024 17:42:02 06/12/19 25 06/12/2024 influ eyal virus A + B + SARS- CoV-2 (COVI D19) Ag panel , rapid IA, upper respi rator y speci men Flu B negati ve Not Available In-Office Order Internal Use Only DO Not Attach Compendium DO Not Attach Compendium, Do Not Delete/merge, [id number] 06/12/2024 17:42:02 06/12/19 25 06/12/2024 influ eyal virus A + B + SARS- CoV-2 (COVI D19) Ag panel , rapid IA, upper respi rator y speci men Rapid SARS CoV 2 Ag, QL IA, respiratory specimen negati ve Not Available In-Office Order Internal Use Only DO Not Attach Compendium DO Not Attach Compendium, Do Not Delete/merge, [id number] 06/12/2024 17:42:02 03/05/20 24 02/08/2024 US, kidne y No observ ation record ed. AMANDA [facility] [address], [place], [address], 03/08/2024 10:08:16 03/20/20 24 03/20/2024 CT, urogr am No observ ation record ed. [facility]AN[facility] [address], [place], [address], 03/23/2024 10:10:54 05/21/19 25 05/21/2024 MAMMO , scree theresa, digit al, bilat eral No observ ation record ed. [facility] [address] [place], [address], 05/21/2024 18:03:18 07/04/1905/21/2024 MAMMO , scree theresa, digit al, bilat eral No observ ation record ed. [facility] [address] [place], [address], 07/05/2024 09:54:33 11/14/1911/12/2024 US, kidne y No observ ation record ed. [facility] [address], [place], [address], 11/13/2024 07:41:33 Result Notes None recorded. Problems Name Problem SNOMED Code Status Onset Date Resolution Date Notes Provider Name and Address Organization Details Recorded Time Long-term drug therapy Active 2023 HIWOT Lucas Attn: Maggie jones,[address] [place], [address], [place] [facility] 4 23:05:05 Body mass index 30+ - obesity 042515024 Active 2023 HIWOT Lucas Attn: Maggie jones,[address] [place], [address], [place] [facility] 4 23:05:06 Seasonal allergic rhinitis 521662009 Active 2023 HIWOT Lucas Attn: Maggie jones,[address] [place], [address], [place] [facility] 4 23:05:14 Migraine 82775058 Active 2023 HIWOT Lucas Attn: Maggie jones,[address] [place], [address], [place] [facility] 4 23:05:15 Vitamin D deficiency 16917118 Active 2023 HIWOT Lucas Attn: Maggie jones,[address] [facility], [place], [address], [facility] 4 23:05:25 Anxiety 95842120 Active 2023 HIWOT Lucas Attn: Maggie jones,[address] [facility], [place], [address], [facility] 4 23:05:27 Benign essential hypertension 4697235 Active 2023 HIWOT Lucas Attn: Maggie jones,[address] [facility], [place], [address], [facility] 4 23:05:39 Problem Notes None recorded. Procedures Surgical History Date Name Laterality Status Provider Name and Address Organization Details Recorded Time Appendectomy completed Anabel Meek MA [facility] 01/25/2024 11:58:17 Eye Surgery completed Anabel Meek MA [facility] 01/25/2024 11:58:57 Imaging Results None recorded. Procedure [...] 875 mg-potassiu m clavulanate 125 mg tablet TAKE 1 [...] Not Available Not Available No t Available Nurtec ODT 75 mg disintegrat ing tablet Take [...] completed Not Available Not Available Not Available tirzepatide (weight loss) 15 mg/0.5 mL subcutaneou s pen injector INJECT 15 MG UNDER THE SKIN ONCE WEEKLY active Not Available Not Available No t Available Zepbound 10 mg/0.5 mL subcutaneou s pen injector 06/22 completed Not Available Not Available Not Available Zepbound 2.5 mg/0.5 mL subcutaneou s pen injector Inject 2.5 mg every week by subcutane ous route as directed. 07/14 completed Not Available Not Available Not Available Zepbound 12.5 mg/0.5 mL subcutaneou s pen injector Inject 12.5 mg every week by subcutane ous route. 10/04 completed Not Available Not Available Not Available Vitals Date Recorded Systolic And Diastolic Provider Name and Address Organization Details Last Updated DateTime 07/25/2024 100/70 mm[Hg] HIWOT Lucas Attn: Accounting,[address] [place], [address], [facility] 07/25/2024 09:32:08 Date Recorded Body height Body mass index (BMI) Body weight Respiratory rate Oxygen saturation Oxygen saturation in Arterial blood by Pulse oximetry Heart rate Systolic And Diastolic Provider Name and Address Organization Details Last Updated DateTime 5 177.8 cm 31.1 kg/m2 88028.5 4 g 18 /min 97 % 97 % 89 /min 108/82 mm[Hg] Sacha Salas MA [facility] 5 09:12:44 Date Recorded Systolic And Diastolic Provider Name and Address Organization Details Last Updated DateTime 01/25/2024 110/80 mm[Hg] HIWOT Lucas Attn: Accounting,[address] [place], [address], [facility] 01/25/2024 10:31:52 Date Recorded Body height Body mass index (BMI) Body weight Respiratory rate Oxygen saturation Oxygen saturation in Arterial blood by Pulse oximetry Heart rate Systolic And Diastolic Provider Name and Address Organization Details Last Updated DateTime 4 177.8 cm 32.9 kg/m2 699733. 94 g 18 /min 99 % 99 % 89 /min 138/82 mm[Hg] Anabel Meek MA [facility] 4 10:10:38 Social History Question Answer Notes LastModified by Organizat ion Details LastModified Time Tobacco Smoking Status Never Smoker Anabel Meek MA null, [facility] 01/25/2024 13:00:00 Do You Have An Advance [...] 17:09:35 Influenza, split virus, quadrivalent, PF 03/12/2021 completed YOSELIN [place], [place] [facility] 02/17/2024 17:09:35 Past Encounters Encounter ID Performer Location Encounter Start Date Encounter Closed Date Diagnosis/Indication Diagnosis SNOMED-CT Code Diagnosis ICD10 Code Diagnosis Note [id number] Markell Pratt MD [facility] [employer] [address] [place] [address] 01/25/2024 09:59:48 01/25/2024 10:54:30 Long-term drug therapy 051114940 Z79.899 cmp, cbc and b12, folate and thyroid labs are due Benign ess ential hypertension 5697602 I10 Stable on losartan 100 mg daily and nebivolol 5 mg daily Anxiety 62695003 F41.9 Stable on BuSpar 10 mg twice daily Vitamin D deficiency 347 38846 E55.9 Check vitamin-D lab per patient request Body mass index 30+ - obesity 904508011 Z68.32 Screening insulin level ordered. BMI is 32.9 Migraine 34430370 G43.90 9 Refill Nurtec ODT 75 mg as directed for migraine breakthrou gh Seasonal a llergic rhinitis 093849695 J30.2 Refill Singulair 10 mg daily Cholesterol screening 27 8362635 Z13.220 Fasting lipid panel ordered Diabetes m ellitus screening 250238367 Z13.1 Annual diabetes screening ordered Adult heal th examination 343323481 Z00.01 Annual wellness exam complete [id number] Markell Pratt MD [facility] [employer] [address] [place] [address] 06/12/2024 17:00:15 06/12/2024 17:51:40 Acute sinusitis 02439385 J01.90 Nasal congestion 7274650 0 R09.81 [id number] Markell Pratt MD [facility] [employer] [address] [place] [address] 07/25/2024 08:59:35 07/25/2024 10:09:29 Body mass index 30+ - obesity 177109729 Z68.31 Increased his Zepbound 15 mg weekly dosing Obesity 593035553 E66.9 Continue healthy diet modificati ons and exercise Benign ess ential hypertension 2042154 I10 Stable on losartan 100 mg daily and decrease to 2.5mg daily. Anxiety 45682314 F41.9 Stable on BuSpar 10 mg twice daily Vitamin D deficiency 347 84582 E55.9 Check vitamin-D lab per patient request Migraine 11247950 G43.90 9 Refill Nurtec ODT 75 mg as directed for migraine breakthrou gh Seasonal a llergic rhinitis 823911894 J30.2 PRN Singulair 10 mg daily Long-term drug therapy 333839888 Z79.899 cmp, cbc and b12, folate and thyroid labs are due Serum crea tinine above reference range 301211009 R79.89 Creatinine had gone up to 1.27. [...] [place] Member ID Guarantor Name 08/03/2024 1 [facility] [id number] Yanira Langston [id number] 19 Yanira Langston Notes Date Note Type [...] pressure management. HIWOT Lucas Attn: Accounting,[address] [facility], [place], [address], [facility] 02/05/2024 23:06:25 07/25/2024 text/html Anxiety/Depressi onR eported bypatient.Notes:Corina lang is taking BuSpar 10 mg twice daily for management of anxiety. She does report feeling stable.HeadacheRepo rted bypatient.Notes:Corina alng takes Nurtec as needed for migraine breakthrough and takes nortriptyline 50 mg q.h.s..Hypertension Reported bypatient.Notes:Corina lang is taking losartan 100 mg daily and nebivolol 5 mg daily for blood pressure management. Patient has had a mildly elevated creatinine in the past that has been increasing. We have completed a renal ultrasound which was stable. HIWOT Lucas Attn: Accounting[address] [place], [address], [facility] 08/02/2024 17:24:22 OBGyn Episode No OBEpisode recorded.
[2024-11-13 08:37] LABS: Total Volume 24 Hour Urine 2000 ml
[2024-11-13 10:33] LABS: Creatinine 24 Hour Urine 1.8 gm/24 (0.8-1.8)
[2024-11-13 11:19] LABS: Total Volume 24 Hour Urine 2000 ml
== END 2024-11-13 07:22 | disposition home or self-care (01) ==
LOC: ANHLAB 07:41
PROVIDERS: PCP Physician Assistant; Visit Provider Internal Medicine Nephrology
DX: R94.4 Abnormal results of kidney function studies (principal); R76.0 Raised antibody titer
CPT/HCPCS: 81050; 82570; 82595; 84540; 86037; 86335

== ENCOUNTER 2025-02-22 08:01 | Outpatient (CLI) | payer BC, SELFPAY ==
--- OUTSIDE RECORDS SUMMARY | 2007-07-28 04:04 | XMS_ITS | Continuity of Care Document ---
Author Organization [facility] Address [id number] [place] [address] [place] [address] Phone Care Team Providers Care Diesel Locomotive Engineer Name Role Phone Moises DACOSTA OD, Albert Unavailable Unavailabl e Procedures Procedure Date Office/outpatient Visit, [facility] QuantifEye/Optomap Advance Directives Directive Yes / No Effective Date File Name No Information Encounters Encounter Description Practice Location Reason(s) For Visit Diagnoses Date Provider Providers Copied on Encounter Office/outpat ient Visit, [facility], [address], [place], [place], [id number], [place] tel:[phone] [facility] No Information Moises Price. [address] [place], [place], [id number], [place]. tel:[phone] Referring Provider: Albert De Leon OD P, [address] [place], [address] . tel:[phone] Family History Family Member Type Diagnosis Age At Onset No Information Payers Payer name Insurance type Covered constitution party ID Authoriza tion(s) No Information Social History Type Description Quantity Date Captured Comments Sex Female Smoking Status No Information Chief Complaint And Reason For Visit No Information Reason For Referral Reason For Referral No Information History Of Present Illness Encounter Date Complaint History Of Prese nt Illness No Information Functional Status Date Functional Assessmen t No Information Instructions Date Instruction Additional Infor mation No Information Assessments Type Assessment Date No Information Patient Care Teams Name Effective Dates (start - stop) Status Members No Information
--- OUTSIDE RECORDS SUMMARY | 2019-03-20 01:00 | XMS_ITS | Encounter Summary ---
Author Organization [facility] Healthcare Address [address] [place] [id number] Care Team Providers Care Steam Tunnel Feeder Name Role Phone Sandra Milton Primary Care Pr ovider Reason for Visit * Diagnostic Imaging (Routine) - Pending Review Specialty Diagnoses / Procedures Referred By Ines portillo Referred To Contact Procedures Breast Imaging Screening Outside Reference Transcribed Order, Provider Referral ID Status Reason Start Date Expiration Date V isits Requested Visits Authorized [id number] Pending Review 05/18/2024 06/17/2025 1 1 Encounter Details Date Type Department Care Team (Late st Contact Info) Description 03/20/2019 Hospital Encounter [facility] [address] [place] [address] Social History Tobacco Use Types Packs/Day Years Used Date Smoking Tobacco: Never Smokeless Tobacco: Never Alcohol Use Standard Drinks/Week Comments Yes 2 (1 standard drink = 0.6 oz pur e alcohol) AUDIT-C Answer Date Recorded Q1: How often do you have a drink containing alc ohol? Monthly or less 08/08/2024 Q2: How many drinks containi ng alcohol do you have on a typical day when you are drinking? 1 or 2 08/08/2024 Q3: How often do you have si x or more drinks on one occasion? 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 No / Unsure 10/25/2019 9:28 AM CDT documented as of this encounter Functional Status * AUDIT-C Score Answer Date of Assessment Author 1 08/08/2024 3:45 PM CDT Nishant Shelton RN * Question Answer Date of Assessment Author Q1: How often do you have a drink containing alcohol? Monthly or less 08/08/2024 3:45 PM [place] Nickie Shelton RN Q2: How many drinks containing alcohol do you have on a typical day when you are drinking? 1 or 2 08/08/2024 3:45 PM [place] Nickie Shelton RN Q3: How often do you have six or more drinks on one occasion? Never 08/08/2024 3:45 PM CDT Nickie Shelton RN documented as of this encounter Plan of Treatment Not on file documented as of this encounter Goals Goal Patient Goal Type Associated Problems Recent Progress Patient-Stated? Author CCM Chronic Pain Care Plan Chronic Care Management Worsening( 3:41 PM CDT) Gordo Pizarro RN Note: Problem: Chronic Pain Goals: 1. Minimize further functional decline 2. Maximize quality of life 3. Control pain Strategies: - Activity/exercise program recommendation - Conservative stepwise pain medicine strategy with multi-disciplinary approach - Recommend healthy lifestyle strategies and compensatory methods as needed documented as of this encounter Procedures Procedure Name Priority Date/Time Associated Diagnosis Comments BREAST IMAGING MG SCREENING OUTSIDE REFERENCE Routine 03/20/2019 12:00 AM PARACHUTE MARKER documented in this encounter Results * Breast Imaging Screening Outside Reference (03/20/2019 12:00 AM PARACHUTE MARKER) Impressions [facility]MO[facility] - 05/18/2024 9:27 AM PARACHUTE MARKER These images are for Reference purposes only and have not been reviewed by [facility] Radiology. There will be no report generated by a [facility] Radiologist. Narrative [facility] - 05/18/2024 9:27 AM PARACHUTE MARKER EXAMINATION: Images For Reference Purposes Only us Provider Transcribed Order IMG MAMMO PROCEDURES Final Result [facility] documented in this encounter Visit Diagnoses Not on filedocumented in this encounter Care Teams Steam Tunnel Feeder Relationship Specialty Start Date End Date Sandra Milton PA PCP - General Physician Foreign Student Adviser Teacher 07/12/18 documented as of this encounter
--- OUTSIDE RECORDS SUMMARY | 2023-10-04 03:22 | XMS_ITS | Continuity of Care Document ---
Author Organization [facility] Address [address] [place] [address] Phone Care Team Providers Care Zoning Administrator Name Role Phone Andres Doyle MD Unavailable Unavailable Allergies, Adverse Reactions, Alerts Substance Reaction Status Criticality No Known Allergies Active No Inform ation Medications Medication Instructions Dosage Effective Dates (start - stop) Status Comments MONTELUKAST TAB 10MG TAKE 1 TABLET EVERY EVENING - Active ProAir HFA 90 mcg/actuation aerosol inhaler inhale 2 puff by inhalation route every 4 - 6 hours as needed - Active cetirizine 10 mg tablet take 1 tablet by oral route every evening 10 MG - Active losartan 50 mg tablet take 1 tablet by o ral route every day 50 MG - Active Vitamin D2 50,000 unit capsule take 1 capsule by oral route every week - Active Procedures Procedure Date HEALTH RISK ASSESSMENT, PATIENT-FOCUSED OFFICE [id number] HEALTH RISK ASSESSMENT, PATIENT-FOCUSED OFFICE [id number] HEALTH RISK ASSESSMENT, PATIENT-FOCUSED OFFICE [id number] BODY MASS INDEX DOCD SYST BP LT 130 MM HG DIAST BP < 80 MM HG RESPIRATORY FLOW VOLUME LOOP MOUTHPIECE HEALTH RISK ASSESSMENT, PATIENT-FOCUSED OFFICE [id number] BODY MASS INDEX DOCD SYST BP LT 130 MM HG DIAST BP < 80 MM HG PULMONARY SPIROMETRY, FUNCTION 20 MOUTHPIECE OFFICE [id number] BODY MASS INDEX DOCD SYST BP LT 130 MM HG DIAST BP 80-89 MM HG ALLERGY SKIN TESTS Advance Directives Directive Yes / No Effective Date File Name No Information Encounters Encounter Description Practice Location Reason(s) For Visit Diagnoses Date Provider Providers Copied on Encounter [facility], [address], [place], [place], [id number] , tel: [phone] [facility] [place] No Information 4 Vivek Campos. [address] [place] [address], [id number] , . tel: [phone] [facility], [address], [place], [place], [id number] , tel: [phone] [facility] [place] No Information 3 Vivek Campos. [address] [place] [address], [id number] , . tel: [phone] OFFICE YMVAZ-OLR-SV TAILED [facility], [address], [place], [place], [id number] , tel: [phone] [facility] [place] asthma (chief complaint) allergy f/u (chief complaint) Mild intermittent asthma, uncomplicatedAllergi c rhinitis due to Mexican house dust miteSeasonal allergic rhinitis due to pollenAllergic rhinitis due to animal (cat) (dog) hair and dander 2 Vivek Campos. [address] [place] [address], [id number] , . tel: [phone] Referring Provider: Andres Doyle, [address] [place] [address], [address] . tel:[phone] OFFICE YVNIF-KRP-NU TAILED [facility], [address], [place], [place], [id number] , tel: [phone] [facility] [place] asthma (chief complaint) Asthma-con trol (chief complaint) allergies (chief complaint) Mild intermittent asthma, uncomplicatedSeasona l allergic rhinitis due to pollenAllergic rhinitis due to Mexican house dust miteAllergic rhinitis due to animal (cat) (dog) hair and dander 1 Vivek Campos. [address], [id number] , . tel: [phone] Referring Provider: Neel Lucas3 [facility] [address], [place], [address]. tel:[phone] [facility], [address], [place], [place], [id number] , [place] tel: [phone] [facility] [place] asthma (chief complaint) Asthma-con trol (chief complaint) allergies (chief complaint) Mild intermittent asthma, uncomplicatedSeasona l allergic rhinitis due to pollenAllergic rhinitis due to Mexican house dust miteAllergic rhinitis due to animal (cat) (dog) hair and dander 0 Vivek Campos. [address], [id number] , [place]. tel: [phone] Referring Provider: Neel Lucas[address] [place] [address] [address], [place], [address]. tel:[phone] [facility]ICE [facility], [address], [place], [place], [id number] , [place] tel: [phone] [facility] [place] asthma (chief complaint) Asthma-con trol (chief complaint) inhalant allergies (chief complaint) Mild intermittent asthma, uncomplicatedSeasona l allergic rhinitis due to pollenAllergic rhinitis due to animal (cat) (dog) hair and danderAllergic rhinitis due to Mexican house dust mite 0 Vivek Campos. [address] [place] [address], [address], [id number] , . tel: [phone] Referring Provider: Neel Lucas3 [address] [facility] [address], [place], [address]. tel:[phone] OFFICE [id number]-DT MP-MED [facility], [address], [place], [place], [id number] , [place] tel: [phone] [facility] [place] exercise induced asthma (chief complaint) possible food allergy (chief complaint) Seasonal allergic rhinitis due to pollenAllergic rhinitis due to Mexican house dust miteAllergic rhinitis due to animal (cat) (dog) hair and danderExercise-induc ed asthma 9 Vivek Campos. [address] [facility], [facility] [address], [place], [place], [id number] , [place]. tel: [phone] Referring Provider: Sandra Milton, [address] [facility] [address], [place], [address]. tel:[phone] Family History Family Member Type Diagnosis Age At Onset Problem (finding) No family history of Al lergies Problem (finding) No family history of As thma Payers Payer name Insurance type Covered alliance party ID Josh adkins(s) [facility] ACCESS CHOICE [id number] Social History Type Description Quantity Date Captured Comments Sex Female Smoking Status No Information Chief Complaint And Reason For Visit No Information Reason For Referral Reason For Referral No Information History Of Present Illness Encounter Date Complaint History Of Prese nt Illness Comments: [facility]Last seen 03/12/21 (Telehealth) and before this on 01/07/20 History of exercise induced asthma. No prolonged cough with colds and sleeps well through the night. Med: Proair MDI prn No flu shot yet so had to take Tamiflu recently.No COVID shots. PMH:History of wheezing with exercise since 01/25 usually with heavy exertion. Had normal PFTs in past, but a Methacholine challenge at [facility] (05/16/19) - positive on 4th level and improved to normal after bronchodilator.No history for asthma as a child No GERD symptoms. Comments: Allerg ens: HOUSE DUST MITES, CAT, DOG, GRASS, RAGWEED/WEED, and TREE pollen (04/26/19).Meds: Uses Cetirizine 10 mg daily in growing seasons mainly. Has used Montelukast in the past too. Does not like to use nasal sprays. Started on Odactra sublingual immunotherapy daily on 05/23/19 and continues daily without difficulty (now almost 3 years)Has Auvi-Q at home for Odactra (children)Inside cat (since 2018) asthma allergy f/u asthma allergies Asthma-control Yanira was seen t gael for asthma management. Her asthma is classified as Mild Intermittent.Since Her last visit for asthma control on 01/07/2020, She has had asthma related:-hospitalizations: NO-ER/Urgent care visits: NO-oral steroids: NO-rescue inhaler use: YES-Missed school/work: NOAsthma Control Test score: 251. Unlimited activity: None of the time (5)2. Caused shortness of breath: Not at all (5)3. Interrupted sleep: Not at all (5)4. How often using rescue med: Not at all (5)5. Personal rating of control: Completely controlled (5)The asthma is Well Controlled.Environmental exposure/control:Smoker: NOSpirometry was last performed on 01/07/2020. asthma (comments) [facility].Last seen 01/07/20 and before this on 05/23/19Med: Brendan MDI prn usually just with exercise and has an up to date script.History of wheezing with exercise since 01/25 usually with heavy exertion. Had normal PFTs in past, but a Methacholine challenge at [facility] (05/16/19) - positive on 4th level and improved to normal after bronchodilator.No prior history for asthma. No GERD allergies (comments) Allergens: HOUSE DUST MITES, CAT, DOG, GRASS, RAGWEED/WEED, and TREE pollen (04/26/19).Meds: Uses Cetirizine 10 mg daily in growing seasons mainly. Was also using Montelukast 10 mg once daily earlier this year but then ran out and did not notice much trouble as a result while still on Cetirizine.Does not like to use nasal sprays, so no Nasacort AQ this past year. Started on Odactra sublingual immunotherapy daily on 05/23/19 and continues daily without difficulty (now almost 2 years)Has Auvi-Q at home for Odactra (children)Still has a cat (since 2019) asthma asthma (comments) Last seen 05/23, and before this on 04/26/19 (initial visit)Onset of wheezing with exercise since 01/25 usually with heavy exertion.Premedicating with the Proair now before exercise with good results. Had normal PFTs in past, but a Methacholine challenge at [facility] (05/16/19) - positive on 4th level and improved to normal after bronchodilator.No prior history for asthma. No GERD Asthma-control Yanira was seen t gael for asthma management. Her asthma is classified as Mild Intermittent.Since Her last visit for asthma control on 05/23/2019, She has had asthma related:-hospitalizations: NO-ER/Urgent care visits: NO-oral steroids: NO-rescue inhaler use: YES-Missed school/work: NOAsthma Control Test score: 251. Unlimited activity: None of the time (5)2. Caused shortness of breath: Not at all (5)3. Interrupted sleep: Not at all (5)4. How often using rescue med: Not at all (5)5. Personal rating of control: Completely controlled (5)The asthma is Well Controlled.Environmental exposure/control:Smoker: NOSpirometry was last performed on 05/23/2019. Results - WITHIN NORMAL LIMITS. allergies (comments) Allergens: HOUSE DUST MITES, CAT, DOG, GRASS, RAGWEED/WEED, and TREE pollen (04/26/19).Meds: Remains on Cetirizine, Montelukast, but no Nasacort AQ presently as not spending much time outside.Started on Odactra sublingual immunotherapy daily at last visit (05/23/19) and continues daily without difficulty.Has Auvi-Q at home for Odactra (children)Added a cat to household in 2019 allergies asthma Asthma-control Yanira was seen t gael for asthma management. Her asthma is classified as Mild Intermittent.She has had asthma related:-hospitalizations: NO-ER/Urgent care visits: NO-oral steroids: NO-rescue inhaler use: YES-Missed school/work: NOAsthma Control Test score: 171. Unlimited activity: Some of the time (3)2. Caused shortness of breath: 3-6 times a week (3)3. Interrupted sleep: Not at all (5)4. How often using rescue med: 2 or 3 times per week (3)5. Personal rating of control: Somewhat controlled (3)The asthma is Well Controlled.Environmental exposure/control:Smoker: NO asthma (comments) Last seen 04/08 01/25 (initial visit)Onset of wheezing with exercise since 01/25 usually with heavy exertion.Tried daughters inhaler and that seemed to help, and has been premedicating with the Proair now before exercise with good results. Had normal PFTs recently.Had Methacholine challenge at [facility] (05/16/19) - positive on 4th level and improved to normal after bronchodilator.No prior history for asthma. No LUDY.Meds: Montelukast 10 mg qd for allergy below. Proair MDI prn mainly before exercise. inhalant allergies (comments) Al lergens: HOUSE DUST MITES, CAT, DOG, GRASS, RAGWEED/WEED, and TREE pollen (04/26/19).Meds: Remains on Cetirizine and Montelukast as before. Added a trial of Nasacort AQ 1-2 puffs each nostril daily especially in ragweed season after last visitAdded a cat to house a few months ago. 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 Uses Cetirizine occ. for nasal congestion and rhinorrhea and added Montelukast the past 3-4 years in combination with good results on migraine frequency.Patient PlanReviewed HOUSE DUST MITE control measures: Keep pillows for only a year, mattress/boxspring <7 years. No feather or down filled bedding.Consider removing [id number]-[id number] carpet from bedroom.Lowest humidity possible indoors is ideal and should not be supplemented in the winter by humidifiers. Central air conditioning also reduces indoor humidity in the summer months.Discussed starting Odactra sublingual immunotherapy daily at last visitReviewed treatment and risks and would get first dose here in our office once filled. Will send in script for Epipen once approved for the Odactra.Consent signed for SLIT. inhalant allergies possible food allergy (comments) Concerned about beer now as her neighbor has been offering her different craft beers.After drinking one of these seems more bloated. No other obvious food history. No prior history for any food allergies. Weight gain.Also frequent BMs (with eating) and found on endoscopy a microscopic colitis. Started on Budesonide tablets with a tapering schedule the past 3 months now 3 mg qd this month.Seems to have helped with the symptoms. exercise induced ast hma (comments) Onset of wheezing with exercise since 01/25 usually with heavy exertion.Tried daughters inhaler and that seemed to help, and has been premedicating with the Proair now before exercise with good results. Had normal PFTs recently.Scheduled for Methacholine challenge at [facility] in 05/16/19No prior history for asthma. Added a cat to houseNo allergy history but skin tested in past (due to migraine history) and positive for Ragweed and HDM on 12/10/15. Uses Cetirizine occ. for nasal congestion and rhinorrhea and added Montelukast the past 3-4 years in combination with good results on migraine frequency.No LUDY. exercise induced asthma possible food allergy Functional Status Date Functional Assessmen t No Information Instructions Date Instruction Additional Infor mation Continue meds above especially in growing seasons for pollen allergy Related to Seasonal allergic rhinitis due to pollen No changes but would not replace cat in future if possible. Related to Allergic rhinitis due to animal (cat) (dog) hair and dander We reviewed appropri ate environmental control measures for your rhinitis.Please continue with your present nasal medications or treatment that includes finishing up the Odactra in April for 3 years now, along with Cetirizine 10 mg once daily and Montelukast 10 mg once daily. Call for increasing symptoms or difficulty with medications. Refills for Montelukast sent to [facility] Mail order pharmacy. Related to Allergic rhinitis due to Mexican house dust mite We spoke via [facility] [employer] for your visit todayPulmonary functions performed today with good effort were WITHIN NORMAL LIMITS for age and height. Asthma Control Test (normal >19) = 23. Asthma overall stable without daily medications. We discussed the use of rescue medication (Proair inhaler). Refilled at local pharmacy. Please call for the frequent use of your rescue inhaler (beyond that discussed above) or difficulties with your asthma causing frequent night time awakenings, difficulties with your ability to exercise, or prolonged cough associated with viral colds. Related to Mild intermittent asthma, uncomplicated Medication management Would not replace th e indoor cat in the future. Related to Allergic rhinitis due to animal (cat) (dog) hair and dander Replace bed pillows annually and discardReplace mattress every 8 years.Minimize indoor carpeting as much as possible. Lowest indoor humidity possible all year. Related to Allergic rhinitis due to Mexican house dust mite We reviewed appropri ate environmental control measures for your rhinitis.Please continue with your present nasal medications or treatment that includes Odactra once daily under the tongue for another year (started 05/28 so almost finished with 2 years). Continue Cetirizine 10mg once daily until a garcia, then as needed for the indoor cat allergy. Add back the Montelukast if increasing allergy symptoms and again next spring daily for tree pollen. Call for increasing symptoms or difficulty with medications. Refills provided or call when more are needed.Auvi-Q in the home for any serious reactions to the Odactra. Related to Seasonal allergic rhinitis due to pollen We spoke via [facility] [employer] for your visit todayPulmonary functions performed today with good effort were WITHIN NORMAL LIMITS for age and height. Asthma Control Test (normal >19) = 25. Asthma overall stable without daily medications. We discussed the use of rescue medication (Proair inhaler). Please call for the frequent use of your rescue inhaler (beyond that discussed above) or difficulties with your asthma causing frequent night time awakenings, difficulties with your ability to exercise, or prolonged cough associated with viral colds. Related to Mild intermittent asthma, uncomplicated Medication management Medication management Replace bed pillows annually Rel ated to Allergic rhinitis due to Mexican house dust mite Continue to avoid in door dog, and minimize indoor cat dander exposures. Related to Allergic rhinitis due to animal (cat) (dog) hair and dander We reviewed appropri ate environmental control measures for your rhinitis.Please continue with your present nasal medications or treatment that includes Odactra once daily under the tongue, Montelukast 10 mg once daily, and Cetirizine 10mg once daily. Add Nasacort AQ if increasing seasonal allergy symptoms. Call for increasing symptoms or difficulty with medications. Refills provided or call when more are needed. Related to Seasonal allergic rhinitis due to pollen Pulmonary functions performed today with good effort were WITHIN NORMAL LIMITS for age and height. Asthma Control Test (normal >19) = 25. Asthma overall stable without daily medications. We discussed the use of rescue medication (Proair inhaler). Please call for the frequent use of your rescue inhaler (beyond that discussed above) or difficulties with your asthma causing frequent night time awakenings, difficulties with your ability to exercise, or prolonged cough associated with viral colds. Related to Mild intermittent asthma, uncomplicated Medication management Tolerated first dose of Odactra SLIT in the office todayHad a little tickle cough that did not involve chest and some itching in throat that resolved without treatment.Has Auvi - Q in purse and will keep available at time of dosing and for a few hours afterwards from now on. Plan to continue Odactra daily for 3 years. Remain on Cetirizine 10 mg each morning.Replace bed pillows annually Related to Allergic rhinitis due to Mexican house dust mite Avoid danders if pos sibleNew cat in the household may be a problem. Related to Allergic rhinitis due to animal (cat) (dog) hair and dander We reviewed appropri ate environmental control measures for your rhinitis.Please continue with your present nasal medications or treatment that includes Odactra daily, Cetirizine 10 mg daily and Montelukast 10 mg once daily. In the pollen seasons, add Nasacort AQ 1-2 puffs each nostril Call for increasing symptoms or difficulty with medications. Refills provided or call when more are needed. Related to Seasonal allergic rhinitis due to pollen Pulmonary functions performed today with good effort were WITHIN NORMAL LIMITS for age and height. Asthma Control Test (normal >19) = 17. Asthma overall stable without daily medications. We discussed the use of rescue medication (Proair) and an Asthma Action Plan. Please call for the frequent use of your rescue inhaler (beyond that discussed above) or difficulties with your asthma causing frequent night time awakenings, difficulties with your ability to exercise, or prolonged cough associated with viral colds. Related to Mild intermittent asthma, uncomplicated Medication management Medication management Asthma is overall st able. Continue with present daily controller medication (Montelukast 10 mg once daily) unchanged. I reviewed the benefits and risks including side effects of this medication. We discussed the use of rescue medication (Proair) and an Asthma Action Plan. Please call for the frequent use of your rescue inhaler (beyond that discussed above) or difficulties with your asthma causing frequent night time awakeningsSend results of upcoming Methacholine challenge to me if possibleCall for additional asthma medications at that time. Remain on Montelukast but may need to halt briefly before the challenge. Related to Exercise-induced asthma Consider avoidance m easures but basically no more indoor cats. Related to Allergic rhinitis due to animal (cat) (dog) hair and dander Reviewed HOUSE DUST MITE control measures: Keep pillows for only a year, mattress/boxspring <7 years. No feather or down filled bedding.Consider removing twyd-do-hyar carpet from bedroom.Lowest humidity possible indoors is ideal and should not be supplemented in the winter by humidifiers. Central air conditioning also reduces indoor humidity in the summer months.Discussed starting Odactra sublingual immunotherapy daily Reviewed treatment and risks.First dose here in our office once filled. Will send in script for Epipen once you have approval for the Odactra to keep at home for any reactionsConsent signed for SLIT. Related to Allergic rhinitis due to Mexican house dust mite Allergy skin testing was successfully performed today.You reacted to HOUSE DUST MITES, CAT, DOG, GRASS, RAGWEED/WEED, and TREE pollen. You did not react to common food allergens or most molds. Reviewed POLLEN Avoidance Measures: Minimize outside exposure during peak pollen count days (you can monitor pollen counts at http://www.aaaai.org/global/nab-pollen -counts.aspx or http://pollen.aaaai.org/)Pollen counts are typically lower on rainy, cloudy or windless days. At the end of a long day of outside exposure, come in to air conditioning if possible, remove and launder clothing, and shower/shampoo to remove as much pollen as possible before going to bed. Keep windows at home and in car closed during your pollen seasons. Avoid outdoor activities that increase exposure such as mowing, power trimming/blowing and consider wearing a new filtering paper mask if these jobs are unavoidable. Stay inside while others are performing these outside activities if possible.Meds: continue with Cetirizine and Montelukast as before. Add a trial of Nasacort AQ 1-2 puffs each nostril daily especially in ragweed season. In the future (2019) will prepare for ragweed season by starting Ragwitek sublingual immunotherapy Reviewed and will see for first dose in October 2019. Related to Seasonal allergic rhinitis due to pollen Medication management Assessments Type Assessment Date No Information Patient Care Teams Name Effective Dates (start - stop) Status Members No Information
--- OUTSIDE RECORDS SUMMARY | 2025-02-22 08:12 | XMS_ITS | Clinical Summary ---
[facility] Organization [facility] Address [address] [facility] Attn: Epic Prelude ADT MICHAEL CRAFT [id number] Care Team Providers Care Electronics Manufacturer Name Role Phone Unavailable Primary Care Provider Unavailabl e Medications tirzepatide, weight loss, (Zepbound) 10 mg/0.5 mL Pen Injector Inject 10 mg (0.5 mL) under the skin every 7 days. 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 2 mL 1 06/23/2024 3:07 PM FILLER SHREDDER HELPER 5 Active ergocalciferol (VITAMIN D2) 50,000 unit capsule Take 1 Capsule (50,000 Units) by mouth every 7 days. 12 Capsule 01/26/2025 2:21 PM CDT 5 Active semaglutide, weight loss, (Wegovy) 0.5 mg/0.5 mL Pen Injector INJECT 0.5MG SUBCUTANEOUSLY ONCE A WEEK 2 mL 12/30/2024 1:06 PM CDT 5 Active semaglutide, weight loss, (Wegovy) 1 mg/0.5 mL Pen Injector Inject 0.5 mL (1 mg) by subcutaneous injection every 7 days. 2 mL 01/26/2025 2:21 PM CDT 5 Active semaglutide, weight loss, (Wegovy) 1.7 mg/0.75 mL Pen Injector Inject 0.75 mL (1.7 mg) by subcutaneous injection every 7 days. 3 mL 02/20/2025 7:48 PM CDT 5 Active rimegepant (Nurtec ODT) 75 mg Tablet, Rapid Dissolve Take one tablet by mouth every 24 hours as needed for migraine 8 Tablet 4 02/20/2025 7:48 PM CDT Active Social History Tobacco Use Types Packs/Day Years [...] 2022 INFLUENZA VACCINE (#1) 2024 Insurance RX [employer] Age of Learning RX 24x7 Learning Commercial
--- OUTSIDE RECORDS SUMMARY | 2025-02-22 08:12 | XMS_ITS | Clinical Summary ---
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 Active levonorgestreL (Mirena) IUD Mirena 20 mcg/24 hours (5 yrs) 52 mg intrauterine device Take 1 device by intrauterine route. Active multivitamin capsule Take 1 capsule by mouth daily Active adapalene-benzo yl peroxide 0.1-2.5 % gel with pump adapalene 0.1 %-benzoyl peroxide 2.5 % topical gel with pump APPLY A THIN LAYER TO AFFECTED AREA ON FACE AND/OR UPPER TRUNK AFTER WASHING ONCE DAILY NEEDED Active losartan (COZAAR) 100 mg tablet Take 1 tablet (100 mg total) by mouth daily Active ergocalciferol (VITAMIN D) 50,000 unit capsule Take 1 capsule (50,000 Units total) by mouth once a week 4 Active ketoconazole (NIZORAL) 2 % cream APPLY TO FOOT/HAND TWICE A DAY Active progesterone (PROMETRIUM) 100 mg capsule 4 Active nortriptyline (PAMELOR) 25 mg capsuleIndicati ons:Neuropathic pain Take 2 capsules (50 mg total) by mouth nightly 180 capsule 3 5 06/06/19 26 Active busPIRone (BUSPAR) 10 mg tablet Take 1 tablet (10 mg total) by mouth daily 5 Active amoxicillin-cla vulanate (AUGMENTIN) 875-125 mg per tablet Take 1 tablet (875 mg of amoxicillin total) by mouth 5 Active Zepbound 15 mg/0.5 mL pen injector 5 Active tiZANidine (ZANAFLEX) 4 mg tabletIndicatio ns:Neuropathic pain,Muscle spasm Take 1 tablet (4 mg total) by mouth every 8 (eight) hours as needed for muscle spasms 60 tablet 3 5 Active Active Problems Problem Noted Date Diagnosed Date Neuropathic pain 04/05/2023 Muscle spasm 04/05/2023 Migraine 09/16/2022 09/27/2022 Muscle tension pain 07/13/2022 09/27/2022 Pain of right calf 07/13/2022 09/27/2022 Herpes labialis 06/15/2022 09/27/2022 Deviated nasal septum 10/29/2021 09/27/2022 Hypertrophy of nasal turbinates 10/29/2021 09/27/2022 Subclinical hypothyroidism 10/01/202109/27 Acne 09/15/2021 09/27/2022 Anxiety 09/15/2021 09/27/2022 Snoring 09/15/2021 09/27/2022 Weight gain 09/15/2021 09/27/2022 Breasts asymmetrical 11/07/2019 Cyst of ovary 11/07/2019 Dysmenorrhea 11/07/2019 Irregular periods 11/07/2019 Mechanical complication of i ntrauterine contraceptive device 11/07/2019 Pain in pelvis 11/07/2019 Vaginitis 11/07/2019 Osteochondral lesion of talar dome 10/12/2019 Overview (10/12/2019): Added automatically from request for surgery [id number] Peroneal tendinitis of right lower extremity 09/2019 Overview (10/12/2019): Added automatically from request for surgery [id number] Benign essential hypertension 01/18/2019 Arthralgia of ankle 06/23/2011 Surgical History Surgery Date Site/Laterality Comments APPENDECTOMY OOPHORECTOMY SECTION SINUS SURGERY ABDOMINOPLASTY ANKLE SURGERY 10/26/2019 Right Open Ankle: Peroneal Tendon Debridement Medical History Medical History Date Comments Migraine Allergic rhinitis History of multiple miscarriages DVT (deep venous thrombosis) 2018 pos t-op, left groin, after tummy tuck, now off blood thinners X 1 year Peripheral neuropathy tyrone hands, carpal tunnel PONV (postoperative nausea and vomiting) Hypertension well controlled with meds Asthma exercise induced asthma Headache Right foot pain Family History Medical History Relation Name Comments Alcohol abuse Father Arthritis Father COPD Father Cancer Father Hypertension Father Prostate cancer Father Arthritis Mother Breast cancer Mother Cancer Mother Depression Mother Diabetes Mother Heart disease Mother Hypertension Mother Prostate cancer Paternal Grandfather Heart disease Paternal Grandmother Anemia Sister Relation Name Status Comments Father Mother Paternal Grandfather Paternal Grandmother Sister Social History Tobacco Use Types Packs/Day Years Used Date Smoking Tobacco: Never Smokeless Tobacco: Never Tobacco Cessation:Counseling Given: Not Answered Alcohol Use Standard Drinks/Week Comments Yes 2 [...] on file Legal Sex 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 Gender Identity Female 12/22/2020 10:19 PM CDT Sexual Orientation Straight 12/22/2020 10 :19 PM CDT 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, 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 Not on file Not on file Not on fi le Obstetrics History Para Term AB IAB SAB Ectopic Multiple Livin g Live Births 5 1 1 4 1 Date Outcome GA Total Labor Labor/2nd/3rd Weight Sex Type Anes PTL Maye A1 A5 Name Clin 009 Term 40w0 d 3.884 kg (8 lb 9 oz) M 06/2009 AB 6w0d 11/2009 AB 8w0d Comments:D&C 09/2010 AB 10w0 d 011 Ectopic 7w3d Last Filed Vital Signs Vital Sign Reading Time Taken Comments Blood Pressure 124/83 06/13/2024 3:10 PM SCHOOL BOAT DRIVER Pulse 91 06/13/2024 3:10 PM SCHOOL BOAT DRIVER Temperature 36.6 C (97.8 F) 06/13/2024 3:10 PM SCHOOL BOAT DRIVER Respiratory Rate 8 06/13/2024 3:10 PM SCHOOL BOAT DRIVER Oxygen Saturation 100% 06/13/2024 3:10 PM SCHOOL BOAT DRIVER Inhaled Oxygen Concentration - - Weight 100.7 kg (222 lb) 06/13/2024 3:10 PM SCHOOL BOAT DRIVER Height 177.8 cm (5' 10) 06/13/2024 3:10 PM SCHOOL BOAT DRIVER Body Mass Index 31.85 06/13/2024 3:10 PM SCHOOL BOAT DRIVER Plan of Treatment Health Maintenance Due Date Last Done Comments Cervical Cancer Screening 1977 Colon Cancer Screening-Colonoscopy 1977 Depression Screening 1977 Hepatitis C Screening 1977 DTaP/Tdap/Td Vaccine (1 - Tdap) 02/14/1988 Hepatitis B Screening 1995 Regular Well Visit/Exam 18-64 1995 Covid-19 Vaccine (3 - 2024-2 6 season) 2025 09/03/2020, 08/12/2020 Influenza Vaccine (#1) 2025 Breast Cancer Screening-Mammogram 05/21/2025 05/21/2024 Pneumococcal vaccine <65 Aged Out No longer eligible based on patient's age to complete this topic Goals Goal Patient Goal Type Associated Problems Recent Progress Patient-Stated? Author CCM Chronic Pain Care Plan Chronic Care Management Worsening( 3:41 PM CDT) Gordo Pizarro, EMMY Note: Problem: Chronic Pain Goals: 1. Minimize further functional decline 2. Maximize quality of life 3. Control pain Strategies: - Activity/exercise program recommendation - Conservative stepwise pain medicine strategy with multi-disciplinary approach - Recommend healthy lifestyle strategies and compensatory methods as needed Procedures Procedure Name Priority Date/Time Associated Diagnosis Comments SCREENING MAMMOGRAM BILATERAL W LENIN Schedule Routine, Read Routine (OP Routine) 05/21/2024 7:47 AM SCHOOL BOAT DRIVER Screening mammogram, encounter for from Last 3 Months or Most Recently Relevant to Health Maintenance Results * Screening Mammogram Bilateral W Lenin (05/21/2024 7:47 AM SCHOOL BOAT DRIVER) Anatomical Region Laterality Modality Breast Bilateral Mammography Addenda Addendum by Jenna Jarvis MD on 07/04/2024 2:32 PM SCHOOL BOAT DRIVER ADDENDED REPORT 07/04/2024 at 14:32:34 Addendum: The present examination has been compared to prior imaging studies performed at [facility] on 03/20/2019, 03/24/2021, 03/26/2022 and 04/27/2023. Mammogram Findings: There is no suspicious abnormality in either breast. There are no significant changes from the prior study. Impression: There is no mammographic evidence of malignancy. Annual screening mammography is recommended. OVERALL FINAL ASSESSMENT: BI-RADS CATEGORY 1: Negative. THIS REPORT HAS BEEN ADDENDED Narrative 05/21/2024 1:51 PM SCHOOL BOAT DRIVER ORIGINAL REPORT Mammogram Technique: Bilateral Digital Breast Tomosynthesis, Bilateral C-view 2D Screening mammogram. Views obtained: bilateral craniocaudal and bilateral mediolateral oblique. Computer Aided Detection was performed. Mammogram Findings: No prior imaging studies are available for comparison. There are scattered areas of fibroglandular density. There is no suspicious abnormality in either breast. Impression: There is no mammographic evidence of malignancy. Annual screening mammography is recommended. OVERALL FINAL ASSESSMENT: BI-RADS CATEGORY 1: Negative. Procedure Note Jenna Jarvis MD - 07/04/2024 ORIGINAL REPORT Mammogram Technique: Bilateral Digital Breast Tomosynthesis, Bilateral C-view 2D Screening mammogram. Views obtained: bilateral craniocaudal and bilateral mediolateral oblique. Computer Aided Detection was performed. Mammogram Findings: No prior imaging studies are available for comparison. There are scattered areas of fibroglandular density. There is no suspicious abnormality in either breast. Impression: There is no mammographic evidence of malignancy. Annual screening mammography is recommended. OVERALL FINAL ASSESSMENT: BI-RADS CATEGORY 1: Negative. us Self Screening Mammogram IMG MAMMO PROCEDURES Ed ited Result - Final from Last 3 Months or Most Recently Relevant to Health Maintenance Insurance [facility] [employer] CHOICE ANTHEM ACCESS CHOICE ANTHEM ACCESS CHOICE Care Teams Auto Parts Salesperson Relationship Specialty Start Date End Date Sandra Milton PA PCP - General Physician Cap Lining Machine Operator 07/12/18 Samson Nassar Jr., DPM Referring Physician Podiatry 08/05/22
--- OUTSIDE RECORDS SUMMARY | 2025-02-22 08:12 | XMS_ITS | Clinical Summary ---
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 HPV 2007 Mammogram Screening 2017 COVID-19 Vaccine (2024-2 6 season) 2025 09/03/2020, 08/12/2020 Influenza Adult (#1) 2025 Meningococcal B Vaccine Aged Out No l [...] patient's age to complete this [place] [address] [address] [facility] Care Teams Seedling Sorter Relationship Specialty Start Date End Date Sandra Milton PA PCP - General PHYSICIAN CLIENT SERVICES ADMINISTRATOR 10/10/20
--- OUTSIDE RECORDS SUMMARY | 2025-02-22 08:12 | XMS_ITS | Data Portability ---
Author Organization [facility], Main Office Address [address] [place] [address] Assessment No assessment recorded. Plan of Treatment Reminders Order Date Submit Date Provider Last Modified By Organization Details Last Modified Time Details Appointments None recorded. Lab TSH + free T4, serum 2022 023 [facility], [address], [address], [place], [address], 3 19:58:35 CMP, serum or plasma 2022 023 [facility], [address], [address], [place], [address], 3 19:58:38 CBC w/ auto diff 2022 023 [facility], [address], [place], [address], 3 19:58:39 lipid panel, serum 2022 023 [facility], [address], [place], [address], 3 19:58:37 HbA1c (hemoglobin A1c), blood 2022 023 [facility], [address], [place], [address], 3 19:58:39 insulin, serum 2022 023 [facility], [address], [place], [address], 3 19:58:40 Referral None recorded. Procedures None recorded. Surgeries septoplasty (SURG) 2022 022 [id number] [id number] Not available 3 09:19:35 Imaging US, duplex, venous, lower extremity, unilateral 2022 023 [facility] (Imaging), [address], [place], [address], 3 17:50:33 Medication Orders Nurtec ODT 75 mg disintegrat ing tablet 2022 023 [id number], [address] [place], [address], 3 13:13:43 Mounjaro 2.5 mg/0.5 mL subcutaneou s pen injector 2022 023 [email or web address] [facility], [address] [facility], [place], [address], 3 12:31:55 Soma 350 mg tablet 2022 023 [email or web address] 4 [facility]acy #[id number], [address] [place], [address], 3 12:29:41 Patient TargetsNo targets recorded. Patient InstructionsNo instructions recorded. Reason for Referral None Reported. Results Created Date Observation Date Name Description Value Unit Range Abnormal Flag Note LastModifiedBy Organization Detail LastModifiedTime 10/27/19 22 10/27/2021 VITAM IN B12/F OLATE , SERUM PANEL vitamin B12 941 pg/mL 200-11 00 normal Not Available [facility] [address] , [place], [address], 10/27/2021 03:14:01 10/27/19 22 10/27/2021 VITAM IN B12/F OLATE , SERUM PANEL folate, serum 15.7 NG/mL normal Refer ence Range Low: <3.4 Borde rline : 3.4-5 .4 Hilda l: >5.4 Not Available [address], [address], 10/27/2021 03:14:01 10/27/19 22 10/27/2021 TSH+F REE T4 TSH 1.49 mIU/L normal Refer ence Range > or = 20 Years 0.40- 4.50 Pregn brina Range s First trime ster 0.26- 2.66 Secon d trime ster 0.55- 2.73 Third trime ster 0.43- 2.91 Not Available [address], [address], 10/27/2021 03:14:00 10/27/19 22 10/27/2021 TSH+F REE T4 T4, free 1.1 NG/dL 0.8-1. 8 normal Not Available [address], [address], 10/27/2021 03:14:00 10/27/19 22 10/27/2021 IRON, TIBC AND JAMAL TIN PANEL iron, total 118 mcg/d L 40-190 normal Not Available [address], [address], 10/27/2021 03:13:59 10/27/19 22 10/27/2021 IRON, TIBC AND JAMAL TIN PANEL iron binding capacity 320 mcg/d L_(ca lc) 250-45 0 normal Not Available [address], [address], 10/27/2021 03:13:59 10/27/19 22 10/27/2021 IRON, TIBC AND JAMAL TIN PANEL % saturation 37 %_(ca lc) 16-45 normal Not Available [address], [address], 10/27/2021 03:13:59 10/27/19 22 10/27/2021 IRON, TIBC AND JAMAL TIN PANEL ferritin 24 NG/mL 16-232 normal Not Available [address], [address], 10/27/2021 03:13:59 09/25/19 23 09/25/2022 TSH+F REE T4 TSH 3.27 mIU/L normal Refer ence Range > or = 20 Years 0.40- 4.50 Pregn brina Range s First trime ster 0.26- 2.66 Secon d trime ster 0.55- 2.73 Third trime ster 0.43- 2.91 Not Available [address], [address], 09/25/2022 19:58:35 09/25/19 23 09/25/2022 TSH+F REE T4 T4, free 1.2 NG/dL 0.8-1. 8 normal Not Available [address], [address], 09/25/2022 19:58:35 09/25/19 23 09/25/2022 LIPID PANEL WITH RATIO S cholesterol, total 172 mg/dL <200 normal Not Available [address], [address], 09/25/2022 19:58:37 09/25/19 23 09/25/2022 LIPID PANEL WITH RATIO S HDL cholesterol 50 mg/dL > or = 50 normal Not Available [address], [address], 09/25/2022 19:58:37 09/25/19 23 09/25/2022 LIPID PANEL WITH RATIO S triglyceride s 165 mg/dL <150 high Not Available [address], [address], 09/25/2022 19:58:37 09/25/19 23 09/25/2022 LIPID PANEL [...] 310(1 9): 2061- 2068 (http ://ed ucati on.[employer]. com/f aq/FA Q164) Not Available [facility] [address] [place], [address], 09/25/2022 19:58:37 09/25/1909/25/2022 LIPID PANEL WITH RATIO S chol/HDLC ratio 3.4 (calc ) <5.0 normal Not Available [facility] [address] [place], [address], 09/25/2022 19:58:37 09/25/1909/25/2022 LIPID PANEL WITH RATIO S LDL/HDL ratio 1.9 (calc ) Below avera ge Risk: <2.34 [place] ge Risk: 2.35- 4.12 Moder ate Risk: 4.13- 5.56 High Risk: >5.57 Not Available [facility] [address] [place], [address], 09/25/2022 19:58:37 09/25/1909/25/2022 LIPID PANEL WITH RATIO S non HDL cholesterol 122 mg/dL _(mira c) <130 normal For patie nts with diabe stewart plus 1 major ASCVD risk facto r, treat ing to a non-H DL-C goal of <100 mg/dL (LDL- C of <70 mg/dL ) is consi маринаd a mai avalos optio n. Not Available [facility] [address] [place], [address], 09/25/2022 19:58:37 09/25/19 23 09/25/2022 COMPR EHENS EDILBERTO METAB OLIC PANEL glucose 94 mg/dL 65-99 normal Fasti ng refer ence inter itzel Not Available [facility] [address] [place], [address], 09/25/2022 19:58:38 09/25/19 23 09/25/2022 COMPR EHENS EDILBERTO METAB OLIC PANEL urea nitrogen (BUN) 14 mg/dL 7-25 normal Not Available [address] [address] [place], [address], 09/25/2022 19:58:38 09/25/19 23 09/25/2022 COMPR EHENS EDILBERTO METAB OLIC PANEL creatinine 1.28 mg/dL 0.50-0 .99 high Not Available [address] [address] [place], [address], 09/25/2022 19:58:38 09/25/19 23 09/25/2022 COMPR EHENS [...] kdoqi /gfr% 5Fcal culat or Not Available [facility] [address] [address] [place], [address], 09/25/2022 19:58:38 09/25/19 23 09/25/2022 COMPR EHENS EDILBERTO METAB OLIC PANEL BUN/creatini ne ratio 11 (calc ) 6-22 normal Not Available [address] [address] [place], [address], 09/25/2022 19:58:38 09/25/19 23 09/25/2022 COMPR EHENS EDILBERTO METAB OLIC PANEL sodium 139 mmol/ L 135-14 6 normal Not Available [address], [address], 09/25/2022 19:58:38 09/25/19 23 09/25/2022 COMPR EHENS EDILBERTO METAB OLIC PANEL potassium 4.1 mmol/ L 3.5-5. 3 normal Not Available [address], [address], 09/25/2022 19:58:38 09/25/19 23 09/25/2022 COMPR EHENS EDILBERTO METAB OLIC PANEL chloride 106 mmol/ L 98-110 normal Not Available [address], [address], 09/25/2022 19:58:38 09/25/19 23 09/25/2022 COMPR EHENS EDILBERTO METAB OLIC PANEL carbon dioxide 26 mmol/ L 20-32 normal Not Available [address], [address], 09/25/2022 19:58:38 09/25/19 23 09/25/2022 COMPR EHENS EDILBERTO METAB OLIC PANEL calcium 8.9 mg/dL 8.6-10 .2 normal Not Available [address], [address], 09/25/2022 19:58:38 09/25/19 23 09/25/2022 COMPR EHENS EDILBERTO METAB OLIC PANEL protein, total 6.3 g/dL 6.1-8. 1 normal Not Available [address], [address], 09/25/2022 19:58:38 09/25/19 23 09/25/2022 COMPR EHENS EDILBERTO METAB OLIC PANEL albumin 4.0 g/dL 3.6-5. 1 normal Not Available [address] [address] [place], [address], 09/25/2022 19:58:38 09/25/19 23 09/25/2022 COMPR EHENS EDILBERTO METAB OLIC PANEL globulin 2.3 g/dL_ (calc ) 1.9-3. 7 normal Not Available [address], [address], 09/25/2022 19:58:38 09/25/19 23 09/25/2022 COMPR EHENS EDILBERTO METAB OLIC PANEL albumin/glob ulin ratio 1.7 (calc ) 1.0-2. 5 normal Not Available [address], [address], 09/25/2022 19:58:38 09/25/19 23 09/25/2022 COMPR EHENS EDILBERTO METAB OLIC PANEL bilirubin, total 1.2 mg/dL 0.2-1. 2 normal Not Available [address] [address] [place], [address], 09/25/2022 19:58:38 09/25/19 23 09/25/2022 COMPR EHENS EDILBERTO METAB OLIC PANEL alkaline phosphatase 58 U/L 31-125 normal Not Available [address] [address] [place], [address], 09/25/2022 19:58:38 09/25/19 23 09/25/2022 COMPR EHENS EDILBERTO METAB OLIC PANEL AST 14 U/L 10-35 normal Not Available [address], [address], 09/25/2022 19:58:38 09/25/19 23 09/25/2022 COMPR EHENS EDILBERTO METAB OLIC PANEL ALT 14 U/L 6-29 normal Not Available [address], [address], 09/25/2022 19:58:38 09/25/19 23 09/25/2022 HEMOG LOBIN [...] Care in Diabe stewart(A DA). Not Available [facility] [address] [address] [place], [address], 09/25/2022 19:58:39 09/25/19 23 09/25/2022 CBC (INCL UDES DIFF/ PLT) white blood cell count 6.4 thous and/u L 3.8-10 .8 normal Not Available [facility] [address] [address] [place], [address], 09/25/2022 19:58:39 09/25/19 23 09/25/2022 CBC (INCL UDES DIFF/ PLT) red blood cell count 4.67 shan on/uL 3.80-5 .10 normal Not Available [facility] [address] [address] [place], [address], 09/25/2022 19:58:39 09/25/19 23 09/25/2022 CBC (INCL UDES DIFF/ PLT) hemoglobin 14.6 g/dL 11.7-1 5.5 normal Not Available [address], [address], 09/25/2022 19:58:39 09/25/19 23 09/25/2022 CBC (INCL UDES DIFF/ PLT) hematocrit 43.4 % 35.0-4 5.0 normal Not Available [address], [address], 09/25/2022 19:58:39 09/25/19 23 09/25/2022 CBC (INCL UDES DIFF/ PLT) MCV 92.9 fL 80.0-1 00.0 normal Not Available [address], [address], 09/25/2022 19:58:39 09/25/19 23 09/25/2022 CBC (INCL UDES DIFF/ PLT) MCH 31.3 pg 27.0-3 3.0 normal Not Available [address], [address], 09/25/2022 19:58:39 09/25/19 23 09/25/2022 CBC (INCL UDES DIFF/ PLT) MCHC 33.6 g/dL 32.0-3 6.0 normal Not Available [address], [address], 09/25/2022 19:58:39 09/25/19 23 09/25/2022 CBC (INCL UDES DIFF/ PLT) RDW 13.0 % 11.0-1 5.0 normal Not Available [address], [address], 09/25/2022 19:58:39 09/25/19 23 09/25/2022 CBC (INCL UDES DIFF/ PLT) platelet count 295 thous and/u L 140-40 0 normal Not Available [address], [address], 09/25/2022 19:58:39 09/25/19 23 09/25/2022 CBC (INCL UDES DIFF/ PLT) MPV 9.4 fL 7.5-12 .5 normal Not Available [address], [address], 09/25/2022 19:58:39 09/25/19 23 09/25/2022 CBC (INCL UDES DIFF/ PLT) absolute neutrophils 3584 cells /uL 1500-7 800 normal Not Available [address], [address], 09/25/2022 19:58:39 09/25/19 23 09/25/2022 CBC (INCL UDES DIFF/ PLT) absolute lymphocytes 2150 cells /uL 850-39 00 normal Not Available [address], [address], 09/25/2022 19:58:39 09/25/19 23 09/25/2022 CBC (INCL UDES DIFF/ PLT) absolute monocytes 512 cells /uL 200-95 0 normal Not Available [address], [address], 09/25/2022 19:58:39 09/25/19 23 09/25/2022 CBC (INCL UDES DIFF/ PLT) absolute eosinophils 122 cells /uL 15-500 normal Not Available [address], [address], 09/25/2022 19:58:39 09/25/19 23 09/25/2022 CBC (INCL UDES DIFF/ PLT) absolute basophils 32 cells /uL 0-200 normal Not Available [address], [address], 09/25/2022 19:58:39 09/25/19 23 09/25/2022 CBC (INCL UDES DIFF/ PLT) neutrophils 56 % normal Not Available [address], [place], [address], 09/25/2022 19:58:39 09/25/19 23 09/25/2022 CBC (INCL UDES DIFF/ PLT) lymphocytes 33.6 % normal Not Available [facility] [address], [address], 09/25/2022 19:58:39 09/25/19 23 09/25/2022 CBC (INCL UDES DIFF/ PLT) monocytes 8.0 % normal Not Available [facility] [address], [address], 09/25/2022 19:58:39 09/25/19 23 09/25/2022 CBC (INCL UDES DIFF/ PLT) eosinophils 1.9 % normal Not Available [facility] [address], [address], 09/25/2022 19:58:39 09/25/19 23 09/25/2022 CBC (INCL UDES DIFF/ PLT) basophils 0.5 % normal Not Available [facility] [address], [address], 09/25/2022 19:58:39 09/25/19 23 09/25/2022 INSUL IN [...] Diagn ostic s in 2021. Not Available [facility] [address], [address], 09/25/2022 19:58:40 03/31/20 22 03/26/2022 MAMMO , scree theresa, digit al, bilat eral No observ ation record ed. [id number] [facility] [address], [place], [address], 07/07/2022 09:19:37 07/14/19 23 07/13/2022 US, itz x, reilly s, lower extre mity, unila teral No observ ation record ed. [facility] (Imaging) [address], [place], [address], 07/13/2022 17:50:33 Result Notes None recorded. Problems Name Problem SNOMED Code Status Onset Date Resolution Date Notes Provider Name and Address Organization Details Recorded Time Dysmenorrh ea 436504807 Active Not Available [facility] 3 09:16:54 Mechanical complicati on of intrauteri ne contracept edilberto device 879182690 Active Not Available [facility] 3 09:16:55 Breasts asymmetric al 818373232 Active Not Available [facility] 3 09:16:55 Pain in pelvis 72945887 Active Not Available [facility] 3 09:16:55 Vaginitis 16651905 Active Not Available [facility] 3 09:16:55 Hypertensi ve disorder 86316166 Active Not Available [facility] 3 09:16:55 Essential hypertensi on 63368134 Active Not Available [facility] 3 09:16:55 Cyst of ovary 61258530 Active Not Available [facility] 3 09:16:55 Irregular periods 71770022 Active Not Available [facility] 3 09:16:55 Benign essential hypertensi on 7353426 Active 2018 Not Available [facility] 3 09:16:54 Acne 55165873 Active 2021 Not Available [facility] 3 09:16:54 Anxiety 71250464 Active 2021 Not Available [facility] 3 09:16:55 Snoring 66631864 Active 2021 Not Available [facility] 3 09:16:55 Weight gain 7764448 Active 2021 Not Available [facility] 3 09:16:55 Subclinica l hypothyroi dism 68565627 Active 2021 Not Available [facility] 3 09:16:55 Deviated nasal septum 416559575 Active 2021 Not Available [facility] 3 09:16:54 Hypertroph y of nasal turbinates 22958897 Active 2021 Not Available [facility] 3 09:16:54 Herpes labialis 2865436 Active 2022 Not Available [facility] 3 09:16:54 Pain of right calf 3569355240115 103 Active 2022 HIWOT Lucas [address], [place], [address] , Experiment [employer] [facility] 3 09:46:01 Muscle tension pain 414892085 Active 2022 HIWOT Lucas [address], [address], [place], [address] , [employer] [facility] 3 10:37:33 Migraine 87757146 Active 2022 [facility] Lucas [address], [address], [place], [address] , [employer] [facility] 3 13:13:13 Insulin resistance 410452581 Active 2022 [facility] [address], [address], [place], [address] , [facility] [employer] [facility] 3 10:32:12 Congestion of nasal sinus 99372688 Active 2022 [facility] [address], [address], [place], [address] , [facility] [employer] [facility] 3 16:00:02 Notes:04/2020-POS COVID Problem Notes None recorded. Procedures Surgical History Date Name Laterality Status Provider Name and Address Organization Details Recorded Time 11/24/19 SEPTOPLASTY (SURG) completed Not Available [facility] 07/07/2022 09:19:35 03/24/20 21 Most Recent Mammogram completed Not Available [facility] 07/07/2022 09:14:20 10/28/19 21 Date of Last Pap Smear completed Not Available [facility] 07/07/2022 09:14:19 10/08/19 20 Orthopedic Surgery completed Not Available [facility] 07/07/2022 09:14:20 02/20/20 19 Date of Last Colonoscopy completed Not Available [facility] 07/07/2022 09:14:19 02/20/20 19 Colonoscopy completed Not Available [facility] 07/08/19 23 09:14:20 04/05/20 18 nasal septoplasty completed Not Available [facility] 07/07/2022 09:14:20 04/20/20 17 BROKER ASSISTANT Procedure completed Not Available [facility] 2022 09:14:20 04/24/20 12 BROKER ASSISTANT Procedure completed Not Available [facility] 2022 09:14:20 03/31/20 10 BROKER ASSISTANT Surgery completed Not Available [facility] 07/08/19 09:14:20 other completed Not Available [facility] 05/2022 09:14:20 Appendectomy completed Not Available [facility] 07/07/2022 09:14:20 BROKER ASSISTANT Surgery completed Not Available [facility] 07/07/2022 09:14:20 Imaging Results None recorded. Procedure [...] Not Available Not Available No t Available [place] Thyroid 30 mg tablet TAKE 1 TABLET [...] completed Not Available Not Available Not Available [facility] ODT 75 mg disintegrat ing tablet TAKE [...] 3 177.8 cm 97.3 [degF] 34.5 kg/m2 660378. 96 g 16 /min 97 % 97 % 96 /min 122/82 mm[Hg] DARIA Mari [place] [email or web address] [facility] 3 09:17:15 Date Recorded Systolic And Diastolic Provider Name and Address Organization Details Last Updated DateTime 09/16/2022 140/80 mm[Hg] HIWOT Lucas [address], [address], [address], [place] [email or web address] [facility] 09/16/2022 13:15:11 Date Recorded Body height Body temperature Body mass index (BMI) Body weight Respiratory rate Oxygen saturation Oxygen saturation in Arterial blood by Pulse oximetry Heart rate Systolic And Diastolic Provider Name and Address Organization Details Last Updated DateTime 3 177.8 cm 97.8 [degF] 34.9 kg/m2 041571. 95 g 16 /min 99 % 99 % 68 /min 138/80 mm[Hg] DARIA Mari [place] [email or web address] [facility] 3 12:30:41 Date Recorded Body height Body temperature Provider N mj and Address Organization Details Last Updated DateTime 10/29/2021 177.8 cm 98.1 [degF] Not Available [facility] 07/07/2022 09:16:18 Date Recorded Body height Systolic And Diastolic Provider Name and Address Organization Details Last Updated DateTime 12/21/2022 177.8 cm 148/102 mm[Hg] Nickie Briggs RN [place] [email or web address] [facility] 12/21/2022 10:45:02 Date Recorded Body mass index (BMI) Provider Name and Address Organization Details Last Updated DateTime 03/22/2023 33 kg/m2 HIWOT Lucas [address], [address], [place], [address], Experiment [employer] 04/03/2023 14:39:00 Date Recorded Body height Body weight Body temperature Heart rate Oxygen saturation Oxygen saturation in Arterial blood by Pulse oximetry Systolic And Diastolic Provider Name and Address Organization Details Last Updated DateTime 3 177.8 cm 953858. 25 g 97.3 [degF] 94 /min 97 % 97 % 126/86 mm[Hg] Nickie Briggs RN [facility] 3 12:04:52 Social History Question Answer Notes LastModified by Organizat ion Details LastModified Time Tobacco Smoking Status Never Smoker YOSELIN Massey, [facility] [employer] [facility] 12/21/2022 10:25:48 What Is Your Level Of Caffeine Consumption? Moderate [id number] Information not available 07/07/2022 How Much Tobacco Do You Chew? None [id number] Information not available 07/07/2022 In The 14 [...] Type Of Diet Are You Following? REGULAR [id number] Information not available 07/07/2022 Which Illicit Or Recreational Drugs Have You Used? None Information not available 12/21/2022 Have There Been Any Changes To Your Family Or Social Situation? No Information no t available 12/21/2022 Do You Use Insect Repellent Routinely? No Information not available 12/21/2022 What Is Your Relationship Status? [id number] Information not available 07/07/2022 Do You Use Your Seat Belt Or Car Seat Routinely? Yes Information not available 12/21/2022 Do You Have Smoke And Carbon Monoxide Detectors In Your Home? Yes Information not available 12/21/2022 How Much Tobacco Do You Smoke? No [id number] Information not available 07/07/2022 Do You Use [...] is your level of alcohol consumption? Occasional [id number] [id number] Information not available 07/07/2022 Do you or have you ever used smokeless tobacco? Never used smokeless tobacco MIGRATION.[id number] Information not available 07/07/2022 Are you currently employed? 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 Never used electronic cigarettes Information not available 12/21/2022 What is your exercise level? Moderate [id number] Information not available 07/07/2022 Mental Status None recorded. Family History Relationship Description Onset Age of this Age Resolved Age Notes LastModified by Organization Details LastModified Time Mother Diabetes mellitus [id number] [id number] Not available 07/07/2022 09:14:22 Mother Malignant neoplasm of breast x 2 [id number].821 [id number] Not available 07/07/2022 09:14:22 Mother Hypertensive disorder [id number].[id number] Not available 07/07/2022 09:14:22 Paternal Uncle Malignant neoplasm of lung MIGRATION.655 [id number] Not available 07/07/2022 09:14:22 Father Hypertensive disorder [id number].921 [id number] Not available 07/07/2022 09:14:22 Father Problem drinker [id number].671 [id number] Not available 07/07/2022 09:14:22 Father Pulmonary emphysema MIGRATION.635 [id number] Not available 07/07/2022 09:14:22 Medical History Condition Response ANXIETY DISORDER Y BLOOD CLOTS Y DIZZINESS Y HISTORY WITH COMPLICATIONS WITH ANESTHES IA ? Y HYPOTHYROIDISM Y OTHER # 1 Y DEPRESSION (INCLUDING POST ) Y BOWEL PROBLEMS Y HYPERTENSION Y Gynecological History Statement/Question Response [...] mcg/0.3 mL dose 09/03/2020 completed Not Available [facility] 3 09:19:30 COVID-19, mRNA, LNP-S, PF, 30 mcg/0.3 mL dose 08/12/2020 completed Not Available [facility] 3 09:19:30 Past Encounters Encounter ID Performer Location Encounter Start Date Encounter Closed Date Diagnosis/Indication Diagnosis SNOMED-CT Code Diagnosis ICD10 Code Diagnosis IMO Codes Diagnosis Note [id number] [facility] ic_[place] _ATHENA_M IGRATION_ DEFAULT_1 _1 , 10/27/2020 00:00:00 10/27/2020 17:24:33 [id number] HIWOT Lucas [facility] Internal Med [place] [address] [place] [address] 11/20/2020 00:00:00 12/05/2020 17:47:23 [id number] Markell Pratt MD [facility] Internal Med [place] [address] [place] [address] 09/15/2021 00:00:00 10/06/2021 18:25:32 [id number] Markell Pratt MD [facility] Internal Med [place] [address] [place] [address] 10/27/2021 00:00:00 11/04/2021 13:51:55 [id number] Khoa Ly MD [facility] ENT [place] [address] [place] [address] 10/29/2021 00:00:00 10/29/2021 14:24:04 [id number] HIWOT Lucas [facility] Internal Med [place] [address] [place] [address] 07/13/2022 09:08:37 07/13/2022 09:55:31 Pain of right calf 9817934118 580013 M79.661 onset over 2 years ago after right ankle surgery that she had nerve block in her calf area:STAT RLE venous doppler check;Upda te negative for DVT. Muscle tension pain 2790 08436 M79.10 Trial of soma muscle relaxer or the Right lower calf muscular pain. [id number] HIWOT Lucas [facility] Internal Med [place] [address] [place] [address] 09/16/2022 12:25:19 09/16/2022 13:24:31 Subclinical hypothyroidism 46629581 E02 on supplement . due for TFTs Anxiety 35064471 F41.9 stable on buspar 5mg bid Body mass index 30+ - obesity 875887347 Z68.34 pt would like to get raji for weight loss . aware this may not be approved Benign ess ential hypertension 4882874 I10 stable on losartan 50mg daily Cholesterol screening 27 7235187 Z13.220 fasting lipids due Diabetes m ellitus screening 468226088 Z13.1 diabetes screening due Long-term drug therapy 575837388 Z79.899 all labs due Migraine 53005059 G43.90 9 start nurtec ODT one tab PRN 24 hours Adult [facility] th examination [id number] Z00.01 well exam completed [id number] HIWOT Lucas [facility] Internal Med [place] [address] [place] [address] 12/21/2022 10:24:57 12/21/2022 10:47:32 [id number] HIWOT Lucas [facility] Internal Med [place] [address] [place] [address] 03/22/2023 12:00:19 03/22/2023 12:53:16 Benign essential hypertension 2629161 I10 stable on losartan 50mg daily Fredinica l hypothyroidism [id number] E02 pt has been on armour thyroid from specialist provider. Anxiety [id number] F41.9 stable on buspar 5mg bid Body mass index 30+ - obesity [id number] Z68.34 pt is losing weight Long-term drug therapy [id number] Z79.899 labs are UTD Health Concerns Section Related Observation LastModified by Organization Detai ls LastModified Time None Recorded Concern Status LastModified by Organization Details LastModified Time None Recorded Advance Directives Directive None Recorded Payers Insurance Date Sequence Insurance Name Policy Number Policy [place] Covered Member ID [place] Member ID Guarantor Name 04/04/2023 1 [place] [id number] 2 Yanira Langston [id number] Yanira Langston Notes Date Note Type Note Provider Name and Address Organization Details Recorded Time 3 text/html Generic HPI TemplateReported by PatientHPIFor location, (r lower leg). For quality, (tightness). For severity, (pain rated 10/10 at worse and constant 3/10). For duration, (constant). For onset/timing, (since 2019 but has gotten worse in the past 3 months). For context, (old injury from surgery). For aggravating factors, (walking). For alleviating factors, (nothing she has done yet.). For associated symptoms, (feeling of a ball in bottom of foot).When she had surgery on her R ankle in 2019 she got a nerve block that she never really healed from In old system there is an order for repeat thyroid labs. She did not get them done. HIWOT Lucas [address] [facility] [address], [place], [address], [facility] [employer] 08/01/2022 17:53:20 3 text/html Anxiety/DepressionReporte d by PatientHPIFor quality, patient reportssymptoms worse in the eveningandsymptoms worse during the day. For severity, patient reportsinterference with sleepandinterference with workbut reportsdenies suicidal ideationsandable to maintain relationships. For context, patient reportsmajor life stressorsandtrouble at work (stressful job). For duration, patient reportssymptoms lasting over 2 weeks. For onset/timing, patient reportsstill present. For associated symptoms, patient reportsdenies homicidal ideations,no significant weight gain,no significant weight loss,no visual/auditory hallucinations,no delusions, andno shortness of breath. For modifying factors, (rx). HypertensionReported by PatientHPIFor duration, patient reportshas noted for years. For onset/timing, patient reportsbetter. For alleviating factors, patient reportsmedication. For associated symptoms, patient reportsno shortness of breath,no fatigue,no palpitations,no decline in exercise capacity, andno snoring. Wellness HIWOT Lucas [address], [place], [address], [employer] 10/06/2022 22:30:19 3 text/html Anxiety/DepressionReporte d by PatientHPIFor severity, patient reportsinterference with sleepandinterference with workbut reportsdenies suicidal ideationsandable to maintain relationships. For context, patient reportsmajor life stressorsandtrouble at work (stressful job). For duration, patient reportssymptoms lasting over 2 weeks. For onset/timing, patient reportsstill present. For associated symptoms, patient reportsdenies homicidal ideations,no significant weight gain,no significant weight loss,no visual/auditory hallucinations,no delusions, andno shortness of breath. For quality, (doesnt matter time of day). For modifying factors, (rx). HypertensionReported by PatientHPIFor duration, patient reportshas noted for years. For onset/timing, patient reportsbetter. For alleviating factors, patient reportsmedication. For associated symptoms, patient reportsno shortness of breath,no fatigue,no palpitations,no decline in exercise capacity, andno snoring. HIWOT Lucas [address], [place], [address], [employer] 04/03/2023 14:41:02 OBGyn Episode No OBEpisode recorded.
--- OUTSIDE RECORDS SUMMARY | 2025-02-22 08:12 | XMS_ITS | Clinical Summary ---
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 This disclosure is being madepursuant to the Care Everywhere program and may not contain all information available regarding this patient. 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 [employer]
[2025-02-22 09:03] LABS: Hematocrit 44.8 % (37.0-47.0); Hemoglobin 14.9 g/dL (12.0-15.0); Mean Corpuscular HGB Conc 33.3 g/dl (32-36); Mean Corpuscular Hemoglobin 31.2 pg (26-34); Mean Corpuscular Volume 93.7 fl (80-100); Platelet Count Result 356 k/mm3 (150-375); Red Blood Count 4.78 M/mm3 (4.2-5.4); White Blood Count 6.2 K/mm3 (4.5-10.0)
[2025-02-22 09:38] LABS: Albumin Level 4.4 g/dL (3.5-5.1); Anion Gap 9 mmol/L (4-12); Blood Urea Nitrogen 13 mg/dL (7-17); Calcium 9.1 mg/dL (8.4-10.2); Carbon Dioxide 24 mmol/L (22-30); Chloride 105 mmol/L (98-107); Estimated Glomerular Filt Rate 45; Glucose 90 mg/dL (65-110); Potassium 4.1 mmol/L (3.4-5.0); Sodium 138 mmol/L (137-145)
[2025-02-22 09:48] LABS: Parathyroid Intact 28.7 pg/mL (14.5-75.2)
== END 2025-02-22 08:02 | disposition home or self-care (01) ==
LOC: ANHLAB 08:08
PROVIDERS: PCP Physician Assistant; Visit Provider Internal Medicine Nephrology
DX: R94.4 Abnormal results of kidney function studies (principal); R76.0 Raised antibody titer
CPT/HCPCS: 36415; 80069; 83970; 85027; 86037